=== PATIENT | male | born 1930 | race Caucasian/White ===

== ENCOUNTER 2016-09-07 15:46 | Inpatient (IN) | payer MEDICAID, MEDICARE ==
[2016-09-07] VITALS (8 sets, daily range): BP systolic 162–215; BP diastolic 80–98; PULSE 80–90; RESP 20; TEMP 98.3; O2SAT 93–94; Ht 181.6 cm; Wt 81.6 kg
[~2016-09-07] VITALS: Ht 181.6 cm; Wt 81.6 kg
[2016-09-07] MEDS ORDERED: BISACODYL 10 MG SUPPOSITORY RECTALLY PRN (16:00)
[2016-09-07] MEDS ORDERED: MILK OF MAGNESIA 30 ML SUSP PO PRN (16:00)
[2016-09-07] MEDS ORDERED: NITROGLYCERIN 0.4 MG SUBLINGUAL TABLET SL PRN (16:00)
[2016-09-07] MEDS ORDERED: MAG-AL + SIM LIQUID 30 ML UDC PO PRN (16:00)
[2016-09-07] MEDS ORDERED: PRN ORDERS MC (16:00)
[2016-09-07] MEDS ORDERED: ONDANSETRON 4mg/2ml INJECTION IV PRN (16:00)
--- NOTE | 2016-09-07 16:00 | NUR ---
ADMIT PT ADMITTED TO ROOM 110. PT ASSISTED TO BED WITH THE HELP OF 1 STAFF MEMBER, AND A GAIT BELT FROM THE WHEELCHAIR TO THE BED. THE PATIENT WAS UNABLE TO MOVE ADEQUATELY WITH THIS ASSIST. STAFF ASSISTED WITH A STAND AND PIVOT MOVEMENT. THE PATIENT DID SAFELY GET FROM THE WHEELCHAIR TO THE BED. THE PATIENT DID COMPLAIN OF PAIN WITH MOVEMENT. PT'S DAUGHTER ELIEL CHAN (DPOA) WAS PRESENT UPON ADMISSION. PT SETTLED INTO BED AT THIS TIME. STAFF TO ASSESS.
--- NOTE | 2016-09-07 16:20 | NUR ---
SHAHBAZ JAIME IN ROOM SHAHBAZ JAIME IN ROOM AT THIS TIME TO VISIT WITH THE PATIENT AND FAMILY REGARDING ADMISSION.
--- NOTE | 2016-09-07 16:52 | HPPDOC ---
SHAHBAZ JAIME V PROTOTYPE CARPENTER 09/07/16 1641: HPI - Adult Date DATE: 09/07/16 TIME: 16:36 General Chief Complaint: Fall with right hip pain History of Present Illness Patient is a pleasant 86-year-old gentleman who resides with his in [place], [place] under the care of Dr. Master Watson with [facility]. This morning, patient was ambulating to the front door to obtain his Meals on Wheels tray when he lost his balance and fell onto the right hip. He presented to the [facility] program for evaluation by his primary care provider, however, was unable to get out of the vehicle. Due to the severity in pain. He was sent to [place] for an outpatient x-ray that revealed a nondisplaced fracture of the right femoral neck. The hospitalist services at [facility] were contacted for direct admission for further inpatient evaluation and treatment. Ketan is seen on admission with his daughter at bedside. He complains of right hip pain and is also noted to have a abrasion to the left knee. He is alert however confused about details and history. Daughter confirms that he does have dementia and verifies the patient is a do not resuscitate. All admission medical screening and labs is pending at time of examination. Past Medical History Past Medical History Dimension BPH. Chronic back pain. Chronic constipation. History of abdominal aortic aneurysm. History of cerebral aneurysm Neuropathy Orthostatic hypotension Surgical History Patient's Surgical History: Abdominal aortic aneurysm repair Cerebral aneurysm repair Current Medications Home Meds Reported Medications Vitamin B Complex (B Complex) 1 Each Tablet, 1 TAB PO AC 09/07/16 Moxifloxacin HCl (Vigamox) 30 Drop/3 Ml Drops, BOTH EYES TID, DROP 09/07/16 Tamsulosin HCl (Tamsulosin HCl) 0.4 Mg Cap.er.24h, 0.4 MG PO QOD, CAP Take 1 capsule, by mouth, 1 time a day (at BEDTIME). 09/07/16 Sennosides (Senna) 8.6 Mg Tablet, 8.6 MG PO BID Y for CONSTIPATION, TAB 09/07/16 Prednisolone Acetate (Omnipred) 10 Ml Drops.susp, 1 DROP OP 6XD, ML 09/07/16 Polyethylene Glycol 3350 (Miralax) 17 Gm Powd.pack, 17 G PO BID, BOTTLE Take 17 Grams (1 capful), by mouth, once a day. 09/07/16 Magnesium Hydroxide (Milk of Magnesia) 400 Mg/5 Ml Oral.susp, 30 ML PO DAILY 09/07/16 Clonazepam (Klonopin) 0.5 Mg Tablet, 1 TAB PO TID, TAB 09/07/16 Gabapentin (Gabapentin) 300 Mg Capsule, 1 CAP PO BID, CAP 09/07/16 Fludrocortisone Acetate (Fludrocortisone Acetate) 0.1 Mg Tablet, 0.1 MG PO DAILY , TAB 09/07/16 Atropine Sulfate in 0.9% NaCl (Atropine 0.01%-Ns Eye Drops) 10 Ml Drops, 1 DROP LEFT EYE BID 09/07/16 Aspirin *EC* (Low Dose Aspirin EC) 81 Mg Tablet.dr, 1 TAB PO DAILY, TAB 09/07/16 Lubiprostone (Amitiza) 8 Mcg Capsule, 1 CAP PO BID, CAP 09/07/16 Acetaminophen (Tylenol) 325 Mg Tablet, 2 TAB PO Q6H Y for PAIN, TAB 09/07/16 Allergies: Coded Allergies: No Known Allergies (Unverified , 09/07/16) Family History Family History: unknown by patient Social History Smoking Status: Never smoker Substance Use Type: does not use Alcohol Intake: none Marital Status: Sexuality: female partner Housing: house Advance Directives: Yes DNR, Yes DPOA for Healthcare Only (ELIEL CHAN) Social History Comments PCP Dr Master Watson ([facility] program) Review of Systems Unable to Obtain ROS Due to: dementia Comments Unable to obtain accurate ROS due to dementia. He does complain of right hip pain. Physical Exam General General Nourishment: well nourished, well developed Height (Feet): 5 Height (Inches): 11.50 Eyes Brief: FOUND: PERRL ENMT Brief: FOUND: mucosa moist, normal dentition, NOT FOUND: pharnyx erythema Respiratory Brief: FOUND: clear all sanchez, equal bilaterally, NOT FOUND: wheezes Cardiovascular (brief) Cardiac Brief: FOUND: regular rate, regular rhythm, NOT FOUND: murmur, pedal edema Abdomen (brief) Abdominal Brief: FOUND: BS normo active x4, soft Musculoskeletal (brief) Musculoskeletal Brief: FOUND: tenderness Comments Right leg is shortened Neurologic (brief) Neurological Brief: FOUND: cranial 2-12 intact Neurologic RN Documented GCS Eye Opening: Verbal: Motor: Total: Psychiatric (brief) FOUND: alert, attentive, normal affect Comments Pleasantly confused Assessment & Plan Problems: (1) Fall Status: Acute Qualifiers: Encounter type: initial encounter Qualified Codes: W19.XXXA - Unspecified fall, initial encounter (2) Hip fracture, right Status: Acute Qualifiers: Encounter type: initial encounter Fracture type: closed Qualified Codes: S72.001A - Fracture of unspecified part of neck of right femur, initial encounter for closed fracture (3) BPH (benign prostatic hyperplasia) Status: Chronic (4) Peripheral neuropathy Status: Chronic (5) Orthostatic hypotension Status: Chronic (6) Chronic back pain Status: Chronic (7) Chronic constipation Status: Chronic (8) Dementia Status: Chronic (9) History of AAA (abdominal aortic aneurysm) repair Status: Resolved (10) History of cerebellar hemorrhage Status: Resolved Plan/Intensity of Service Admit patient to inpatient status under care of Dr. Beard for fall with right hip fracture. Auscultation is placed tube. Dr. Winkler for further orthopedic recommendations and treatment. Obtain the following basic medical screening on admission. CBC, CMP, INR, urinalysis, type and screen, EKG. Will of pain in one view chest x-ray, as well as pelvis with one view right hip Place Walsh catheter to dependent drainage IV lock. Will initiate IV fluids, normal saline at 100 ML per hour Patient may have regular diet this evening, however, will place patient nothing by mouth at midnight Dilaudid as needed for pain control and Zofran available as needed for nausea. Did discuss dementia and advanced directives with patient's daughter. She does verify patient is a do not resuscitate and this orders written. Will discuss further plan of care with attending, Dr. Beard. At time of discharge medical care will return to primary care provider with the [facility], Dr. Master Watson Code Status Do Not Resuscitate Hospital Course Summary Disclaimer The hospital course summary below is not to be considered part of the above Progress Note. Hospital Course Summary Admit patient to inpatient status under care of Dr. Beard for fall with right hip fracture. Auscultation is placed tube. Dr. Winkler for further orthopedic recommendations and treatment. Obtain the following basic medical screening on admission. CBC, CMP, INR, urinalysis, type and screen, EKG. Will of pain in one view chest x-ray, as well as pelvis with one view right hip Place Walsh catheter to dependent drainage IV lock. Will initiate IV fluids, normal saline at 100 ML per hour Patient may have regular diet this evening, however, will place patient nothing by mouth at midnight Dilaudid as needed for pain control and Zofran available as needed for nausea. Did discuss dementia and advanced directives with patient's daughter. She does verify patient is a do not resuscitate and this orders written. Will discuss further plan of care with attending, Dr. Beard. At time of discharge medical care will return to primary care provider with the [facility] program, TANK Lundberg MD 09/07/16 0991: Past Medical History Current Medications Home Meds Reported Medications Vitamin B Complex (B Complex) 1 Each Tablet, 1 TAB PO AC 09/07/16 Moxifloxacin HCl (Vigamox) 30 Drop/3 Ml Drops, BOTH EYES TID, DROP 09/07/16 Tamsulosin HCl (Tamsulosin HCl) 0.4 Mg Cap.er.24h, 0.4 MG PO QOD, CAP Take 1 capsule, by mouth, 1 time a day (at BEDTIME). 09/07/16 Sennosides (Senna) 8.6 Mg Tablet, 8.6 MG PO BID Y for CONSTIPATION, TAB 09/07/16 Prednisolone Acetate (Omnipred) 10 Ml Drops.susp, 1 DROP OP 6XD, ML 09/07/16 Polyethylene Glycol 3350 (Miralax) 17 Gm Powd.pack, 17 G PO BID, BOTTLE Take 17 Grams (1 capful), by mouth, once a day. 09/07/16 Magnesium Hydroxide (Milk of Magnesia) 400 Mg/5 Ml Oral.susp, 30 ML PO DAILY 09/07/16 Clonazepam (Klonopin) 0.5 Mg Tablet, 1 TAB PO TID, TAB 09/07/16 Gabapentin (Gabapentin) 300 Mg Capsule, 1 CAP PO BID, CAP 09/07/16 Fludrocortisone Acetate (Fludrocortisone Acetate) 0.1 Mg Tablet, 0.1 MG PO DAILY , TAB 09/07/16 Atropine Sulfate in 0.9% NaCl (Atropine 0.01%-Ns Eye Drops) 10 Ml Drops, 1 DROP LEFT EYE BID 09/07/16 Aspirin *EC* (Low Dose Aspirin EC) 81 Mg Tablet.dr, 1 TAB PO DAILY, TAB 09/07/16 Lubiprostone (Amitiza) 8 Mcg Capsule, 1 CAP PO BID, CAP 09/07/16 Acetaminophen (Tylenol) 325 Mg Tablet, 2 TAB PO Q6H Y for PAIN, TAB 09/07/16 Allergies: Coded Allergies: No Known Allergies (Unverified , 09/07/16) Assessment & Plan Problems: (1) Hip fracture, right Status: Acute Qualifiers: Encounter type: initial encounter Fracture type: closed Qualified Codes: S72.001A - Fracture of unspecified part of neck of right femur, initial encounter for closed fracture (2) Fall Status: Acute Qualifiers: Encounter type: initial encounter Qualified Codes: W19.XXXA - Unspecified fall, initial encounter (3) BPH (benign prostatic hyperplasia) Status: Chronic (4) Peripheral neuropathy Status: Chronic (5) Orthostatic hypotension Status: Chronic (6) Chronic back pain Status: Chronic (7) Chronic constipation Status: Chronic (8) Dementia Status: Chronic (9) History of AAA (abdominal aortic aneurysm) repair Status: Resolved (10) History of cerebellar hemorrhage Status: Resolved (11) Hypernatremia Status: Acute Assessment & Plan: POA (12) Hypokalemia Status: Acute Assessment & Plan: POA Plan/Intensity of Service Have independently interviewed and examined pt. Chart reviewed. Case discussed with Dr Watson and my PROTOTYPE CARPENTER. Care plan developed with my supervision; agree with above. Lost footing this morning and fell-sore on right hip with landing. Hurts to move leg or bear weight. Did not feel dizzy, have palpitations, or lose consciousness. When in to clinic for evaluation, but had too much pain with movement to get out of car. Sent for xray which showed hip fracture. In his typical state of health prior to injury. Breathing stable-no SOA, cough or congestion. Denies chest pressure, pain or palpitations. Reports keeps active by biking. No nausea. Lungs: clear CV: regular AB: Soft nt/nd +BS MSE: awake alert Plan: Inpatient admission secondary to hip fracture with need for surgical correction. Consult Dr Winkler for definative ortho intervention. IVF of 1/2NS with 20 KCl for hydration and to help correct electrolytes. Monitor blood counts. Control pain. Walsh to monitor urine output and minimize need to get up prior to Sx. IS for pulmonary toilet. SCD for DVT prevention preop, with Lovenox added post op. PT/OT post op to maximize functional status. DNR as per his request. Care to return to Dr Watson at time of discharge from [facility]. DVT Prophylaxis: SCD'S SHAHBAZ JAIME APRN September 07, 2016 16:41 TANK BEARD MD September 07, 2016 18:48
[2016-09-07] MEDS ORDERED: NORMAL SALINE 1,000 ML IV SCH (17:00)
--- NOTE | 2016-09-07 17:06 | DI ---
Indication: ITS.REASON: LATERAL, FRACTURE RIGHT FEMUR PROCEDURE: PELVIS W/1 VIEW RT HIP: Encounter: Initial Comparison: None Findings: Minimally displaced fracture of the subcapital right femoral neck. No additional acute fracture or dislocation seen. Mild degenerative changes in both hips and the lower lumbar spine. IVC filter noted. There is slight offset of the head neck junction noted on the crosstable lateral view. Impression: Closed posttraumatic subcapital right femoral neck fracture. .
--- NOTE | 2016-09-07 17:07 | DI ---
Indication: ITS.REASON: Pre op PROCEDURE: CHEST 1 VIEW: Encounter: Initial Comparison: None FINDINGS: The lungs are clear. There is no abnormal airspace opacity, pleural effusion or pneumothorax identified. The heart size, pulmonary vasculature and mediastinum are within normal limits. Degenerative change in the spine. IMPRESSION: No acute cardiopulmonary abnormality. .
[2016-09-07] MEDS ORDERED: PRED10DR15 OP (17:08)
[2016-09-07] MEDS ORDERED: ASPI-914 PO (17:08)
[2016-09-07] MEDS ORDERED: GABA-338 PO (17:08)
[2016-09-07] MEDS ORDERED: ATRO10DR LEFT EYE (17:08)
[2016-09-07] MEDS ORDERED: MAGN400O4 PO (17:08)
[2016-09-07] MEDS ORDERED: POLY17PO6 PO (17:08)
[2016-09-07] MEDS ORDERED: TAMS0.4C47 PO (17:08)
[2016-09-07] MEDS ORDERED: SENN-156 PO (17:08)
[2016-09-07] MEDS ORDERED: MOXI3DRO BOTH EYES (17:08)
[2016-09-07] MEDS ORDERED: FLUD0.1T PO (17:08)
[2016-09-07] MEDS ORDERED: VITA-302 PO (17:08)
[2016-09-07] MEDS ORDERED: ACET-2321 PO (17:08)
[2016-09-07] MEDS ORDERED: CLON0.5T PO (17:08)
[2016-09-07] MEDS ORDERED: LUBI8CAP PO (17:08)
[2016-09-07 17:15] LABS: INR 1.06 (0.76-1.04); PROTHROMBIN TIME 11.6 SEC (9.31-12.49)
[2016-09-07 17:16] LABS: BASOPHILS % (AUTO) 0.1 % (0-2); EOSINOPHILS % (AUTO) 0.3 % (0-4); HCT - HEMATOCRIT 34.3 % (41-53); HGB - HEMOGLOBIN 11.5 GM/DL (13.5-17.5); IMMATURE GRANULOCYTE # (AUTO) 0.03 T/MM3 (0.00-0.03); IMMATURE GRANULOCYTE % (AUTO) 0.3 % (0.0-0.5); LYMPHOCYTES # (AUTO) 1.2 T/MM3 (1-4.8); LYMPHOCYTES % (AUTO) 13.1 % (23-45); MEAN CORPUSCULAR HGB 32.8 UUG (26-34); MEAN CORPUSCULAR HGB CONC(MCHC 33.5 GM/DL (31-37); MEAN CORPUSCULAR VOLUME 97.7 UM3 (80-100); MEAN PLATELET VOLUME 10.7 UM3 (9.4-12.4); MONOCYTES # (AUTO) 0.6 T/MM3 (0-0.8); MONOCYTES % (AUTO) 6.4 % (0-9.0); NEUTROPHILS #(AUTO)-ABSOLUTE 7.2 T/MM3 (1.8-7.7); NEUTROPHILS % (AUTO) 79.8 % (33-66); RED BLOOD COUNT 3.51 M/MM3 (4.50-5.90)
[2016-09-07 17:24] LABS: ALBUMIN 3.9 G/DL (3.5-5.0); ALBUMIN/GLOBULIN RATIO 1.4 RATIO (1.1-2.2); ALKALINE PHOSPHATASE 97 U/L (38-126); ALT (SGPT) 44 U/L (21-72); ANION GAP 14 MEQ/L (5-15); AST (SGOT) 24 U/L (17-59); BUN/CREATININE RATIO 20 RATIO (6-26); CALCIUM 9.2 MG/DL (8.4-10.2); CHLORIDE 105 MEQ/L (98-107); CO2 - CARBON DIOXIDE 29 MEQ/L (22-30); CREATININE 1.1 MG/DL (0.8-1.5); GLOMERULAR FILTRATION RATE 63; GLUCOSE 107 MG/DL (75-110); POTASSIUM 3.5 MEQ/L (3.6-5); SODIUM 148 MEQ/L (134-144); TOTAL PROTEIN 6.7 G/DL (6.3-8.2)
[2016-09-07 17:36] LABS: BLOOD, URINE 2+ (NEGATIVE); COLOR,URINE YELLOW (YELLOW); LEUKOCYTE ESTERASE ,URINE NEGATIVE (NEGATIVE); NITRITE,URINE NEGATIVE (NEGATIVE); UROBILINOGEN,URINE 0.2 EU/DL (NORMAL)
[2016-09-07] MEDS: HYDROMORPHONE 2mg/ml INJECTION IV PRN ×2 (17:42→21:55)
[2016-09-07 17:43] LABS: SQUAMOUS EPITHELIAL CELL,UR NONE SEEN
[2016-09-07 17:44] LABS: BACTERIA,URINE NONE SEEN (NEGATIVE)
[2016-09-07] MEDS ORDERED: CLONIDINE 0.1 MG TABLET PO ONE (18:30)
[2016-09-07] MEDS: NS KCL 20 MEQ 1,000 ML IV SCH (18:30)
--- NOTE | 2016-09-07 19:58 | NUR ---
SHIFT SUMMARY PATIENT IS ALERT AND ORIENTED X3 AT TIMES. PATIENT HAS A HX OF DEMENTIA. PATIENTS VITALS ARE STABLE AND PATIENT IS ON ROOM AIR. SMALLS IS PATENT AND DRAINING. PATIENT HAS REQUIRED 1X PRN IV PAIN MEDICATION. PATIENT FAMILY HAS BEEN AT BEDSIDE. WILL CONTINUE TO MONITOR.
--- NOTE | 2016-09-07 20:50 | NUR ---
Lab calls with results of Blood type, Screen and cross match. Lab reports positive screen; antibody present so panal was ran with Aj A present; antigen found and done. Two units of compatible blood in House if needed.
[2016-09-07] MEDS: CALCIUM 600mg + VIT D 400 TABLET PO SCH (21:52)
[2016-09-07] MEDS: DUTASTERIDE 0.5 MG CAPSULE PO SCH (21:52)
[2016-09-07] MEDS: TAMSULOSIN 0.4 MG CAPSULE PO SCH (21:53)
[2016-09-07] MEDS: POLYETHYL.GLYCOL 3350 PACKET 17gm PO SCH (21:59)
[2016-09-07] MEDS: SENNA + DOCUSATE TAB PO SCH (22:00)
[2016-09-08] VITALS (30 sets, daily range): BP systolic 119–186; BP diastolic 52–93; PULSE 74–99; RESP 12–23; TEMP 96–98.5; O2SAT 91–100
[2016-09-08] MEDS: HYDROMORPHONE 2mg/ml INJECTION IV PRN ×3 (01:44→09:17)
[2016-09-08] MEDS: NS KCL 20 MEQ 1,000 ML IV SCH ×2 (03:47→22:22)
[2016-09-08 05:30] LABS: BASOPHILS % (AUTO) 0.2 % (0-2); EOSINOPHILS # (AUTO) 0.1 T/MM3 (0-0.5); EOSINOPHILS % (AUTO) 1.8 % (0-4); HCT - HEMATOCRIT 29.8 % (41-53); HGB - HEMOGLOBIN 10.2 GM/DL (13.5-17.5); IMMATURE GRANULOCYTE # (AUTO) 0.02 T/MM3 (0.00-0.03); IMMATURE GRANULOCYTE % (AUTO) 0.3 % (0.0-0.5); LYMPHOCYTES # (AUTO) 0.9 T/MM3 (1-4.8); LYMPHOCYTES % (AUTO) 13.6 % (23-45); MEAN CORPUSCULAR HGB 33.2 UUG (26-34); MEAN CORPUSCULAR HGB CONC(MCHC 34.2 GM/DL (31-37); MEAN CORPUSCULAR VOLUME 97.1 UM3 (80-100); MEAN PLATELET VOLUME 11.4 UM3 (9.4-12.4); MONOCYTES # (AUTO) 0.7 T/MM3 (0-0.8); NEUTROPHILS #(AUTO)-ABSOLUTE 4.9 T/MM3 (1.8-7.7); NEUTROPHILS % (AUTO) 73.1 % (33-66); RED BLOOD COUNT 3.07 M/MM3 (4.50-5.90); WBC - WHITE BLOOD COUNT 6.6 T/MM3 (4.5-11.0)
[2016-09-08 05:36] LABS: ANION GAP 9 MEQ/L (5-15); BUN/CREATININE RATIO 20 RATIO (6-26); CALCIUM 8.7 MG/DL (8.4-10.2); CHLORIDE 106 MEQ/L (98-107); CO2 - CARBON DIOXIDE 27 MEQ/L (22-30); GLOMERULAR FILTRATION RATE 71; GLUCOSE 132 MG/DL (75-110); POTASSIUM 3.6 MEQ/L (3.6-5); SODIUM 142 MEQ/L (134-144)
--- NOTE | 2016-09-08 06:30 | NUR ---
END OF SHIFT SUMMARY: Alert and orientated with episodes of forgetfulness and confusion. Remains pleasant and cooperative. Dilaudid 0.5 mg. IV given X 3 during this shift for pain in right hip area. Slept at intervals. NS with 20 meq. KCL infuses at 75/cc/hr. Walsh cathater patent with clear yellow urine draining to DD bag. Labs this morning show Potassium ands Sodium levels within normal range this AM. This Nurse spoke with Pt. , Aury Godwin this AM to let her know Dr. Emanuel had been in to see her ; with surgery planned for today. Aury states Son, Mike Godwin is DPOA. Passed onto Day shift Nurse.
--- NOTE | 2016-09-08 06:41 | CONSPD ---
Consultation Info Date DATE: 09/08/16 TIME: 06:32 Attending Physician Nic Hernandez Reason for Consultation: Right Subcapital Femoral Neck Fracture Impression/Recommendation Impression/Recommendation: (1) Fracture of femoral neck, right, closed Status: Acute Qualifiers: Encounter type: initial encounter Qualified Codes: S72.001A - Fracture of unspecified part of neck of right femur, initial encounter for closed fracture Recommendation: Patient has dementia with acute closed right femoral neck fracture that is angulated in varus. Recommend right hip hemiarthroplasty for comfort, early mobilization, and stability. Discussed the surgery including the risks, benefits, alternatives and potential complications including, but not limited to: continued pain, possible instability, decreased mobility, anesthesia risk, neurovascular injury, infection and others. Patient is DNR. Family wishes to proceed. Will plan to schedule for today. Depending on OR time and availability, could be myself or Dr. Winkler as primary surgeon. NPO at this time. Continue pain control. DVT prophylaxis mechanically until post op. Ortho HPI HPI Elements Location: FOUND hip (right) Injury: Yes (fall at home) Onset: Sudden Radiating: No Duration: FOUND 12-24 hours Previous Surgery: No Previous Injury: No Aggrevated by: FOUND standing, FOUND walking, FOUND all activity, FOUND getting out of a chair Associated Symptoms: NOT FOUND swelling, FOUND sensation of giving way, NOT FOUND numbness Treatments Tried: FOUND pain medications, FOUND rest X-ray Findings: FOUND sub-capital fracture (angulated, varus) Recommendation: FOUND FHR HPI 86 yo male sp fall at home. Transferred from [place] to [place]. Admitted to hospital service. Review of Systems Unable to Obtain ROS Due to: dementia Past Medical History Adult Problem List Updates Dimension BPH. Chronic back pain. Chronic constipation. History of abdominal aortic aneurysm. History of cerebral aneurysm Neuropathy Orthostatic hypotension Surgical History Patient's Surgical History: Abdominal aortic aneurysm repair Cerebral aneurysm repair Current Medications Acetaminophen (Tylenol) 325 Mg Tablet, 2 TAB PO Q6H PRN for PAIN, (Reported) Aspirin *EC* (Low Dose Aspirin EC) 81 Mg Tablet.dr, 1 TAB PO DAILY, (Reported) Last Taken: UNKNOWN on Unknown Date & Time Clonazepam (Klonopin) 0.5 Mg Tablet, 1 TAB PO TID, (Reported) Last Taken: UNKNOWN on Unknown Date & Time Fludrocortisone Acetate ( Fludrocortisone Acetate) 0.1 Mg Tablet, 0.1 MG PO DAILY, (Reported) Last Taken: UNKNOWN on Unknown Date & Time Gabapentin (Gabapentin) 300 Mg Capsule, 1 CAP PO BID, (Reported) Last Taken: UNKNOWN on Unknown Date & Time Lubiprostone (Amitiza) 8 Mcg Capsule, 1 CAP PO BID, (Reported) Last Taken: UNKNOWN on Unknown Date & Time Magnesium Hydroxide (Milk of Magnesia) 400 Mg/5 Ml Oral.susp, 30 ML PO DAILY, (Reported) Last Taken: UNKNOWN on Unknown Date & Time Polyethylene Glycol 3350 (Miralax ) 17 Gm Powd.pack, 17 G PO BID, (Reported) Take 17 Grams (1 capful), by mouth, once a day. Last Taken: UNKNOWN on Unknown Date & Time Sennosides (Senna) 8.6 Mg Tablet , 8.6 MG PO BID PRN for CONSTIPATION, (Reported) Last Taken: UNKNOWN on Unknown Date & Time Tamsulosin HCl (Tamsulosin HCl) 0.4 Mg Cap.er.24h, 0.4 MG PO QOD, (Reported) Take 1 capsule, by mouth, 1 time a day (at BEDTIME). Last Taken: UNKNOWN on Unknown Date & Time Vitamin B Complex (B Complex) 1 Each Tablet, 1 TAB PO AC, (Reported) Last Taken: UNKNOWN on Unknown Date & Time Allergies Allergies: Coded Allergies: No Known Allergies (Unverified , 09/07/16) Family History Family History: unknown by patient Vaccines No Social History Smoking Status: Never smoker Substance Use Type: does not use Alcohol Intake: none Marital Status: Sexuality: female partner Housing: house Advance Directives: Yes DNR, Yes DPOA for Healthcare Only (ELIEL CHAN) Physical Exam General General: well nourished, well developed, no acute distress Respiratory FOUND non-labored, NOT FOUND rales, NOT FOUND wheezes Cardiovascular FOUND pedal pulses intact, FOUND regular rate, FOUND regular rhythm, NOT FOUND peripheral edema Capillary Refill: <2 sec Abdomen Abdominal: FOUND BS normo active x4, FOUND soft, NOT FOUND distended, NOT FOUND tender Musculoskeletal Musculoskeletal : Side: Right Hip: FOUND abnormal rotation, FOUND painful PROM, FOUND tender over trochanter, FOUND unequal leg length Musculoskeletal Brief: FOUND: loss of motion, tenderness Integumentary FOUND dry, FOUND pink, FOUND warm Neurologic FOUND intact to light touch, FOUND no deficits Psychiatric FOUND alert, FOUND normal affect, NOT FOUND oriented Laboratory Laboratory Tests Test 09/07/16 16:51 09/07/16 16:52 09/07/16 17:21 09/08/16 04:25 25-Hydroxy Vitamin D Total Pending White Blood Count 9.0T/MM3 6.6T/MM3 Red Blood Count 3.51M/MM3 3.07M/MM3 Hemoglobin 11.5GM/DL 10.2GM/DL Hematocrit 34.3% 29.8% Mean Corpuscular Volume 97.7UM3 97.1UM3 Mean Corpuscular Hemoglobin 32.8UUG 33.2UUG Mean Corpuscular Hemoglobin Concent 33.5GM/DL 34.2GM/DL RDW Standard Deviation 44.6FL 43.4FL Platelet Count 130T/MM3 112T/MM3 Mean Platelet Volume 10.7UM3 11.4UM3 Immature Granulocyte % (Auto) 0.3% 0.3% Neutrophils (%) (Auto) 79.8% 73.1% Lymphocytes (%) (Auto) 13.1% 13.6% Monocytes (%) (Auto) 6.4% 11.0% Eosinophils (%) (Auto) 0.3% 1.8% Basophils (%) (Auto) 0.1% 0.2% Absolute Immature Granulocyte (auto 0.03T/MM3 0.02T/MM3 Absolute Neutrophils (auto) 7.2T/MM3 4.9T/MM3 Absolute Lymphocytes (auto) 1.2T/MM3 0.9T/MM3 Absolute Monocytes (auto) 0.6T/MM3 0.7T/MM3 Absolute Eosinophils (auto) 0.0T/MM3 0.1T/MM3 Absolute Basophils (auto) 0.0T/MM3 0.0T/MM3 Prothromb Time International Ratio 1.06 Turbidity < 20 < 20 Sodium Level 148MEQ/L 142MEQ/L Potassium Level 3.5MEQ/L 3.6MEQ/L Chloride Level 105MEQ/L 106MEQ/L Carbon Dioxide Level 29MEQ/L 27MEQ/L Anion Gap 14MEQ/L 9MEQ/L Blood Urea Nitrogen 22.0MG/DL 20.0MG/DL Creatinine 1.1MG/DL 1.0MG/DL Glomerular Filtration Rate Calc 63 71 BUN/Creatinine Ratio 20RATIO 20RATIO Glucose Level 107MG/DL 132MG/DL Calculated Osmolality 287MOSM/KG 278MOSM/KG Calcium Level 9.2MG/DL 8.7MG/DL Total Bilirubin 0.70MG/DL Icterus Index < 2 < 2 Aspartate Amino Transf (AST/SGOT) 24U/L Alanine Aminotransferase (ALT/SGPT) 44U/L Alkaline Phosphatase 97U/L Total Protein 6.7G/DL Albumin 3.9G/DL Globulin 2.8G/DL Albumin/Globulin Ratio 1.4RATIO Chemistry Specimen Hemolysis < 15 < 15 Urine Collection Type Urine Color Yellow Urine Turbidity Sl cloudy Urine pH 5.5 Urine Specific [place] 1.020 Urine Protein Trace Urine Glucose (UA) Negative Urine Ketones Negative Urine Blood 2+ Urine Nitrite Negative Urine Bilirubin Negative Urine Urobilinogen 0.2EU/DL Urine Leukocyte Esterase Negative Urine RBC 10-20/HPF Urine WBC 5-10/HPF Urine Squamous Epithelial Cells None seen Urine Bacteria None seen Urine Culture Indicated Cult not indicated Radiology Radiology Right subcap femoral neck fracture, varus alignment. NIC HERNANDEZ MD September 08, 2016 06:37
[2016-09-08] MEDS ORDERED: CEFAZOLIN 2 GM VIAL IV ONE (07:00)
[2016-09-08] MEDS ORDERED: NOZIN NASAL SWAB NS ONE (07:00)
--- NOTE | 2016-09-08 08:57 | NUR ---
CM CM IN TO VISIT WITH PT. HE IS ALERT. HIS SON/DPOA, BREANNA, IS PRESENT. CM INTRODUCES HERSELF AND EXPLAINS ROLE IN DC PLANNING. IRU V. SNF OPTIONS ARE DISCUSSED. BREANNA REPORTS THAT THEIR FIRST CHOICE WOULD BE FOR PT TO GO TO [facility] IN [place] FOR SNF. HE CONFIRMS THAT PT IS PART OF [facility] AND REALIZES THAT THEY WILL HAVE TO AUTHORIZE SNF STAY. HE IS REASSURED THAT CM WILL VISIT WITH [facility] AND [facility]. THEY ARE GIVEN [facility] LETTER AND CM CONTACT INFORMATION. LACE SCORE IS 10. Addendum: 09/08/16 at 0859 by JOSELO TRUJILLO RN Amended: Links added.
[2016-09-08] MEDS: POLYETHYL.GLYCOL 3350 PACKET 17gm PO SCH ×2 (09:00→21:39)
[2016-09-08] MEDS: CALCIUM 600mg + VIT D 400 TABLET PO SCH ×2 (09:00→21:40)
[2016-09-08] MEDS: SENNA + DOCUSATE TAB PO SCH ×2 (09:00→21:40)
--- NOTE | 2016-09-08 09:08 | NUR ---
CM VM LEFT FOR [facility] TO LET THEM KNOW THAT PT IS HOSPITALIZED AND THAT CM AND FAMILY ANTICIPATE NEED FOR SNF STAY UPON DC. CM FAXED REFERRAL TO [facility] (P# [phone]) F#[phone].
--- NOTE | 2016-09-08 09:45 | PNPDOC ---
SHAHBAZ JAIME V AGENCY CASHIER 09/08/16 0937: Subjective Date DATE: 09/08/16 TIME: 09:31 Subjective Ketan is seen today in follow up of right hip fracture. He is pleasantly confused this morning during conversation regarding his hip fracture and plan for surgery. He complains to low back soreness from laying on his back all night. Denies having chest pain, shortness of breath or GI complaints. Walsh cath intact and draining. BP 166/84. Objective Vital Signs Vital signs Vital Signs Date Time Temp Pulse Resp B/P Pulse Ox O2 Delivery O2 Flow Rate FiO2 09/08/16 09:17 16 09/08/16 07:46 81 09/08/16 07:30 97.7 166/84 94 Room Air Height (Feet): 5 Height (Inches): 11.50 Weight (Kilograms): 79.800 General General Appearance: Alert, Orientated x 1, Malnourished, Well Developed, Confused, Cooperative, No Acute Distress Eyes (Brief) Eyes: FOUND: EOMI ENMT (Brief) ENMT: FOUND: mucosa moist, normal dentition, NOT FOUND: pharnyx erythema Neck (Brief) Neck: FOUND: midline, NOT FOUND: adenopathy, carotid bruits, tracheal deviation Respiratory (Brief) Respiratory: FOUND: clear all sanchez, equal bilaterally, NOT FOUND: wheezes Cardiovascular (Brief) Cardiac: FOUND: regular rate, regular rhythm, NOT FOUND: murmur, pedal edema Capillary Refill: <2 sec Abdomen (Brief) Abdominal: FOUND: BS normo active x4, soft, NOT FOUND: distended, tender Extremities (Brief) Extremity : Side: Right Extremity: other (hip) Extremity Finding: FOUND: pain Lymphatic (Brief) Lymphatic: NOT FOUND: adenopathy Integumentary (Brief) Integumentary: FOUND: dry, pink, warm Neurologic (Brief) Neurological: FOUND: cranial 2-12 intact Psychiatric (Brief) Psychiatric: FOUND: alert, attentive, normal affect, oriented Laboratory Laboratory Laboratory Tests 09/07/16 16:52 09/08/16 04:25 Laboratory Tests 09/07/16 16:52 09/08/16 04:25 Assessment & Plan Problems: (1) Hip fracture, right Status: Acute Qualifiers: Encounter type: initial encounter Fracture type: closed Qualified Codes: S72.001A - Fracture of unspecified part of neck of right femur, initial encounter for closed fracture (2) Fall Status: Acute Qualifiers: Encounter type: initial encounter Qualified Codes: W19.XXXA - Unspecified fall, initial encounter (3) BPH (benign prostatic hyperplasia) Status: Chronic (4) Peripheral neuropathy Status: Chronic (5) Orthostatic hypotension Status: Chronic (6) Chronic back pain Status: Chronic (7) Chronic constipation Status: Chronic (8) Dementia Status: Chronic (9) History of AAA (abdominal aortic aneurysm) repair Status: Resolved (10) History of cerebellar hemorrhage Status: Resolved (11) Hypernatremia Status: Acute Assessment & Plan: POA (12) Hypokalemia Status: Acute Assessment & Plan: POA Plan/Intensity of Service 09/08/16 Planning for surgery today with Dr Emanuel for repair of right hip fracture Medically appears stable for surgery. Reviewed all labs, EKG and X-ray Will follow daily labs to monitor for post-op anemia. Hgb today is 10.2. Walsh cath to DD. Continue with Flomax and Avodart. Spoke with PCP Dr Master Watson this morning regarding post-op discharge plan. He recommends that patient will need a facility for rehab. Code Status Do Not Resuscitate Hospital Course Summary Disclaimer The hospital course summary below is not to be considered part of the above Progress Note. Hospital Course Summary Admit patient to inpatient status under care of Dr. Beard for fall with right hip fracture. Auscultation is placed tube. Dr. Winkler for further orthopedic recommendations and treatment. Obtain the following basic medical screening on admission. CBC, CMP, INR, urinalysis, type and screen, EKG. Will of pain in one view chest x-ray, as well as pelvis with one view right hip Place Walsh catheter to dependent drainage IV lock. Will initiate IV fluids, normal saline at 100 ML per hour Patient may have regular diet this evening, however, will place patient nothing by mouth at midnight Dilaudid as needed for pain control and Zofran available as needed for nausea. Did discuss dementia and advanced directives with patient's daughter. She does verify patient is a do not resuscitate and this orders written. Will discuss further plan of care with attending, Dr. Beard. At time of discharge medical care will return to primary care provider with [facility], Dr. Master Watson 09/08/16 Planning for surgery today with Dr Emanuel for repair of right hip fracture Medically appears stable for surgery. Reviewed all labs, EKG and X-ray Will follow daily labs to monitor for post-op anemia. Hgb today is 10.2. Walsh cath to DD. Continue with Flomax and Avodart. Spoke with PCP Dr Master Watson this morning regarding post-op discharge plan. He recommends that patient will need a facility for rehab. TANK BEARD MD 09/08/16 1633: Assessment & Plan Plan/Intensity of Service Have independently interviewed and examined pt. Chart reviewed. Case discussed with CM and my AGENCY CASHIER. Care plan developed with my supervision; agree with above. Doing well post op this afternoon. No pain or nausea. Breathing well. Lungs; clear, no distress CV: regular AB; soft nt/nd +BS MSE: awake alert appropriate Plan: Continue with supportive post op care. Continue with IVF until taking oral well. PT/OT to help functional status. Monitor blood counts. Encourage IS and deep breathing. Work on bowel motivation. Will have Haldol available as needed for agitation. CM working on Skilled options for discharge care. High risk medication involved - IV Dilaudid. DVT Prophylaxis: SCD'S, Loveradhax SHAHBAZ JAIME V AGENCY CASHIER September 08, 2016 09:37 TANK BEARD MD September 08, 2016 16:33
--- NOTE | 2016-09-08 11:03 | NUR ---
IV site Pt was pulling at gown, bumped IV site and bent the catheter. Pt instructed to leave hospital gown on, Pt verbalized understanding. IV site removed at this time, perianesthesia to restart IV site.
--- NOTE | 2016-09-08 11:05 | NUR ---
Off unit Pt transferred to Perianesthesia at this time via bed. Pt on RA.
[2016-09-08] MEDS ORDERED: BUPIVACAINE 0.25%/EPI 1:200,000 30ml SDV ONE (11:28)
[2016-09-08] MEDS ORDERED: VANCOMYCIN 1 GRAM INJECTION ONE (11:29)
[2016-09-08] MEDS: NOZIN NASAL SWAB NS SCH ×2 (11:50→16:52)
--- NOTE | 2016-09-08 11:52 | ANESPREOP ---
Anesthesia Record Date and Time DATE: 09/08/16 TIME: 11:46 Pre-Op Diagnosis Right femoral head fracture Proposed Surgical Procedure ORIF Right Hip NPO since: [place] Allergies: Coded Allergies: No Known Allergies (Unverified , 09/07/16) Ht/Wt/BMI Height: 5 ' 11.50 " Weight: 79.800 kg BMI: 27.4 kg/m2 Vital Signs Date Time Temp Pulse Resp B/P Pulse Ox O2 Delivery O2 Flow Rate FiO2 09/08/16 11:16 98.5 81 15 186/81 92 Room Air Medications Inpatient Medications Current Medications Medications (Trade) Dose Ordered Sig/Dipti Start Time Stop Time Status Last Admin Dose Admin Ondansetron HCl (Zofran) 4 mg Q6H PRN 09/07/16 16:00 Hydromorphone HCl (Dilaudid) 0.5 mg Q3H PRN 09/07/16 16:00 09/08/16 09:17 0.5 MG Miscellaneous Medication (May use PRN orders) PRN PRN 09/07/16 16:00 Magnesium Hydroxide (Mom) 30 ml DAILY PRN 09/07/16 16:00 Bisacodyl (Dulcolax) 10 mg DAILY PRN 09/07/16 16:00 Al Hydroxide/Mg Hydroxide (Maalox) 30 ml Q3H PRN 09/07/16 16:00 Acetaminophen (Tylenol Regular Strength) 1-2 TABS PO Q5H PRN 09/07/16 16:00 Nitroglycerin (Nitrostat) 0.4 mg Q5M PRN 09/07/16 16:00 Polyethylene Glycol (Miralax) 17 g BID 09/07/16 21:00 09/07/16 21:59 17 G Senna/Docusate Sodium (Senna Plus) 1 tab BID 09/07/16 21:00 09/07/16 22:00 1 TAB Tamsulosin HCl (FLOMAX 0.4 mg) 0.4 mg HS 09/07/16 22:00 09/07/16 21:53 0.4 MG Dutasteride (Avodart) 0.5 mg HS 09/07/16 22:00 09/07/16 21:52 0.5 MG Calcium/Vitamin D 1 tab 1 tab BID 09/07/16 21:00 09/07/16 21:52 1 TAB Sodium Chloride 1,000 ml @ 100 mls/hr Q10H 09/07/16 17:00 09/07/16 18:26 DC 09/07/16 17:42 100 MLS/HR Potassium Chloride/Sodium Chloride (Normal Saline w/ KCl 20 Meq) 1,000 ml @ 75 mls/hr [id number] 09/07/16 18:30 09/08/16 03:47 75 MLS/HR Multi-Ingredient Antiseptic 1 each 1 each Q8HR 09/08/16 09:00 Sodium Chloride (Normal Saline IV) 1,000 ml @ 0 mls/hr Q0M PRN 09/08/16 11:08 Acetaminophen (Tylenol) 325 Mg Tablet, 2 TAB PO Q6H PRN for PAIN, (Reported) Aspirin *EC* (Low Dose Aspirin EC) 81 Mg Tablet.dr, 1 TAB PO DAILY, (Reported) Last Taken: on Unknown Date & Time Clonazepam (Klonopin) 0.5 Mg Tablet, 1 TAB PO TID, (Reported) Last Taken: on Unknown Date & Time Fludrocortisone Acetate ( Fludrocortisone Acetate) 0.1 Mg Tablet, 0.1 MG PO DAILY, (Reported) Last Taken: on Unknown Date & Time Gabapentin (Gabapentin) 300 Mg Capsule, 1 CAP PO BID, (Reported) Last Taken: on Unknown Date & Time Lubiprostone (Amitiza) 8 Mcg Capsule, 1 CAP PO BID, (Reported) Last Taken: on Unknown Date & Time Magnesium Hydroxide (Milk of Magnesia) 400 Mg/5 Ml Oral.susp, 30 ML PO DAILY, (Reported) Last Taken: on Unknown Date & Time Polyethylene Glycol 3350 (Miralax) 17 Gm Powd.pack, 17 G PO BID, (Reported) Take 17 Grams (1 capful), by mouth, once a day. Last Taken: on Unknown Date & Time Sennosides (Senna) 8.6 Mg Tablet, 8.6 MG PO BID PRN for CONSTIPATION, (Reported) Last Taken: on Unknown Date & Time Tamsulosin HCl (Tamsulosin HCl) 0.4 Mg Cap.er.24h, 0.4 MG PO QOD, (Reported) Take 1 capsule, by mouth, 1 time a day (at BEDTIME). Last Taken: on Unknown Date & Time Vitamin B Complex (B Complex) 1 Each Tablet, 1 TAB PO AC, (Reported) Last Taken: on Unknown Date & Time Currently on Beta Chad: No Medical/Surgical History Anesthesia PMH: Denies: *Hypertension, *MA, Asthma, Blood Transfusion Reac, CHF , COPD, CVA/Stroke/TIA, Cancer, Seizures Smoking Status: Never smoker Use Chewing Tobacco?: No Substance Use Type: does not use Alcohol Intake: none Past Surgical History Orthopedic Surgeries: No Abdominal Surgeries: Yes - ABDOMINAL ANURYSM Genitourinary Surgeries: No Cardiac Surgeries: No Endocrine Surgeries: No Reproductive Surgeries: No Neurological Surgeries: No Ear Surgeries: No Nose Surgeries: No Throat Surgeries: No Other Surgeries: No Anesthesia Adverse Reactions: FOUND none Family Hx of Anesthesia Advers: none Hx of Motion Sickness: No Pertinent Findings Laboratory Tests 09/08/16 04:25 Test 09/07/16 16:52 Prothromb Time International Ratio 1.06 (0.76-1.04) EKG Rhythm: Sinus Rhythm Physical Exam Respiratory: Bilat breath sounds equal, Lungs clear Cardiovascular: FOUND Regular rate, rhythm, FOUND No murmur Airway Assessment Mallampati Score: II TMD: 3 Fingerbreadths Overall Assessment: No Airway Concerns, May Be Diff Intubation ASA: 3 Plan Regional: Spinal Discussion Discussed risks/options/alternatives of anesthesia and questions answered. Patient consents. Nursing pain assessment noted. Present: Family Member, Spouse Attestation Statement Prior to the delivery of any anesthetic medication, I examined the patient, developed the plan, obtained the patient's consent and discussed the risk and benefits of the procedure with the patient/guardian. CORWIN MURRAY CRNA September 08, 2016 11:49
[2016-09-08] MEDS: NORMAL SALINE 1,000 ML IV PRN (11:56)
[2016-09-08] MEDS ORDERED: MIDAZOLAM 2mg/2ml INJECTION ONE (12:26)
[2016-09-08] MEDS ORDERED: KETAMINE 500mg/10ml INJECTION ONE (12:27)
[2016-09-08] MEDS ORDERED: FENTANYL 100mcg/2ml INJECTION ONE (12:39)
--- NOTE | 2016-09-08 12:49 | NUR ---
CM PER VM FROM SADAF WITH [facility], THEY DO NOT CONTACT WITH [facility] FOR SNF. THEY CONTACT WITH [facility]. SADAF REQUESTS THAT RECORDS BE FAXED TO HER. SHE WILL CONTACT [facility] ABOUT SNF STAY. CM WILL LET [facility] KNOW THAT SNF STAY WILL NOT BE AUTHORIZED BY [place]. SADAF CAN BE REACHED AT P#[phone] F#[phone]
[2016-09-08] MEDS ORDERED: EPINEPHRINE 0.25 MG, BUPIVACAINE 0.25% 75 MG, MORPHINE SULFATE 15 MG, KETOROLAC 60 MG i... INJ ONE ×5 (13:15)
[2016-09-08] MEDS ORDERED: PROPOFOL 500mg 50 ML IV ONE (13:29)
[2016-09-08] MEDS ORDERED: EPHEDRINE SULFATE 50mg/ml INJECTION ONE (13:32)
[2016-09-08] MEDS ORDERED: PHENYLEPHRINE 10mg/ml INJECTION ONE (13:46)
[2016-09-08] MEDS ORDERED: PROPOFOL 200mg 20 ML IV ONE (14:16)
--- NOTE | 2016-09-08 15:12 | NUR ---
MIGUEL A PT IS IN SURGERY, BUT CM SPOKE WITH BREANNA SEALS, PT SPOUSE AND D-I-L TO LET THEM KNOW THAT [facility] DOES NOT CONTRACT WITH [facility] BUT DOES CONTRACT WITH [facility]. THEY ARE IN AGREEMENT TO POSSIBLE PLACEMENT AT [facility] FOR SNF.
[2016-09-08] MEDS ORDERED: CEFAZOLIN 1 G in NORMAL SALINE 100 ML IV SCH (15:15)
--- NOTE | 2016-09-08 15:15 | PDPROCED ---
Immediate Operative Note DATE: 09/08/16 TIME: 15:14 Preop Diagnosis: Right hip femoral neck fracture Postop Diagnosis: right hip femoral neck fracture Surgical Procedures: R FHR Surgeon: Adelfo Auditing Manager: NANCIE Jarrett Anesthesia: Other (spinal) Complications: none Estimated Blood Loss see anesthesia MORRO RODRIGUEZ September 08, 2016 15:15
--- NOTE | 2016-09-08 15:20 | ANESPO ---
Post-Op Note Date 09/08/16 Time: 15:17 Status Pt Participated in Evaluation: Pt participated in person Vital Signs Date Time Temp Pulse Resp B/P Pulse Ox O2 Delivery O2 Flow Rate FiO2 09/08/16 11:16 98.5 81 15 186/81 92 Room Air Respiratory Function: Airway patent Cardiovascular Function: Regular pulse Mental Status: Lethargic Pain Level Intensity: 0 Unable to Assess Pain Due To: INTRAOP Hydration: IV infusing Complications during Recovery None apparent Follow-Up Instructions Instructions Per Surgeon RADHA SALDIVAR CRNA September 08, 2016 15:20
--- NOTE | 2016-09-08 16:00 | NUR ---
UNABLE TO ASSES SPINAL LEVEL D/T PATIENTS DEMENTIA, UNABLE TO TELL THIS NURSE WHERE SENSATION STARTED.
--- NOTE | 2016-09-08 16:06 | NUR ---
Back to floor Pt transferred back to floor at this time via bed. VS stable on RA. Walsh catheter patent and draining. Family present at time of transfer. Mepilex dressing to the right hip c/d/i. Ice pack in place to the right hip. Pt A&O X2, some confusion at times. Pt denies pain and nausea. Side rails up X3, call light w/in reach, bed alarm on.
[2016-09-08] MEDS: CEFAZOLIN 1 G in NORMAL SALINE 100 ML IV SCH (20:10)
--- NOTE | 2016-09-08 20:54 | OPNOTEF ---
DATE OF SURGERY 09/08/2016 PREOPERATIVE DIAGNOSIS Right subcapital femoral neck fracture. POSTOPERATIVE DIAGNOSIS Right subcapital femoral neck fracture. PROCEDURE Right hip endoprosthesis (hemiarthroplasty). SURGEON Nic Emanuel MD DECKHAND MAINTENANCE Carter Lara PA-C ANESTHESIA Spinal. FLUIDS Please refer to Anesthesia chart EBL 100 mL. COMPLICATIONS None. CONDITION Stable in recovery room. IMPLANTS Starr Omnifit CAMACHO 132-degree cemented hip stem size #7 with +10 neck adjustment sleeve and size 56-mm Unitrax endoprosthesis head. Size small Artisan bone plug cement restrictor. DESCRIPTION OF PROCEDURE The patient was identified in the preoperative holding area. The operative extremity was identified and appropriately marked. Risks, benefits, alternatives and potential complications were discussed with the patient's caregivers and informed consent was obtained. The patient was taken to the operating theatre and placed supine on the operating table with a pegboard underneath. The patient then had spinal anesthesia administered by Anesthesia team. The patient was then positioned in the lateral decubitus position with the right operative hip upwards. The patient was secured to the table with appropriate well-padded pegs. The right lower extremity was then sterilely prepped and draped in the usual fashion. Surgical time-out was performed, confirmed with myself, the fire claims adjuster and the circulating nurse. Preoperative antibiotics had been given. Appropriate surgical landmarks were delineated on the right hip with a surgical marking pen. A standard lateral incision was created centered over the proximal femur extending over the greater trochanter and posteriorly. Electrocautery was used for hemostasis as necessary. The fascia was then identified. A small rent was made in the fascia overlying the greater trochanter. The IT band was then released distally. The gluteal fascia was then bluntly spread posteriorly. Soft tissue retractors were placed. The sciatic nerve was palpated and protected posteriorly. The leg was taken into slight internal rotation and abduction as a retractor was placed under the gluteus medius. This revealed the underlying piriformis tendon. Fascia superior to the piriformis was incised with a Bovie. Blunt dissection with a Bose elevator allowed us to get a retractor underneath the gluteus minimus as well. The piriformis was then released and a stay suture placed. The short external rotators and quadratus were then released until the lesser trochanter could be palpated. Capsulotomy was then performed and the capsule edges were tagged with #5 Ethibond sutures as well for later closure. The hip was then placed in a 90-90 position. Retractors were placed. The external guide was brought forward for the osteotomy cut. After good position of the retractors the osteotomy was performed. Rongeur was used to remove any adjacent bone. The head was then removed from the acetabulum and taken to the back table where it was sized. Trial sizes were then brought forward after inspection and debridement of the acetabulum. We opted for a size 56 which afforded good fit. Attention was then turned towards preparation of the proximal femur. Retractors were again placed. A FastPay cutter was used to open proximal metaphyseal bone. This was followed by the canal finder and sequential reaming. The patient had a fairly tight canal. We were able to ream up to nearly a complete 10 but had to stop at 9. We then sequentially broached up to a 9 which had good distal fit but still did not have good proximal fit. It was elected to proceed with a size 7 cemented stem. This stem remained in place and the calcar planer was used to remove any elevated bone. Trial hip reductions were then performed with various neck sizes in order to gain appropriate length and stability. We had to utilize a +10 mm neck length. This provided overall good stability and appropriate leg length. The wound was irrigated with pulsatile lavage at this time. The hip was dislocated again, removing the stem trial and head. The canal was then irrigated with a brush pulsatile women's soccer coach and then dried. Cement was prepared at the back table as the proximal stem component was opened. A small cement restrictor was placed approximately 1.5 to 2 cm distal to the proposed stem length after measuring the implant and inserting the cement restrictor. Retrograde and pressurized cementing was then performed. The implant was then inserted while maintaining approximately 15 degrees of anteversion. Any extraneous bone cement was removed. The cement was allowed to cure and dry. This provided good fit and orientation and appeared quite stable. Trial reductions were then again performed. It was elected to proceed with the +10 neck and a size 56 head. These were opened at the back table. The Sanchez taper on the stem was cleaned and dried. The neck was then placed and impacted followed by placement and impaction of the head. The socket was again inspected for any loose bodies or debris and none was found. This was then irrigated. The hip was then reduced. Again, range of motion was noted to be good with good overall stability and leg length. Betadine solution was then placed in the wound and allowed to set for three minutes. This was then copiously irrigated out. Vancomycin powder was placed in the joint as the capsular layer was closed. Marcaine and Toradol cocktail was then injected into the surrounding soft tissues. After satisfactory capsular closure the piriformis and short external rotators were repaired using #5 Ethibond through bone tunnels. This level was then copiously irrigated as well and additional vancomycin powder was placed. The IT band fascia was then closed with interrupted [id number] #1 PDS sutures. The gluteal fascia was closed with running #1 Vicryl. This layer was then again irrigated and the last of the vancomycin powder placed. A standard layered skin closure was performed. Cocktail had also been injected into the subcutaneous tissue as well prior to closure. Sterile dressings were applied. The patient was awakened from anesthesia and transferred back to his hospital bed and subsequently to the recovery room in stable and satisfactory condition. IGGY
[2016-09-08] MEDS: TAMSULOSIN 0.4 MG CAPSULE PO SCH (21:40)
[2016-09-08] MEDS: DUTASTERIDE 0.5 MG CAPSULE PO SCH (21:40)
--- NOTE | 2016-09-08 23:23 | NUR ---
SHIFT SUMMARY PATIENT ALERT AND ORIENTED TO SELF AND TIME ONLY THIS SHIFT. VITAL SIGNS ARE STABLE ON 1L NC. PATIENT HAS NOT BEEN UP FROM BED SINCE SURGERY. PATIENT'S URINE OUTPUT HAS BEEN RIGHT AT 25ML/HOUR SINCE 1900. THIS WAS PASSED ON TO THE NEXT RN FOR MONITORING. PATIENT DID BECOME CONFUSED AND DISTRUSTING DURING SHIFT REPORT. THE RELIEVING NURSE AND I TRIED TO DETERMINE WHAT WAS BOTHERING THE PATIENT, BUT HE REFUSED TO TELL US. CARE TO BE RESUMED BY RELIEVING RN.
[2016-09-08] MEDS: HALOPERIDOL 5 MG/ML INJECTION IV PRN (23:38)
[2016-09-08] MEDS: TRAMADOL 50 MG TABLET PO PRN (23:43)
--- NOTE | 2016-09-08 23:54 | NUR ---
PRN haldol and ultram/confusion Pt stating upon initial assess when recieiving report from Roxanne LE, "What the hell you doing to me?" Pt restless and seemed to be less anxious when staying out of the room which was around 2300. Pt then started to get out of bed and stating, "You're gonna kill me, I'm getting out of here." Pt not using hip precautions and very anxious. Pt not physically aggressive but afraid that we were going to hurt him. Pt unable to be reoriented to place and circumstance. Pt offered food/drink but refused. I called Pt's daughter Breanna and had PT talk on the phone with him, but Pt still very anxious and agitated. Pt's daughter asked for Pt to "be sedated," and plan discussed with her about giving IV haldol to help with confusion and agitation, Breanna in agreement. IV haldol given at 2338. Pt adv dementia pain assessment showed 5 for pain, but Pt states no pain. Ultram po given at 2343. Pt became more cooperative with male RN, Brian and was able to calm down and stopped attempting to get out of bed. Pt monitored more close and readjusted and moved in bed to more comfortable position. Pt valencia remains intact and patent. Will continue to monitor. Call light in reach. Bed locked and low. Bed alarm on. Pt room close to the nurses station.
[2016-09-09] VITALS (32 sets, daily range): BP systolic 115–185; BP diastolic 62–90; PULSE 77–119; RESP 18–24; TEMP 97–99.7; O2SAT 94–99
--- NOTE | 2016-09-09 00:20 | NUR ---
UPDATE/ PRN EFFECT Haldol effective and Pt able to be reoriented easier than before. Pt still slightly restless, extra care given and MEMBERSHIP SOLICITOR at bedside until Pt can become more comfortable. Will continue to monitor.
[2016-09-09] MEDS: NOZIN NASAL SWAB NS SCH ×3 (01:00→17:05)
--- NOTE | 2016-09-09 01:05 | NUR ---
NOZIN / PT RESTING PT has been resting since 2344, nozin not given due to Pt just falling asleep and previous agitation. Will continue to monitor.
[2016-09-09] MEDS: TRAMADOL 50 MG TABLET PO PRN (01:35)
--- NOTE | 2016-09-09 02:21 | NUR ---
PT pulled IV out/ hallucinating Rounds performed and talking with Pt to give 2nd ultram, and Pt states, "I've almost got it." Pt then grabbed IV and ripped it out at 0135. IV site checked and catheter still intact. Bandage applied and pressure held until not bleeding. Pt assist x 2 to restart IV at this time. Pt hallucinating, seeing people in the corner and lifting up left arm as if to grab something. Pt has extra care at this time to provide safety. Will continue to monitor.
[2016-09-09] MEDS: HALOPERIDOL 5 MG/ML INJECTION IV PRN (02:54)
--- NOTE | 2016-09-09 02:58 | NUR ---
Haldol PRN Hallucinations/anxiety/pulling at valencia Pt has continued hallucinations and getting more anxious. Attempted to reposition and give fluid/food, but PT too anxious and thinking staff is going to kill him. Stating again, "You're going to get me." PT trying to kick at this RN, when taking Pt's hands off of valencia tube by penis. Male RN brought in again and PT able to calm down a little bit and let go of valencia tube but still hallucinating. Haldol IV given at this time, see eMAR. PT continues to need one on one observation for safety. Will continue to monitor.
[2016-09-09] MEDS: HYDROMORPHONE 2mg/ml INJECTION IV PRN (03:51)
--- NOTE | 2016-09-09 04:10 | NUR ---
NEW ORDER/ PRN HALDOL Dr. Carter Wooten was notified at this time of Pt increasing in anxiety and hallucinations. Pt remains one on one but continues to pull at lines and strings above head and also at valencia. New order received to give haldol iv 2mg x 1. See eMAR. Will continue to monitor.
[2016-09-09] MEDS ORDERED: HALOPERIDOL 5 MG/ML INJECTION IV ONE (04:15)
[2016-09-09] MEDS: CEFAZOLIN 1 G in NORMAL SALINE 100 ML IV SCH (04:33)
[2016-09-09] MEDS ORDERED: LORAZEPAM 2 MG/ML INJECTION IV ONE (04:45)
--- NOTE | 2016-09-09 04:45 | NUR ---
haldol effect/ new order ativan IV Pt given 2mg IV haldol x 1 per order and Pt became very agitated and started fighting staff. Assist x 3 to get PT to stop pulling on valencia. Pt yelled "SNAKE, SNAKE!" right when he grabbed valencia and started pulling it. At the same time I deflated bulb so that Pt didn't pull out valencia with bulb inflated. Able to get PT to calm down enough to reinsert valencia and inflate bulb. Valencia now draining red urine and patent. Spoke with Dr. Carter Wooten and new order for ativan 2mg IV received. Pt refusing vital signs and unable to get morning lab at this time. Will continue to monitor. One on one observation for Pt safety at this time.
--- NOTE | 2016-09-09 04:58 | NUR ---
calming slightly / no ativan yet Pt is now calmer and not fighting. Pt not grabbing out or swatting. Pt blinking eyes as if trying to see what is really there. One on one continued. Door shut so that Pt won't have more stimuli. Ativan held at this time. WIll continue to monitor. Bed alarm on.
[2016-09-09 05:36] LABS: HCT - HEMATOCRIT 25.4 % (41-53); HGB - HEMOGLOBIN 8.4 GM/DL (13.5-17.5); MEAN CORPUSCULAR HGB 32.7 UUG (26-34); MEAN CORPUSCULAR HGB CONC(MCHC 33.1 GM/DL (31-37); MEAN CORPUSCULAR VOLUME 98.8 UM3 (80-100); MEAN PLATELET VOLUME 11.3 UM3 (9.4-12.4); RED BLOOD COUNT 2.57 M/MM3 (4.50-5.90); WBC - WHITE BLOOD COUNT 10.3 T/MM3 (4.5-11.0)
[2016-09-09 05:51] LABS: ANION GAP 11 MEQ/L (5-15); BUN/CREATININE RATIO 19 RATIO (6-26); CALCIUM 8.3 MG/DL (8.4-10.2); CHLORIDE 107 MEQ/L (98-107); CO2 - CARBON DIOXIDE 23 MEQ/L (22-30); GLOMERULAR FILTRATION RATE 71; GLUCOSE 168 MG/DL (75-110); POTASSIUM 3.6 MEQ/L (3.6-5); SODIUM 141 MEQ/L (134-144)
[2016-09-09 06:24] LABS: BAND NEUTROPHILS # 0.7 T/MM3; EOSINOPHILS # (MANUAL) 0.1 T/MM3 (0-0.5); LYMPHOCYTES # (MANUAL) 0.5 T/MM3 (1-4.8); MONOCYTES # (MANUAL) 0.4 T/MM3 (0-0.8); NEUTROPHILS #(MANUAL)-ABSOLUTE 8.5 T/MM3 (1.8-7.7); TOTAL CELLS COUNTED 100 %
[2016-09-09] MEDS ORDERED: LIDOCAINE 1% (10mg/ml) 2ml SDV INJ ONE (07:00)
--- NOTE | 2016-09-09 07:11 | NUR ---
Summary Pt has had restless night. Pt slept a total of 1 hour. Pt has been sensitive to sound in room. Pt not given ativan due to being calmer. Pt valencia remains to be patent and initially was red drainage from Pt pulling on it, but after draining bag, urine output is now yellow. Pt has had low output 175mls at 0230 and 190mls at 0600. Pt fluids encouraged but only took 310mls orally last night. 660mls in via IV: NS with 20KCL @ 75mls/hr. Pt has had pillow in between legs as much as possible last night, but Pt moving around and crossing feet and non-compliant with hip precautions. Pt refused blood pressure at 0400, heart rate and oxygen WNL. Will continue to monitor. Pt remains one on one at this time. I noticed that Pt did have more hallucinations and more agitation after dilaudid IV given. Pt remains confused.
--- NOTE | 2016-09-09 08:26 | DI ---
Indication: ITS.REASON: assess prosthesis PROCEDURE: PELVIS W/1 VIEW RT HIP: Encounter: Initial Comparison: September 07, 2016 Findings: Postoperative changes of right femoral replacement are seen. There is expected postoperative subcutaneous gas. No evidence of hardware failure or acute fracture. No retained radiopaque surgical instruments or sponges seen. Impression: New right femoral prosthesis without evidence of immediate complication. .
--- NOTE | 2016-09-09 08:35 | PDORTHOPN ---
Subjective Date DATE: 09/09/16 TIME: 08:09 Subjective No complaints. He was given Haldol for agitation last night. Objective Vital Signs Vital signs Vital Signs 09/08/16 09/08/16 09/08/16 09/09/16 20:15 23:40 23:49 03:51 Temp 97.5 Pulse 78 99 Resp 20 18 20 B/P 156/93 Pulse Ox 96 O2 Delivery Nasal Cannula Nasal Cannula O2 Flow Rate 1.00 1.00 Height (Feet): 5 Height (Inches): 11.50 Weight (Kilograms): 79.800 General General Appearance: Alert, No Acute Distress Respiratory (Brief) Respiratory Brief: FOUND: non-labored Cardiovascular (Brief) Cardiac: FOUND: calf easily compressible, calf soft, nontender, pedal pulses intact Abdomen (Brief) Abdominal Brief: FOUND: non-tender Musculoskeletal (Brief) Hip: FOUND painful PROM, FOUND tender over trochanter, NOT FOUND abnormal rotation, NOT FOUND unequal leg length Musculoskeletal Brief: FOUND: loss of motion, tenderness, Not FOUND: deformity Surgical Site Incision: FOUND: Mepilex dressing intact, no drainage Integumentary (Brief) Integumentary Brief: FOUND dry, FOUND pink, FOUND warm Neurologic (Brief) Neurological Brief: FOUND: extremities w/o deficits, neuro intact Psychiatric (Brief) Psychiatric Brief: FOUND: alert, no acute distress Laboratory Laboratory Laboratory Tests 09/07/16 16:52 09/08/16 04:25 09/09/16 05:24 Laboratory Tests 09/07/16 16:52 09/08/16 04:25 09/09/16 05:24 Assessment & Plan Problems: (1) Fracture of femoral neck, right, closed Status: Acute Qualifiers: Encounter type: initial encounter Qualified Codes: S72.001A - Fracture of unspecified part of neck of right femur, initial encounter for closed fracture Assessment & Plan: s/p Right hip endoprosthesis by Dr. Emanuel 09/09/16 Lovenox for DVT prevention for 30 days post op. We will need to keep a close eye on his platelet count, 63,000 today. SCDs and mobilize today hospitalist for medical management. I was just notified PT got him up and noted an internal rotation of his right hip, will obtain an X-ray. Hospital Course Summary Disclaimer The visit summary below is not to be considered part of the above Progress Note. Hospital Course Admit patient to inpatient status under care of Dr. Beard for fall with right hip fracture. Auscultation is placed tube. Dr. Winkler for further orthopedic recommendations and treatment. Obtain the following basic medical screening on admission. CBC, CMP, INR, urinalysis, type and screen, EKG. Will of pain in one view chest x-ray, as well as pelvis with one view right hip Place Walsh catheter to dependent drainage IV lock. Will initiate IV fluids, normal saline at 100 ML per hour Patient may have regular diet this evening, however, will place patient nothing by mouth at midnight Dilaudid as needed for pain control and Zofran available as needed for nausea. Did discuss dementia and advanced directives with patient's daughter. She does verify patient is a do not resuscitate and this orders written. Will discuss further plan of care with attending, Dr. Beard. At time of discharge medical care will return to primary care provider with the [facility], Dr. Master Watson 09/08/16 Planning for surgery today with Dr Emanuel for repair of right hip fracture Medically appears stable for surgery. Reviewed all labs, EKG and X-ray Will follow daily labs to monitor for post-op anemia. Hgb today is 10.2. Walsh cath to DD. Continue with Flomax and Avodart. Spoke with PCP Dr Master Watson this morning regarding post-op discharge plan. He recommends that patient will need a facility for rehab. MORRO RODRIGUEZ September 09, 2016 08:35
[2016-09-09] MEDS ORDERED: ENOXAPARIN 40 MG/0.4 ML INJECTION SQ SCH (09:00)
[2016-09-09] MEDS: SENNA + DOCUSATE TAB PO SCH ×2 (09:07→19:54)
[2016-09-09] MEDS: POLYETHYL.GLYCOL 3350 PACKET 17gm PO SCH ×2 (09:07→20:31)
[2016-09-09] MEDS: CALCIUM 600mg + VIT D 400 TABLET PO SCH ×2 (09:08→19:59)
[2016-09-09] MEDS ORDERED: AMLODIPINE 5 MG TABLET PO ONE (09:15)
--- NOTE | 2016-09-09 09:38 | DI ---
Indication: ITS.REASON: INTERNAL ROTATION OF RIGHT LEG PROCEDURE: PELVIS W/1 VIEW RT HIP: Encounter: Initial Comparison: September 08, 2016 Findings: Right femoral head prosthesis appears stable. No acute fracture or dislocation. Subcutaneous gas is again seen. Impression: Stable appearance of the right femoral head replacement. .
[2016-09-09] MEDS: ACETAMINOPHEN 325 MG TABLET PO PRN (10:53)
--- NOTE | 2016-09-09 11:57 | PNPDOC ---
SHAHBAZ JAIME V SPEECH AND HEARING CLINIC DIRECTOR 09/09/16 1149: Subjective Date DATE: 09/09/16 TIME: 11:46 Subjective In this morning while sitting at the nurses station accompanied with to nursing staff members. He continues to be very impulsive and attempts to get out of bed consistently. He was given Haldol overnight, however. Nursing staff feels this made things worse. He was shouting that he found a "snake" in his bed, however, was attempting to pull out his Walsh catheter. Spoke with and son-in-law about this operative confusion and behaviors. Objective Vital Signs Vital signs Vital Signs Date Time Temp Pulse Resp B/P Pulse Ox O2 Delivery O2 Flow Rate FiO2 09/09/16 08:35 99.7 99 20 177/73 95 Nasal Cannula 1.00 Height (Feet): 5 Height (Inches): 11.50 Weight (Kilograms): 82.400 General General Appearance: Alert, Confused, Cooperative, No Acute Distress Eyes (Brief) Eyes: FOUND: EOMI ENMT (Brief) ENMT: FOUND: mucosa moist, normal dentition, NOT FOUND: pharnyx erythema Neck (Brief) Neck: FOUND: midline, NOT FOUND: adenopathy, carotid bruits, tracheal deviation Respiratory (Brief) Respiratory: FOUND: clear all sanchez, equal bilaterally, NOT FOUND: wheezes Cardiovascular (Brief) Cardiac: FOUND: regular rate, regular rhythm, NOT FOUND: murmur, pedal edema Capillary Refill: <2 sec Abdomen (Brief) Abdominal: FOUND: BS normo active x4, soft, NOT FOUND: distended, tender Lymphatic (Brief) Lymphatic: NOT FOUND: adenopathy Musculoskeletal (Brief) Musculoskeletal: NOT FOUND: tenderness Integumentary (Brief) Integumentary: FOUND: dry, pink, warm Neurologic (Brief) Neurological: FOUND: cranial 2-12 intact Psychiatric (Brief) Psychiatric: FOUND: alert, attentive, normal affect Laboratory Laboratory Laboratory Tests 09/07/16 16:52 09/08/16 04:25 09/09/16 05:24 Laboratory Tests 09/07/16 16:52 09/08/16 04:25 09/09/16 05:24 Assessment & Plan Problems: (1) Hip fracture, right Status: Acute Qualifiers: Encounter type: initial encounter Fracture type: closed Qualified Codes: S72.001A - Fracture of unspecified part of neck of right femur, initial encounter for closed fracture (2) Fall Status: Acute Qualifiers: Encounter type: initial encounter Qualified Codes: W19.XXXA - Unspecified fall, initial encounter (3) BPH (benign prostatic hyperplasia) Status: Chronic (4) Peripheral neuropathy Status: Chronic (5) Orthostatic hypotension Status: Chronic (6) Chronic back pain Status: Chronic (7) Chronic constipation Status: Chronic (8) Dementia Status: Chronic (9) History of AAA (abdominal aortic aneurysm) repair Status: Resolved (10) History of cerebellar hemorrhage Status: Resolved (11) Hypernatremia Status: Resolved Assessment & Plan: POA (12) Hypokalemia Status: Resolved Assessment & Plan: POA (13) Postoperative confusion Status: Acute Plan/Intensity of Service 09/09/16 Patient has been having significant postoperative encephalopathy. Discontinued Ultram. Will give scheduled Tylenol for pain control. Will add Seroquel 25 milligrams at at bedtime and a PRN order for 25 mg as needed during the day Have asked nursing staff to bladder retraining patient and hopefully discontinue Walsh catheter later today as patient continues to pull on catheter. Reviewed laboratory studies. Noted patient to have thrombocytopenia, platelets decreased to 63 today. Lovenox placed on hold. Hemoglobin 8.4 will continue to follow. Wean off oxygen as able. Spoke with and son-in-law regarding acute encephalopathy and behaviors. Discharge plan is to go to [facility] for skilled rehabilitation as patient is part of the [facility]. Need to recheck CBC and BMP tomorrow morning to follow blood counts, renal function and electrolytes. Code Status Do Not Resuscitate Hospital Course Summary Disclaimer The hospital course summary below is not to be considered part of the above Progress Note. Hospital Course Summary Admit patient to inpatient status under care of Dr. Beard for fall with right hip fracture. Auscultation is placed tube. Dr. Winkler for further orthopedic recommendations and treatment. Obtain the following basic medical screening on admission. CBC, CMP, INR, urinalysis, type and screen, EKG. Will of pain in one view chest x-ray, as well as pelvis with one view right hip Place Walsh catheter to dependent drainage IV lock. Will initiate IV fluids, normal saline at 100 ML per hour Patient may have regular diet this evening, however, will place patient nothing by mouth at midnight Dilaudid as needed for pain control and Zofran available as needed for nausea. Did discuss dementia and advanced directives with patient's daughter. She does verify patient is a do not resuscitate and this orders written. Will discuss further plan of care with attending, Dr. Beard. At time of discharge medical care will return to primary care provider with the [facility], Dr. Master Watson 09/08/16 Planning for surgery today with Dr Emanuel for repair of right hip fracture Medically appears stable for surgery. Reviewed all labs, EKG and X-ray Will follow daily labs to monitor for post-op anemia. Hgb today is 10.2. Walsh cath to DD. Continue with Flomax and Avodart. Spoke with PCP Dr Master Watson this morning regarding post-op discharge plan. He recommends that patient will need a facility for rehab. 09/09/16 Patient has been having significant postoperative encephalopathy. Discontinued Ultram. Will give scheduled Tylenol for pain control. Will add Seroquel 25 milligrams at at bedtime and a PRN order for 25 mg as needed during the day Have asked nursing staff to bladder retraining patient and hopefully discontinue Walsh catheter later today as patient continues to pull on catheter. Reviewed laboratory studies. Noted patient to have thrombocytopenia, platelets decreased to 63 today. Lovenox placed on hold. Hemoglobin 8.4 will continue to follow. Wean off oxygen as able. Spoke with and son-in-law regarding acute encephalopathy and behaviors. Discharge plan is to go to [facility] for skilled rehabilitation as patient is part of the [facility]. Need to recheck CBC and BMP tomorrow morning to follow blood counts, renal function and electrolytes. TANK BEARD MD 09/09/16 1517: Assessment & Plan Problems: (1) Hip fracture, right Status: Acute Qualifiers: Encounter type: initial encounter Fracture type: closed Qualified Codes: S72.001A - Fracture of unspecified part of neck of right femur, initial encounter for closed fracture (2) Fall Status: Acute Qualifiers: Encounter type: initial encounter Qualified Codes: W19.XXXA - Unspecified fall, initial encounter (3) Blood loss anemia Status: Acute (4) BPH (benign prostatic hyperplasia) Status: Chronic (5) Peripheral neuropathy Status: Chronic (6) Orthostatic hypotension Status: Chronic (7) Chronic back pain Status: Chronic (8) Chronic constipation Status: Chronic (9) Dementia Status: Chronic (10) History of AAA (abdominal aortic aneurysm) repair Status: Resolved (11) History of cerebellar hemorrhage Status: Resolved (12) Hypernatremia Status: Resolved Assessment & Plan: POA (13) Hypokalemia Status: Resolved Assessment & Plan: POA (14) Postoperative confusion Status: Acute (15) Vitamin D deficiency Status: Chronic Assessment & Plan: Dx with admission. (16) Thrombocytopenia Status: Acute Assessment & Plan: Not POA Plan/Intensity of Service Have independently interviewed and examined pt. Chart reviewed. Case discussed with CM, nursing, family, and my SPEECH AND HEARING CLINIC DIRECTOR. Care plan developed with my supervision; agree with above. Rough night-very restless and agitated. Did not sleep. Given Haldol without help -if anything, worsened agitation. Has had restlessness today. However, is eating pretty well. Denies nausea or ab pain. No stool. Not liking Walsh-wants to pull at it. Notes urgency to void with bladder retraining. Breathing stable. BP elevated. Pain doing okay-not hurting significantly. Lungs: decreased, no distress CV: regular AB: soft nt/nd BS decreased MSE; awake alert; not agitated at my interviewed Lab: noted. Plan: Will d/c IVF as taking po well. D/C Walsh-bladder scan to monitor for retention. Norvasc 5mg given times one due to increased BP. Monitor hemoglobin due to post op anemia. [place] 55943 units weekly due to Vit D deficiency. Use routine Tylenol for pain-stop tramadol. Stop Haldol-Seroquel at night and prn. Stop Lovenox due to thrombocytopenia. Encourage pulm toilet. Encourage therapy. Recheck lab in am. DVT Prophylaxis: SCD'S SHAHBAZ JAIME Trace SPEECH AND HEARING CLINIC DIRECTOR September 09, 2016 11:49 TANK BEARD MD September 09, 2016 15:17
[2016-09-09] MEDS: ACETAMINOPHEN 500 MG TABLET PO SCH ×3 (12:17→21:45)
[2016-09-09] MEDS: QUETIAPINE 25 MG TABLET PO PRN ×2 (12:17→19:52)
--- NOTE | 2016-09-09 14:02 | NUR ---
MIGUEL A GRADY SPOKE WITH SADAF FROM [facility] VIA TELEPHONE. SHE IS GIVEN UPDATE ON PT CONDITION AND MADE AWARE THAT AT THIS TIME DR DO NOT ANTICIPATE PT BEING READY FOR DC ON TUESDAY.
[2016-09-09] MEDS ORDERED: ERGOCALCIFEROL 50,000 UNIT CAPSULE PO SCH (14:45)
[2016-09-09 15:07] LABS: HCT - HEMATOCRIT 23.4 % (41-53); HGB - HEMOGLOBIN 7.7 GM/DL (13.5-17.5)
--- NOTE | 2016-09-09 15:19 | NUR ---
CM CM ATTEMPTED VISITS X3. PT UNABLE TO PARTICIPATE IN DC PLANNING. NO FAMILY PRESENT.
[2016-09-09] MEDS: NS KCL 20 MEQ 1,000 ML IV SCH (15:37)
[2016-09-09] MEDS ORDERED: NORMAL SALINE 500 ML IV SCH (17:59)
--- NOTE | 2016-09-09 18:05 | NUR ---
RAPID RESPONSE 1720 WHILE GETTING PT UP TO [facility], INSTRUCTED PT TO BEND KNEE. PT BECAME STIFF, DID NOT FOLLOW COMMANDS, LEANED BACK INTO CHAIR, AND EYES FIXED AND GLAZED. RAPID RESPONSE CALLED AT 1724. PT BECAME ALERT AND TALKING. STRENGTH EQUAL IN ALL EXTREMITIES. ALERT TO PERSON AND TIME. NO ORDERS ACTIVATED VIA RAPID RESPONSE AT THIS TIME NOTIFIED DR SOUTH AT 1729. BELIEVED PT HAD A VAGAL RESPONSE AND HAS HISTORY OF ORTHOSTATIC HYPOTENSION. RN REQUESTED AN EKG,NO NEW ORDERS GIVEN AT THIS TIME. NURSING STAFF TRANSFERRED PT TO [facility] FOR BM. PT PASSED GAS WITHOUT BM. PT READY TO RETURN TO BED. NURSING STAFF ASSISTED PT TO STAND. PT UNABLE TO FOLLOW COMMANDS TO GET TO BED. PT BEGAN TO LEAN BACK AND NURSES ASSISTED HIM TO RETURN TO [facility]. AT THIS TIME PT WAS LOOKING AT GROUND STARING. NURSES ASKED PT TO LOOK AT US, AND PT WAS ABLE TO FOLLOW COMMAND BUT EYES FIXED, GLAZED, AND DILATED. PT STIFFENED AND BECAME RIGID WITH TREMORS. PT WAS NON RESPONSIVE AT TIME. SEE VITALS CHARTED. 174 RAPID RESPONSE CALLED. PT TRANSFERRED BACK TO BED WITH ASSIST OF 4. NURSING STAFF LIFTED PT FROM COMMODE TO BED. PT RIGID IN NURSING STAFF'S ARMS. WHEN BACK IN BED, PT ABLE TO FOLLOW COMMANDS. STRENGTH EQUAL IN ALL EXTREMITIES. SPEECH MUMBLED AND WORD SALAD BUT HAS HISTORY OF THIS. LAB AND EKG TAKEN VIS RAPID RESPONSE. DR SOUTH NOTIFIED AT 1745. RN REQUESTED LAB, EKG, MEDS, NO NEW ORDERS GIVEN OVER PHONE. 1750 DR SOUTH IN ROOM. PT ABLE TO FOLLOW COMMANDS, DENIES SOA, OR CHEST PAIN. WHEN ASKED HOW PT FEELS, PT STATES "NOT TOO BAD". FILTROSE CRUSHER EQUAL STRENGTH IN ALL EXTREMITIES. SEE VITALS CHARTED. AT THIS TIME, PT CALM AND SLEEPING ON AND OFF. COMPLAINTS OF PAIN IN RIGHT HIP. WHEN ASKED HOW HE IS DOING PT STATES "ABOUT THE SAME." STRENGTH EQUAL IN ALL EXTREMITIES. VS STABLE. SEE VITALS CHARTED.
[2016-09-09] MEDS: TAMSULOSIN 0.4 MG CAPSULE PO SCH (19:54)
--- NOTE | 2016-09-09 20:19 | NUR ---
Pt started to become very agitated at 194. RN started gave a PRN quetiapine and slowly tried giving his other evening meds. He is trying to climb out of bed to go pay some bills.
[2016-09-09] MEDS: QUETIAPINE 25 MG TABLET PO SCH (20:30)
[2016-09-09] MEDS: DUTASTERIDE 0.5 MG CAPSULE PO SCH (20:38)
--- NOTE | 2016-09-09 20:53 | NUR ---
Pt is slightly less agitated at this time. Every now and then he closes his eyes. RN is unable to give him all of his evening meds. Pt is afraid this RN is trying to hurt him. Pt is offered the urinal. Pt states he does not need to use the urinal.
--- NOTE | 2016-09-09 21:35 | NUR ---
Pt has pulled off the dressing to his R. hip. Incision is well approximated and without drainage. Hip is redressed.
--- NOTE | 2016-09-09 22:08 | NUR ---
Pt stood to try to urinate, was unable to. Bladder scanned and showed 178ml of urine in the bladder.
--- NOTE | 2016-09-09 22:11 | NUR ---
Blood is in. No reaction noted. VSS
--- NOTE | 2016-09-09 23:17 | NUR ---
Pt is less agitated. Closes his eyes off and on but is not sleeping. Pt is less agitated when left alone.
[2016-09-10] VITALS (9 sets, daily range): BP systolic 117–173; BP diastolic 66–80; PULSE 85–106; RESP 18–24; TEMP 97.2–100.8; O2SAT 92–98
[2016-09-10] MEDS: NOZIN NASAL SWAB NS SCH ×3 (01:02→16:52)
--- NOTE | 2016-09-10 01:02 | NUR ---
Pt continues to be agitated, is bothered by the sprinkler system in the room, has things to do outside.
--- NOTE | 2016-09-10 01:13 | NUR ---
Pt pulled off his dressing again. RN replaced it. Pt is again very agitated with everything that is touching him.
--- NOTE | 2016-09-10 02:57 | NUR ---
Order received from Dr. Wooten to place valencia. Valencia placed with sterile technique using an 18g coude catheter. 200ml of very dark urine returned.
[2016-09-10] MEDS: ACETAMINOPHEN 500 MG TABLET PO SCH ×5 (03:05→22:25)
[2016-09-10] MEDS: QUETIAPINE 25 MG TABLET PO PRN ×3 (04:43→22:25)
--- NOTE | 2016-09-10 04:50 | NUR ---
Pt is hallucinating. Another PRN quetiapine is given.
[2016-09-10 05:18] LABS: BASOPHILS % (AUTO) 0.1 % (0-2); EOSINOPHILS % (AUTO) 0.3 % (0-4); HCT - HEMATOCRIT 22.6 % (41-53); HGB - HEMOGLOBIN 7.6 GM/DL (13.5-17.5); IMMATURE GRANULOCYTE # (AUTO) 0.03 T/MM3 (0.00-0.03); IMMATURE GRANULOCYTE % (AUTO) 0.2 % (0.0-0.5); LYMPHOCYTES # (AUTO) 1.2 T/MM3 (1-4.8); LYMPHOCYTES % (AUTO) 8.6 % (23-45); MEAN CORPUSCULAR HGB 31.9 UUG (26-34); MEAN CORPUSCULAR HGB CONC(MCHC 33.6 GM/DL (31-37); MEAN PLATELET VOLUME 11.5 UM3 (9.4-12.4); MONOCYTES # (AUTO) 1.3 T/MM3 (0-0.8); MONOCYTES % (AUTO) 9.8 % (0-9.0); NEUTROPHILS #(AUTO)-ABSOLUTE 10.9 T/MM3 (1.8-7.7); RED BLOOD COUNT 2.38 M/MM3 (4.50-5.90); WBC - WHITE BLOOD COUNT 13.5 T/MM3 (4.5-11.0)
[2016-09-10 05:25] LABS: ANION GAP 9 MEQ/L (5-15); BUN/CREATININE RATIO 21 RATIO (6-26); CHLORIDE 105 MEQ/L (98-107); CO2 - CARBON DIOXIDE 28 MEQ/L (22-30); CREATININE 1.3 MG/DL (0.8-1.5); GLOMERULAR FILTRATION RATE 52; GLUCOSE 138 MG/DL (75-110); POTASSIUM 3.9 MEQ/L (3.6-5); SODIUM 142 MEQ/L (134-144)
--- NOTE | 2016-09-10 06:24 | NUR ---
Order received for seroquel q8h, prn. Pt continues to have visual and audible hallucinations. Pt has not slept.
[2016-09-10] MEDS: CALCIUM 600mg + VIT D 400 TABLET PO SCH ×2 (08:50→20:46)
[2016-09-10] MEDS: ACETAMINOPHEN 325 MG TABLET PO PRN (08:51)
[2016-09-10] MEDS: SENNA + DOCUSATE TAB PO SCH ×2 (08:52→20:46)
[2016-09-10] MEDS: POLYETHYL.GLYCOL 3350 PACKET 17gm PO SCH ×2 (08:52→20:44)
--- NOTE | 2016-09-10 09:14 | NUR ---
CM UPDATE GIVEN TO S[facility]AF AT [facility]. PROGRESS NOTES ARE FAXED. CM ANTICIPATES POSSIBLE DC TUESDAY.
--- NOTE | 2016-09-10 09:15 | DI ---
Indication: ITS.REASON: leukocytosis PROCEDURE: CHEST 1 VIEW: Encounter: Initial Comparison: September 07, 2016 Findings: A couple areas of minimal linear atelectasis in the left base. Lung sanchez are otherwise clear. No pleural effusion or pneumothorax. Heart size, pulmonary vascularity and mediastinal contours are within normal limits. Impression: Stable chest without focal pneumonia. .
[2016-09-10] MEDS ORDERED: NORMAL SALINE 500 ML IV SCH ×2 (09:32→10:29)
--- NOTE | 2016-09-10 10:00 | NUR ---
INTAKE Fidencio was assisted with breakfast, mainly fluids (juice, mighty shake). Miralax was administered with the orange juice. Patient is very confused since return to bed after therapy. He manages to drink from a straw with cueing at times to suck on the straw instead of blow bubbles. He was offered a muffin and only opened his mouth enough for one bite, so the fluids were focused on. Oral care provided following the meal, HOB 30 degrees. Fidencio was unable to use the toothbrush did not connect to swish and spit the water offered afterwards, but rather swallowed the water. He has been reaching out toward staff again and constantly removing his covers, reaching for his catheter. Very restless and difficult to redirect.
[2016-09-10 10:13] LABS: BLOOD, URINE 3+ (NEGATIVE); COLOR,URINE YELLOW (YELLOW); LEUKOCYTE ESTERASE ,URINE 1+ (NEGATIVE); NITRITE,URINE NEGATIVE (NEGATIVE)
[2016-09-10 10:23] LABS: RBC,URINE 30-50 /HPF (0-3)
[2016-09-10 10:24] LABS: BACTERIA,URINE 4+ (NEGATIVE); COARSE GRANULAR CASTS,URINE 0-1 /LPF; HYALINE CASTS, URINE 0-1 /LPF; MUCUS,URINE PRESENT; SQUAMOUS EPITHELIAL CELL,UR NONE SEEN
--- NOTE | 2016-09-10 10:41 | PNPDOC ---
SHAHBAZ JAIME V OFFICE CLERK ASSISTANT 09/10/16 1032: Subjective Date DATE: 09/10/16 TIME: 10:24 Subjective Fidencio is seen this morning while sitting up on the edge of the bed. He continues to be confused and impulsive requiring one on one attention constantly. He was switched to schedule Seroquel overnight without relief. Nursing staff reports he did not sleep all night. When asked if he has any pain he states "no". He is comfortably breathing on room air without evidence of distress. Noted to be mildly hypertensive 173/80. This morning was up at 13.5. Objective Vital Signs Vital signs Vital Signs Date Time Temp Pulse Resp B/P Pulse Ox O2 Delivery O2 Flow Rate FiO2 09/10/16 07:52 97.2 106 173/80 96 Room Air 09/10/16 00:14 24 09/09/16 23:01 1.50 Height (Feet): 5 Height (Inches): 11.50 Weight (Kilograms): 84.700 General General Appearance: Alert, Confused, Cooperative, No Acute Distress Eyes (Brief) Eyes: FOUND: EOMI ENMT (Brief) ENMT: FOUND: mucosa moist, normal dentition, NOT FOUND: pharnyx erythema Neck (Brief) Neck: FOUND: midline, NOT FOUND: adenopathy, carotid bruits, tracheal deviation Respiratory (Brief) Respiratory: FOUND: clear all sanchez, equal bilaterally, NOT FOUND: wheezes Cardiovascular (Brief) Cardiac: FOUND: regular rate, regular rhythm, NOT FOUND: murmur, pedal edema Capillary Refill: <2 sec Abdomen (Brief) Abdominal: FOUND: BS normo active x4, soft, NOT FOUND: distended, tender Lymphatic (Brief) Lymphatic: NOT FOUND: adenopathy Musculoskeletal (Brief) Musculoskeletal: NOT FOUND: tenderness Integumentary (Brief) Integumentary: FOUND: dry, pink, warm Neurologic (Brief) Neurological: FOUND: cranial 2-12 intact Psychiatric (Brief) Psychiatric: FOUND: alert, attentive, normal affect, oriented Laboratory Laboratory Laboratory Tests 09/09/16 05:24 09/10/16 04:19 Laboratory Tests 09/09/16 05:24 09/09/16 15:01 09/10/16 00:18 09/10/16 04:19 Assessment & Plan Problems: (1) Hip fracture, right Status: Acute Qualifiers: Encounter type: initial encounter Fracture type: closed Qualified Codes: S72.001A - Fracture of unspecified part of neck of right femur, initial encounter for closed fracture (2) Fall Status: Acute Qualifiers: Encounter type: initial encounter Qualified Codes: W19.XXXA - Unspecified fall, initial encounter (3) Blood loss anemia Status: Acute (4) BPH (benign prostatic hyperplasia) Status: Chronic (5) Peripheral neuropathy Status: Chronic (6) Orthostatic hypotension Status: Chronic (7) Chronic back pain Status: Chronic (8) Chronic constipation Status: Chronic (9) Dementia Status: Chronic (10) History of AAA (abdominal aortic aneurysm) repair Status: Resolved (11) History of cerebellar hemorrhage Status: Resolved (12) Hypernatremia Status: Resolved Assessment & Plan: POA (13) Hypokalemia Status: Resolved Assessment & Plan: POA (14) Postoperative confusion Status: Acute (15) Vitamin D deficiency Status: Chronic Assessment & Plan: Dx with admission. (16) Thrombocytopenia Status: Acute Assessment & Plan: Not POA (17) Urinary tract infection Status: Acute Qualifiers: Urinary tract infection type: catheter-associated UTI Encounter type: subsequent encounter Plan/Intensity of Service 09/10/16 Walsh cath was removed last evening, however, patient had urinary retention and Walsh catheter was replaced. Given leukocytosis Chest xray was obtained to rule out pneumonia, and it was unremarkable. Repeat urinalysis was obtained this morning that is positive for ketones, blood, bilirubin, leukocyte esterase with 30-50 RBCs and 10-20 WBCs, 4 + bacteria. Start patient on Rocephin 1 gram IV daily. This acute infection may also be influencing encephalopathy. Hemoglobin today is decreased to 7.6. Will transfuse 1 unit of packed red cells. Continue to monitor. Thrombocytosis, platelet count 94. Continue with Seroquel to assist with behaviors. Patient is currently one-on- one with nursing staff. Scheduled Tylenol for pain control Will recheck CBC and BMP tomorrow morning to follow blood counts, renal function and electrolytes Will discuss further plan with attending, Dr Beard Code Status Do Not Resuscitate Hospital Course Summary Disclaimer The hospital course summary below is not to be considered part of the above Progress Note. Hospital Course Summary Admit patient to inpatient status under care of Dr. Beard for fall with right hip fracture. Auscultation is placed tube. Dr. Winkler for further orthopedic recommendations and treatment. Obtain the following basic medical screening on admission. CBC, CMP, INR, urinalysis, type and screen, EKG. Will of pain in one view chest x-ray, as well as pelvis with one view right hip Place Walsh catheter to dependent drainage IV lock. Will initiate IV fluids, normal saline at 100 ML per hour Patient may have regular diet this evening, however, will place patient nothing by mouth at midnight Dilaudid as needed for pain control and Zofran available as needed for nausea. Did discuss dementia and advanced directives with patient's daughter. She does verify patient is a do not resuscitate and this orders written. Will discuss further plan of care with attending, Dr. Beard. At time of discharge medical care will return to primary care provider with [facility], Dr. Master Watson 09/08/16 Planning for surgery today with Dr Emanuel for repair of right hip fracture Medically appears stable for surgery. Reviewed all labs, EKG and X-ray Will follow daily labs to monitor for post-op anemia. Hgb today is 10.2. Walsh cath to DD. Continue with Flomax and Avodart. Spoke with PCP Dr Master Watson this morning regarding post-op discharge plan. He recommends that patient will need a facility for rehab. 09/09/16 Patient has been having significant postoperative encephalopathy. Discontinued Ultram. Will give scheduled Tylenol for pain control. Will add Seroquel 25 milligrams at at bedtime and a PRN order for 25 mg as needed during the day Have asked nursing staff to bladder retraining patient and hopefully discontinue Walsh catheter later today as patient continues to pull on catheter. Reviewed laboratory studies. Noted patient to have thrombocytopenia, platelets decreased to 63 today. Lovenox placed on hold. Hemoglobin 8.4 will continue to follow. Wean off oxygen as able. Spoke with and son-in-law regarding acute encephalopathy and behaviors. Discharge plan is to go to [facility] for skilled rehabilitation as patient is part of [facility]. Need to recheck CBC and BMP tomorrow morning to follow blood counts, renal function and electrolytes. 09/10/16 Walsh cath was removed last evening, however, patient had urinary retention and Walsh catheter was replaced. Given leukocytosis Chest xray was obtained to rule out pneumonia, and it was unremarkable. Repeat urinalysis was obtained this morning that is positive for ketones, blood, bilirubin, leukocyte esterase with 30-50 RBCs and 10-20 WBCs, 4 + bacteria. Start patient on Rocephin 1 gram IV daily. This acute infection may also be influencing encephalopathy. Hemoglobin today is decreased to 7.6. Will transfuse 1 unit of packed red cells. Continue to monitor. Thrombocytosis, platelet count 94. Continue with Seroquel to assist with behaviors. Patient is currently one-on- one with nursing staff. Scheduled Tylenol for pain control Will recheck CBC and BMP tomorrow morning to follow blood counts, renal function and electrolytes Will discuss further plan with attending, TANK Mcintosh MD 09/10/16 1643: Assessment & Plan Problems: (1) Hip fracture, right Status: Acute Qualifiers: Encounter type: initial encounter Fracture type: closed Qualified Codes: S72.001A - Fracture of unspecified part of neck of right femur, initial encounter for closed fracture (2) Fall Status: Acute Qualifiers: Encounter type: initial encounter Qualified Codes: W19.XXXA - Unspecified fall, initial encounter (3) Blood loss anemia Status: Acute Assessment & Plan: 09/09: Transfusion 1 unit pRBC 09/10: Transfusion 1 unit pRBC (4) BPH (benign prostatic hyperplasia) Status: Chronic (5) Peripheral neuropathy Status: Chronic (6) Orthostatic hypotension Status: Chronic (7) Chronic back pain Status: Chronic (8) Chronic constipation Status: Chronic (9) Dementia Status: Chronic (10) History of AAA (abdominal aortic aneurysm) repair Status: Resolved (11) History of cerebellar hemorrhage Status: Resolved (12) Hypernatremia Status: Resolved Assessment & Plan: POA (13) Hypokalemia Status: Resolved Assessment & Plan: POA (14) Postoperative confusion Status: Acute (15) Vitamin D deficiency Status: Chronic Assessment & Plan: Dx with admission. (16) Thrombocytopenia Status: Acute Assessment & Plan: Not POA (17) Urinary tract infection Status: Acute Qualifiers: Urinary tract infection type: catheter-associated UTI Encounter type: subsequent encounter Assessment & Plan: NOT POA Plan/Intensity of Service Have independently interviewed and examined pt. Chart reviewed. Case discussed with CM and my OFFICE CLERK ASSISTANT. Care plan developed with my supervision; agree with above. Restless today. Hard to redirect. Minimal discomfort to right hip. Lungs: decreased, no distress CV: regular EXT: swelling to right hip area - suspect due to local blood loss. Wound dry and not bleeding. MSE: restless, agitated. Plan: Rocephin for urinary coverage. Walsh replaced due to retention. Transfuse 1 unit pRBC due to decreased hemoglobin. Lovenox on hold due to thrombocytopenia - would also hold due to significant anemia and need for transfusions. Seroquel to help agitation. Redirect as able. Monitor blood counts. Continue with supportive post op care. DVT Prophylaxis: SCD'S SHAHBAZ JAIME APRN September 10, 2016 10:32 TANK BEARD MD September 10, 2016 16:43
[2016-09-10] MEDS: CEFTRIAXONE 1 G in NORMAL SALINE 100 ML IV SCH (10:53)
--- NOTE | 2016-09-10 11:35 | NUR ---
FAMILY, FRIENDS Aury has arrived, and Fidencio has been visited by a good friend Bradley and his . This has helped a bit to ground him, however he remains very restless. Discussed order for transfusion with Aury and she requests that we give the unit as ordered.
--- NOTE | 2016-09-10 11:45 | NUR ---
UPDATE TO PROVIDER Sara FAJARDO had rounded this morning and is now updated as to patient's status. Reported positive screen for severe sepsis. Fluid boluses are not being ordered at this time. Reported that first dose of Rocephin is in and that blood transfusion is about to start. Reported extreme restlessness and confusion over the last hour and a half and that the patient has been unable to calm down and has not slept last night. Medications discussed. Ativan will be ordered by the provider and given just prior to transfusion.
[2016-09-10] MEDS: LORAZEPAM 2 MG/ML INJECTION IV PRN ×3 (11:47→20:41)
--- NOTE | 2016-09-10 11:49 | NUR ---
CM CM IN TO VISIT WITH PT AND SPOUSE. THEY ARE MADE AWARE THAT CM HAS BEEN IN CONTACT WITH [facility] AND THAT THEY HAVE CONTACTED [facility] ABOUT POSSIBLE SNF PLACEMENT WHEN STABLE FOR DC.
--- NOTE | 2016-09-10 12:12 | NUR ---
TRANSFUSION Transfusion of PRBCs is underway. First fifteen minutes complete without signs or symptoms of a transfusion reaction. Rate increased from 60 mls/hr to 120 mls/hr. Patient is somewhat calmer after having received a dose of Ativan by slow IV push prior to beginning the blood.
--- NOTE | 2016-09-10 13:14 | NUR ---
CARE TRANSITION Care transitioned to Kathleen RN over the last 30 minutes as this RN is called back to CCU for an admission. Report has been given to Kathleen, who is also already familiar with this patient. Report included progress regarding blood transfusion which was started at 1155 this morning.
--- NOTE | 2016-09-10 13:15 | NUR ---
REST Patient is close to sleep at this time. Visitors have cleared the room in order to allow him to rest. SCDs are on and patient was recently repositioned. Ice in place to the right hip.
--- NOTE | 2016-09-10 15:04 | NUR ---
CARE ASSUMING CARE OF PT.
--- NOTE | 2016-09-10 18:23 | NUR ---
SUMMARY PT HAS BEEN ABLE TO REST FOR BRIEF MOMENTS AFTER GIVEN ATIVAN IV AT 1640. PULLING AT CATHETER, BED LINENS AND PEOPLE AT OTHER TIMES. DENIES PAIN IN RT HIP. WILLING TO HAVE ICE PACK IN PLACE. ASKED TO BE READ TO AT ONE POINT. HAD 20% OF EVENING MEAL. NO BLEEDING OR DRAINAGE NOTED ON MEPILEX.
--- NOTE | 2016-09-10 20:41 | NUR ---
PRN ATIVAN GIVEN FOR PT EXPERIENCING CONTINUED RESTLESSNESS. PT IS HYPERVERBAL BUT SPEECH IS GARBLED, RAPID, AND MOSTLY INCOMPREHENSIBLE. PT WAS NOTED TO YAWN A COUPLE OF TIMES AND CLOSE EYES BUT STARTLES SELF BACK TO ALERTNESS BEFORE ANY SLEEP IS ACHIEVED. PT HAS FREQUENT EPISODES OF UNCONTROLLED TWITCHING OF THE UPPER EXTREMITIES. RESTING IN BED, THIS RN AT BEDSIDE.
[2016-09-10] MEDS: QUETIAPINE 25 MG TABLET PO SCH (20:46)
[2016-09-10] MEDS: TAMSULOSIN 0.4 MG CAPSULE PO SCH (20:46)
[2016-09-10] MEDS: DUTASTERIDE 0.5 MG CAPSULE PO SCH (20:46)
--- NOTE | 2016-09-10 20:50 | NUR ---
HS MEDS GIVEN AT THIS TIME PT APPEARS TO BE ATTEMPTING TO FALL ASLEEP. PT NOTED TO BE YAWNING MORE FREQUENTLY, EYES CLOSED FOR LONGER PERIODS OF TIME, BREATHING MORE RELAXED (RR FROM 24 TO 18, DEEPER BREATHING), LESS TALKATIVE.
--- NOTE | 2016-09-10 22:49 | NUR ---
PRN SEROQUEL GIVEN AT THIS TIME FOR AGITATION. PT IS ANGRY, TELLING STAFF TO SHUT UP, AND ATTEMPTING TO HIT STAFF. PT IS AWAKE AND ALERT ONLY TO PERSON. SEEMS TO BE EXPERIENCING HALLUCINATIONS, STARRING TOWARDS AREAS OF THE ROOM WHERE NO PEOPLE ARE, TALKING AND LAUGHING, POINTING AND GRABBING AT AIR. PT APPEARED TO HAVE RESTED FOR APPROX 20MINS AFTER HS MEDS ADMINISTERED BEFORE BECOMING MORE ALERT AND AGITATED. PT ALSO REQUIRED A NEW IVL PREVIOUS IVL AD INFILTRATED, DID RESTART IVL [id number] AFTER THIS DOSE OF SEROQUEL W/O DIFFICULTY, 3 STAFF MEMBERS AT BEDSIDE TO FACILITATE PROCEDURE, PT TOLERATED WELL.
[2016-09-11] MEDS: NOZIN NASAL SWAB NS SCH ×3 (00:35→17:30)
[2016-09-11] MEDS: LORAZEPAM 2 MG/ML INJECTION IV PRN (00:37)
--- NOTE | 2016-09-11 00:37 | NUR ---
PRN ATIVAN GIVEN FOR SEVERE RESTLESSNESS/ANXIETY AFTER PT REQUIRED BED CHANGE FOR INCONTINENT BOWEL MOVEMENT. PT HAS CONTINUED TO BE AWAKE/ALERT, SEE PREVIOUS NOTES. DURING AND AFTER BED CHANGE PT BECAME MORE MUCH MORE ANXIOUS AND QUITE UPSET. PT WAS ALSO NOTED TO BE QUITE AGITATED, ATTEMPTING TO HIT/BITE STAFF.
[2016-09-11] MEDS: HALOPERIDOL 5 MG/ML INJECTION IV PRN ×2 (02:49→13:45)
[2016-09-11] MEDS: ACETAMINOPHEN 500 MG TABLET PO SCH ×6 (03:48→23:45)
[2016-09-11 03:53] VITALS: BP 161/71; PULSE 95; RESP 24; TEMP 98.4; O2SAT 93
--- NOTE | 2016-09-11 04:33 | NUR ---
PRN HALDOL GIVEN AT [address] ONOFRE FOR CONTINUED RESTLESSNESS, ANXIETY, HALLUCINATIONS, AGITATIONS, INSOMNIA. PT IS CONSTANTLY PULLING AT LINENS, REACHING OUT FOR THINGS THAT ARE NOT THERE, AND TALKING/LAUGHING WITH PEOPLE WHO ARE NOT THERE. RN HAD PREVIOUSLY TRIED, PRN ATIVAN, SEROQUEL, DECREASING STIMULI, HEATHER TYLENOL, REPOSITIONING. PT ALSO HAS REQUIRED 1:1 MONITORING. PT DID SEEM SLEEPY HOWEVER EVERY TIME PT APPEARED TO BE FALLING ASLEEP HE WOULD EXPERIENCE DRAMATIC, INVOLUNTARY JERKS THAT STARTLED HIM AWAKE, AFTER THESE EPISODES OF JERKING PT ALSO SEEMED FEARFUL OF FALLING, AT TIMES EVEN STATED "CATCH ME, CATCH ME!" AT THIS TIME PT APPEARS TO BE SLEEPING, HAS BEEN RESTING PEACEFULLY W/O JERKING, MOVING, TALKING FOR APPROX 10-15MINS. NO S/S OF ADVERSE REACTIONS TO HALDOL HAVE BEEN NOTED.
--- NOTE | 2016-09-11 06:32 | NUR ---
SWALLOW PT DID HAVE SOME DIFFICULTY TAKING PILLS LAST NIGHT, POCKETED HS PILLS, WAS NOTED TO HAVE DIFFICULTY SWALLOWING AFTER DRINKING WITH STRAW. DID CRUSH MEDS AND ADMIN WITH PUDDING OR APPLESAUCE FOR THE REMAINDER OF THE SHIFT.
[2016-09-11 07:56] LABS: BASOPHILS % (AUTO) 0.1 % (0-2); EOSINOPHILS # (AUTO) 0.2 T/MM3 (0-0.5); EOSINOPHILS % (AUTO) 1.6 % (0-4); HCT - HEMATOCRIT 23.5 % (41-53); HGB - HEMOGLOBIN 7.8 GM/DL (13.5-17.5); IMMATURE GRANULOCYTE # (AUTO) 0.03 T/MM3 (0.00-0.03); IMMATURE GRANULOCYTE % (AUTO) 0.3 % (0.0-0.5); LYMPHOCYTES # (AUTO) 0.8 T/MM3 (1-4.8); LYMPHOCYTES % (AUTO) 7.3 % (23-45); MEAN CORPUSCULAR HGB 31.2 UUG (26-34); MEAN CORPUSCULAR HGB CONC(MCHC 33.2 GM/DL (31-37); MEAN PLATELET VOLUME 11.2 UM3 (9.4-12.4); MONOCYTES # (AUTO) 0.7 T/MM3 (0-0.8); MONOCYTES % (AUTO) 6.7 % (0-9.0); NEUTROPHILS #(AUTO)-ABSOLUTE 8.7 T/MM3 (1.8-7.7); WBC - WHITE BLOOD COUNT 10.3 T/MM3 (4.5-11.0)
[2016-09-11 08:03] LABS: ANION GAP 9 MEQ/L (5-15); BUN/CREATININE RATIO 25 RATIO (6-26); CHLORIDE 106 MEQ/L (98-107); CO2 - CARBON DIOXIDE 28 MEQ/L (22-30); CREATININE 1.1 MG/DL (0.8-1.5); GLOMERULAR FILTRATION RATE 63; GLUCOSE 110 MG/DL (75-110); SODIUM 143 MEQ/L (134-144)
[2016-09-11 08:04] LABS: ALBUMIN/GLOBULIN RATIO 1.3 RATIO (1.1-2.2); ALKALINE PHOSPHATASE 63 U/L (38-126); ALT (SGPT) 46 U/L (21-72); AST (SGOT) 51 U/L (17-59); MAGNESIUM 1.9 MG/DL (1.6-2.3); TOTAL PROTEIN 5.4 G/DL (6.3-8.2)
[2016-09-11] MEDS: POLYETHYL.GLYCOL 3350 PACKET 17gm PO SCH ×2 (09:00→21:00)
[2016-09-11] MEDS: SENNA + DOCUSATE TAB PO SCH ×2 (09:00→21:00)
[2016-09-11 10:50] VITALS: BP 167/78; PULSE 90; PULSE 95; RESP 16; RESP 24; TEMP 99.2; O2SAT 94
[2016-09-11] MEDS: CEFTRIAXONE 1 G in NORMAL SALINE 100 ML IV SCH (10:58)
[2016-09-11] MEDS: CALCIUM 600mg + VIT D 400 TABLET PO SCH ×2 (10:58→21:00)
--- NOTE | 2016-09-11 12:19 | PNPDOC ---
SHAHBAZ JAIME V CLINICAL TRIAL DATA MANAGER 09/11/16 1218: Subjective Date DATE: 09/11/16 TIME: 12:13 Subjective Bill is seen today in follow up. Overall, appears to be more relaxed today and last aggressive with behaviors. It is really reported by nursing staff. The patient was very restless, anxious with hallucinations most of the night, pulling out his lines, requiring one-on-one attention. Is reported that he also had some involuntary jerking that would awake him, and he appeared to be falling and would scream out "catch me". Did tolerate IV Haldol and Ativan as well as oral Seroquel. Objective Vital Signs Vital signs Vital Signs Date Time Temp Pulse Resp B/P Pulse Ox O2 Delivery O2 Flow Rate FiO2 09/11/16 10:50 95 24 09/11/16 10:50 99.2 167/78 94 Room Air 09/09/16 23:01 1.50 Height (Feet): 5 Height (Inches): 11.50 Weight (Kilograms): 84.700 General General Appearance: Alert, Confused, Cooperative, No Acute Distress Eyes (Brief) Eyes: FOUND: EOMI ENMT (Brief) ENMT: FOUND: mucosa moist, normal dentition, NOT FOUND: pharnyx erythema Neck (Brief) Neck: FOUND: midline, NOT FOUND: adenopathy, carotid bruits, tracheal deviation Respiratory (Brief) Respiratory: FOUND: clear all sanchez, equal bilaterally, NOT FOUND: wheezes Cardiovascular (Brief) Cardiac: FOUND: regular rate, regular rhythm, NOT FOUND: murmur, pedal edema Capillary Refill: <2 sec Abdomen (Brief) Abdominal: FOUND: BS normo active x4, soft, NOT FOUND: distended, tender Lymphatic (Brief) Lymphatic: NOT FOUND: adenopathy Musculoskeletal (Brief) Musculoskeletal: NOT FOUND: tenderness Integumentary (Brief) Integumentary: FOUND: dry, pink, warm Neurologic (Brief) Neurological: FOUND: cranial 2-12 intact Psychiatric (Brief) Psychiatric: FOUND: alert, attentive, normal affect, oriented Laboratory Laboratory Laboratory Tests 09/10/16 04:19 09/11/16 07:08 Laboratory Tests 09/09/16 15:01 09/10/16 00:18 09/10/16 04:19 09/10/16 14:37 09/11/16 07:08 Microbiology Microbiology Microbiology Date/Time Source Procedure Growth Status 09/10/16 10:25 Urine, Walsh Indwelling Urine Culture - Preliminary NO GROWTH AFTER 24 HOURS Resulted Assessment & Plan Problems: (1) Hip fracture, right Status: Acute Qualifiers: Encounter type: initial encounter Fracture type: closed Qualified Codes: S72.001A - Fracture of unspecified part of neck of right femur, initial encounter for closed fracture (2) Fall Status: Acute Qualifiers: Encounter type: initial encounter Qualified Codes: W19.XXXA - Unspecified fall, initial encounter (3) Blood loss anemia Status: Acute Assessment & Plan: 09/09: Transfusion 1 unit pRBC 09/10: Transfusion 1 unit pRBC (4) BPH (benign prostatic hyperplasia) Status: Chronic (5) Peripheral neuropathy Status: Chronic (6) Orthostatic hypotension Status: Chronic (7) Chronic back pain Status: Chronic (8) Chronic constipation Status: Chronic (9) Dementia Status: Chronic (10) History of AAA (abdominal aortic aneurysm) repair Status: Resolved (11) History of cerebellar hemorrhage Status: Resolved (12) Hypernatremia Status: Resolved Assessment & Plan: POA (13) Hypokalemia Status: Resolved Assessment & Plan: POA (14) Postoperative confusion Status: Acute (15) Vitamin D deficiency Status: Chronic Assessment & Plan: Dx with admission. (16) Thrombocytopenia Status: Acute Assessment & Plan: Not POA (17) Urinary tract infection Status: Acute Qualifiers: Urinary tract infection type: catheter-associated UTI Encounter type: subsequent encounter Assessment & Plan: NOT POA Plan/Intensity of Service 09/11/16 Continue with Rocephin IV daily for antimicrobial coverage of urinary tract infection. Postoperative Lovenox continues to be on hold given thrombocytopenia. Platelet today 94. Hemoglobin did trend down today to 7.8. Following blood transfusion yesterday. He may require another unit if hemoglobin continues to drop. Continues to require multiple medications to manage behaviors including oral Seroquel as well as as needed Ativan and Haldol. Recheck CBC and BMP tomorrow morning to follow blood counts, renal function and electrolytes Code Status Do Not Resuscitate Hospital Course Summary Disclaimer The hospital course summary below is not to be considered part of the above Progress Note. Hospital Course Summary Admit patient to inpatient status under care of Dr. Beard for fall with right hip fracture. Auscultation is placed tube. Dr. Winkler for further orthopedic recommendations and treatment. Obtain the following basic medical screening on admission. CBC, CMP, INR, urinalysis, type and screen, EKG. Will of pain in one view chest x-ray, as well as pelvis with one view right hip Place Walsh catheter to dependent drainage IV lock. Will initiate IV fluids, normal saline at 100 ML per hour Patient may have regular diet this evening, however, will place patient nothing by mouth at midnight Dilaudid as needed for pain control and Zofran available as needed for nausea. Did discuss dementia and advanced directives with patient's daughter. She does verify patient is a do not resuscitate and this orders written. Will discuss further plan of care with attending, Dr. Beard. At time of discharge medical care will return to primary care provider with the pace program, Dr. Master Watson 09/08/16 Planning for surgery today with Dr Emanuel for repair of right hip fracture Medically appears stable for surgery. Reviewed all labs, EKG and X-ray Will follow daily labs to monitor for post-op anemia. Hgb today is 10.2. Walsh cath to DD. Continue with Flomax and Avodart. Spoke with PCP Dr Master Watson this morning regarding post-op discharge plan. He recommends that patient will need a facility for rehab. 09/09/16 Patient has been having significant postoperative encephalopathy. Discontinued Ultram. Will give scheduled Tylenol for pain control. Will add Seroquel 25 milligrams at at bedtime and a PRN order for 25 mg as needed during the day Have asked nursing staff to bladder retraining patient and hopefully discontinue Walsh catheter later today as patient continues to pull on catheter. Reviewed laboratory studies. Noted patient to have thrombocytopenia, platelets decreased to 63 today. Lovenox placed on hold. Hemoglobin 8.4 will continue to follow. Wean off oxygen as able. Spoke with and son-in-law regarding acute encephalopathy and behaviors. Discharge plan is to go to [facility] for skilled rehabilitation as patient is [facility]. Need to recheck CBC and BMP tomorrow morning to follow blood counts, renal function and electrolytes. 09/10/16 Walsh cath was removed last evening, however, patient had urinary retention and Walsh catheter was replaced. Given leukocytosis Chest xray was obtained to rule out pneumonia, and it was unremarkable. Repeat urinalysis was obtained this morning that is positive for ketones, blood, bilirubin, leukocyte esterase with 30-50 RBCs and 10-20 WBCs, 4 + bacteria. Start patient on Rocephin 1 gram IV daily. This acute infection may also be influencing encephalopathy. Hemoglobin today is decreased to 7.6. Will transfuse 1 unit of packed red cells. Continue to monitor. Thrombocytosis, platelet count 94. Continue with Seroquel to assist with behaviors. Patient is currently one-on- one with nursing staff. Scheduled Tylenol for pain control Will recheck CBC and BMP tomorrow morning to follow blood counts, renal function and electrolytes Will discuss further plan with attending, Dr Beard 09/11/16 Continue with Rocephin IV daily for antimicrobial coverage of urinary tract infection. Postoperative Lovenox continues to be on hold given thrombocytopenia. Platelet today 94. Hemoglobin did trend down today to 7.8. Following blood transfusion yesterday. He may require another unit if hemoglobin continues to drop. Continues to require multiple medications to manage behaviors including oral Seroquel as well as as needed Ativan and Haldol. Recheck CBC and BMP tomorrow morning to follow blood counts, renal function and electrolytes POLLY PHILLIPS MD 09/11/16 1613: Assessment & Plan Assessment 09/11/2016-I reviewed this chart, the patient history, and the CLINICAL TRIAL DATA MANAGER's/PA's documented findings as above. We discussed and formulated the assessment and plan as above with the additions below.-Dr. Phillips The patient is seen in his room accompanied by a HOMOGENIZER OPERATOR. The patient is confused and not even oriented to self at this point. He is not eating or drinking well. He recently received 4 mg of IV Haldol. I will decrease the dosage of his when necessary Haldol. On review of home medications, he was taking Klonopin, gabapentin, fludrocortisone, and medications for constipation and BPH. On exam the patient is alert and we will try to answer questions but is very confused.HEENT reveals sclerae to be anicteric and oropharynx is moist. Neck is supple. Chest is clear to auscultation. Cardiovascular reveals a regular rate and rhythm with an occasional ectopic beat. Abdomen is soft and nontender with positive bowel sounds. Extremities are free of edema. Impression Right hip fracture status post repair 09/08/2016 Vascular dementia Encephalopathy Anemia requiring transfusion on 09/09/2016 and 09/10/2016 Thrombocytopenia-Lovenox discontinued Urinary retention and Walsh replaced UTI with negative cultures so far-Rocephin started Orthostatic hypotension Hypernatremia-resolved Hypokalemia-resolved Plan Recheck CBC and basic metabolic profile tomorrow Consider restarting aspirin soon if hemoglobin is stable and okay with the orthopedic service Restart his usual Klonopin and discontinue Ativan Decrease Haldol from 4 mg IV every every 6 hours when necessary to 1 mg IV every 6 hours when necessary Consult psychiatry regarding encephalopathy Restart gabapentin Restart fludrocortisone for orthostatic hypotension May need to restart Norvasc if blood pressure is elevated Greater than 35 minutes of time spent seeing and evaluating the patient, reviewing chart and determining care plan DVT Prophylaxis: SCD'S SHAHBAZ JAIME APRN September 11, 2016 12:18 POLLY PHILLIPS MD September 11, 2016 16:13
--- NOTE | 2016-09-11 12:20 | NUR ---
PT NOTE: Attempted to see pt x3. Per NSG, pt unable to get sleep for last 3 days and is on bed rest for orthostatic hypotension. Pt sleeping first attempt, pt getting IV placement 2nd attempt, pt unable to stay awake for ther ex on third attempt. Will follow up per POC. Call [phone] with questions.
--- NOTE | 2016-09-11 12:28 | NUR ---
IVL PLACE NEW 20GA TO RIGHT AC PER NURSE REQUEST. ONE ATTEMPT.
[2016-09-11] MEDS: QUETIAPINE 25 MG TABLET PO PRN ×2 (13:36→13:48)
[2016-09-11 16:00] VITALS: BP 171/95; PULSE 103; RESP 18; TEMP 99.9; O2SAT 94
[2016-09-11] MEDS ORDERED: HALOPERIDOL 5 MG/ML INJECTION IV PRN (16:00)
[2016-09-11] MEDS: FLUDROCORTISONE 0.1 MG TABLET PO SCH (17:30)
--- NOTE | 2016-09-11 18:44 | NUR ---
SUMMARY ALLOWED PT TO SLEEP UNTIL 1050 THIS MORNING R/T LACK OF SLEEP PT HAS EXPERIENCED FOR SOME TIME NOW. PT BECAME PHYSICALLY AGGRESSIVE ONCE HE WAS AWAKE. GIVEN HALDOL BY Camilo GARBER RN, THIS AFTERNOON. IS FINALLY SETTLING DOWN AND TALKING QUIETLY. NOT EATING WELL TODAY (SEE INTAKE DOCUMENTATION). NO DRAINAGE NOTED ON MEPILEX.
[2016-09-11 20:13] VITALS: BP 178/83; PULSE 89; RESP 20; TEMP 100.4; O2SAT 94
[2016-09-11] MEDS: ACETAMINOPHEN 325 MG TABLET PO PRN ×2 (21:34→21:53)
[2016-09-11] MEDS: QUETIAPINE 25 MG TABLET PO SCH (21:49)
[2016-09-11] MEDS: CLONAZEPAM 0.5 MG TABLET PO SCH (21:49)
[2016-09-11] MEDS: GABAPENTIN 300 MG CAPSULE PO SCH (21:52)
[2016-09-11] MEDS: TAMSULOSIN 0.4 MG CAPSULE PO SCH (21:52)
[2016-09-11] MEDS: DUTASTERIDE 0.5 MG CAPSULE PO SCH (21:52)
[2016-09-11 23:56] VITALS: BP 143/69; PULSE 105; RESP 22; TEMP 97.1; O2SAT 94
[2016-09-12] MEDS: NOZIN NASAL SWAB NS SCH ×3 (03:51→17:01)
[2016-09-12 04:25] VITALS: BP 166/87; PULSE 93; RESP 18; TEMP 99.7; O2SAT 93
--- NOTE | 2016-09-12 05:26 | NUR ---
SHIFT SUMMARY PATIENT IS ALERT AND ORIENTED TO SELF ONLY THIS SHIFT. VITAL SIGNS HAVE BEEN STABLE ON ROOM AIR. PATIENT HAS MAINTAINED BEDREST THIS SHIFT. PATIENT CONTINUES TO BE CONFUSED, BELLIGERENT, AND AGGRESSIVE AT TIMES. PATIENT DID TAKE THE MAJORITY OF HIS PO MEDS THIS SHIFT. MEDS WERE TAKEN WHOLE WITH SIPS OF WATER A FEW AT A TIME. SITTER HAS BEEN AT BEDSIDE ALL SHIFT. PATIENT HAS REPORTED NO PAIN OR NAUSEA WHEN QUESTIONED. PATIENT HAD ONE INCONTINENT BM THIS SHIFT. WILL CONTINUE TO MONITOR.
[2016-09-12] MEDS: ACETAMINOPHEN 500 MG TABLET PO SCH ×4 (05:44→21:19)
[2016-09-12 08:00] VITALS: BP 164/81; PULSE 87; RESP 20; TEMP 96.9; O2SAT 94
[2016-09-12 08:08] LABS: BASOPHILS % (AUTO) 0.2 % (0-2); EOSINOPHILS # (AUTO) 0.1 T/MM3 (0-0.5); EOSINOPHILS % (AUTO) 1.2 % (0-4); HCT - HEMATOCRIT 22.8 % (41-53); HGB - HEMOGLOBIN 7.8 GM/DL (13.5-17.5); IMMATURE GRANULOCYTE # (AUTO) 0.04 T/MM3 (0.00-0.03); IMMATURE GRANULOCYTE % (AUTO) 0.5 % (0.0-0.5); LYMPHOCYTES # (AUTO) 0.7 T/MM3 (1-4.8); LYMPHOCYTES % (AUTO) 8.1 % (23-45); MEAN CORPUSCULAR HGB CONC(MCHC 34.2 GM/DL (31-37); MEAN CORPUSCULAR VOLUME 93.4 UM3 (80-100); MEAN PLATELET VOLUME 10.7 UM3 (9.4-12.4); MONOCYTES # (AUTO) 0.7 T/MM3 (0-0.8); MONOCYTES % (AUTO) 8.6 % (0-9.0); NEUTROPHILS #(AUTO)-ABSOLUTE 6.9 T/MM3 (1.8-7.7); NEUTROPHILS % (AUTO) 81.4 % (33-66); RED BLOOD COUNT 2.44 M/MM3 (4.50-5.90); WBC - WHITE BLOOD COUNT 8.4 T/MM3 (4.5-11.0)
[2016-09-12 08:19] LABS: ANION GAP 11 MEQ/L (5-15); BUN/CREATININE RATIO 27 RATIO (6-26); CALCIUM 8.7 MG/DL (8.4-10.2); CHLORIDE 106 MEQ/L (98-107); CO2 - CARBON DIOXIDE 27 MEQ/L (22-30); CREATININE 0.9 MG/DL (0.8-1.5); GLOMERULAR FILTRATION RATE 80; GLUCOSE 111 MG/DL (75-110); POTASSIUM 3.4 MEQ/L (3.6-5); SODIUM 144 MEQ/L (134-144)
[2016-09-12] MEDS: POLYETHYL.GLYCOL 3350 PACKET 17gm PO SCH ×2 (09:13→20:27)
[2016-09-12] MEDS: SENNA + DOCUSATE TAB PO SCH ×2 (09:13→20:27)
[2016-09-12] MEDS: GABAPENTIN 300 MG CAPSULE PO SCH ×2 (09:37→20:30)
[2016-09-12] MEDS: VITAMIN B COMP + C TABLET PO SCH (09:37)
[2016-09-12] MEDS: CLONAZEPAM 0.5 MG TABLET PO SCH ×4 (09:37→20:26)
[2016-09-12] MEDS: NORMAL SALINE 1,000 ML IV PRN (09:37)
[2016-09-12] MEDS: CALCIUM 600mg + VIT D 400 TABLET PO SCH ×2 (09:37→21:17)
[2016-09-12] MEDS: FLUDROCORTISONE 0.1 MG TABLET PO SCH (09:37)
[2016-09-12] MEDS: CEFTRIAXONE 1 G in NORMAL SALINE 100 ML IV SCH (09:37)
[2016-09-12] MEDS ORDERED: POTASSIUM CHLORIDE 20 MEQ TABLET PO ONE (11:15)
[2016-09-12 11:26] VITALS: BP 147/66; PULSE 81; RESP 16; TEMP 98.3; O2SAT 94
--- NOTE | 2016-09-12 11:26 | PNPDOC ---
JOSE TOBIN MOTORCOACH DRIVER 09/12/16 1113: Subjective Date DATE: 09/12/16 TIME: 11:09 Subjective Fidencio remains very confused but is calmer. He is requiring a sitter. He was unable to tell me his name, and some of his statements were very mumbled and I wasn't able to understand him. He did, however, clearly ask me where I was from , and then proceeded to tell me a story about his brother being in [place] ( where I told him I was from). He is having liquid bowel movements. Objective Vital Signs Vital signs Vital Signs Date Time Temp Pulse Resp B/P Pulse Ox O2 Delivery O2 Flow Rate FiO2 09/12/16 08:00 96.9 87 20 164/81 94 Room Air 09/09/16 23:01 1.50 Height (Feet): 5 Height (Inches): 11.50 Weight (Kilograms): 83.400 General General Appearance: Alert, Well Nourished, Well Developed, Confused, No Acute Distress Eyes (Brief) Eyes: FOUND: PERRL, NOT FOUND: scleral icterus ENMT (Brief) ENMT: FOUND: mucosa moist, NOT FOUND: pharnyx erythema Respiratory (Brief) Respiratory: FOUND: clear all sanchez, equal bilaterally Cardiovascular (Brief) Cardiac: FOUND: regular rate, regular rhythm Abdomen (Brief) Abdominal: FOUND: BS normo active x4, soft, NOT FOUND: distended, tender Extremities (Brief) Extremity : Extremity Finding: NOT FOUND: edema Musculoskeletal (Brief) Musculoskeletal: NOT FOUND: deformity Integumentary (Brief) Integumentary: FOUND: dry, warm Psychiatric (Brief) Psychiatric: FOUND: alert Laboratory Laboratory Laboratory Tests 09/11/16 07:08 09/12/16 07:55 Laboratory Tests 09/10/16 14:37 09/11/16 07:08 09/12/16 07:55 Microbiology Microbiology Microbiology Date/Time Source Procedure Growth Status 09/10/16 10:25 Urine, Walsh Indwelling Urine Culture - Final NO GROWTH AFTER 48 HOURS Complete Assessment & Plan Problems: (1) Encephalopathy Status: Acute (2) Hypokalemia Status: Acute Assessment & Plan: POA (3) Urinary tract infection Status: Acute Qualifiers: Urinary tract infection type: catheter-associated UTI Encounter type: subsequent encounter Assessment & Plan: NOT POA (4) Thrombocytopenia Status: Acute Assessment & Plan: Not POA (5) Hip fracture, right Status: Acute Qualifiers: Encounter type: initial encounter Fracture type: closed Qualified Codes: S72.001A - Fracture of unspecified part of neck of right femur, initial encounter for closed fracture (6) Fall Status: Acute Qualifiers: Encounter type: initial encounter Qualified Codes: W19.XXXA - Unspecified fall, initial encounter (7) Blood loss anemia Status: Acute Assessment & Plan: 09/09: Transfusion 1 unit pRBC 09/10: Transfusion 1 unit pRBC (8) BPH (benign prostatic hyperplasia) Status: Chronic (9) Peripheral neuropathy Status: Chronic (10) Orthostatic hypotension Status: Chronic (11) Chronic back pain Status: Chronic (12) Chronic constipation Status: Chronic (13) Dementia Status: Chronic (14) History of AAA (abdominal aortic aneurysm) repair Status: Resolved (15) History of cerebellar hemorrhage Status: Resolved (16) Hypernatremia Status: Resolved Assessment & Plan: POA (17) Vitamin D deficiency Status: Chronic Assessment & Plan: Dx with admission. Assessment Right hip fracture status post repair 09/08/2016 Vascular dementia Encephalopathy Anemia requiring transfusion on 09/09/2016 and 09/10/2016 Thrombocytopenia-Lovenox discontinued Urinary retention and Walsh replaced UTI with negative cultures so far-Rocephin started Orthostatic hypotension Hypernatremia-resolved Hypokalemia-resolved Plan Recheck CBC and basic metabolic profile tomorrow Consider restarting aspirin soon if hemoglobin is stable and okay with the orthopedic service Restart his usual Klonopin and discontinue Ativan Decrease Haldol from 4 mg IV every every 6 hours when necessary to 1 mg IV every 6 hours when necessary Consult psychiatry regarding encephalopathy Restart gabapentin Restart fludrocortisone for orthostatic hypotension May need to restart Norvasc if blood pressure is elevated Greater than 35 minutes of time spent seeing and evaluating the patient, reviewing chart and determining care plan Plan/Intensity of Service Acute encephalopathy - calmer today; Psych consulted, awaiting recommendations. Thrombocytopenia - platelet count is recovering slowly, up to 118 today. UTI - cx negative at 48 hrs. Cont Rocephin. Suspect he will need to be dc'd with catheter d/t retention. Postop anemia - hgb low but stable at 7.8 - repeat in am. Hypokalemia - ordered KDur 20 mEq. BP elevated but hx of orthostatic hypotension - fludrocortisone was restarted yesterday. May want to assess BP response to PT when he's reassessed tomorrow before increasing antihypertensives. DVT Prophylaxis: SCD'S Code Status Do Not Resuscitate Hospital Course Summary Disclaimer The hospital course summary below is not to be considered part of the above Progress Note. Hospital Course Summary Admit patient to inpatient status under care of Dr. Beard for fall with right hip fracture. Auscultation is placed tube. Dr. Winkler for further orthopedic recommendations and treatment. Obtain the following basic medical screening on admission. CBC, CMP, INR, urinalysis, type and screen, EKG. Will of pain in one view chest x-ray, as well as pelvis with one view right hip Place Walsh catheter to dependent drainage IV lock. Will initiate IV fluids, normal saline at 100 ML per hour Patient may have regular diet this evening, however, will place patient nothing by mouth at midnight Dilaudid as needed for pain control and Zofran available as needed for nausea. Did discuss dementia and advanced directives with patient's daughter. She does verify patient is a do not resuscitate and this orders written. Will discuss further plan of care with attending, Dr. Beard. At time of discharge medical care will return to primary care provider with the pace program, Dr. Master Watson 09/08/16 Planning for surgery today with Dr Emanuel for repair of right hip fracture Medically appears stable for surgery. Reviewed all labs, EKG and X-ray Will follow daily labs to monitor for post-op anemia. Hgb today is 10.2. Walsh cath to DD. Continue with Flomax and Avodart. Spoke with PCP Dr Master Watson this morning regarding post-op discharge plan. He recommends that patient will need a facility for rehab. 09/09/16 Patient has been having significant postoperative encephalopathy. Discontinued Ultram. Will give scheduled Tylenol for pain control. Will add Seroquel 25 milligrams at at bedtime and a PRN order for 25 mg as needed during the day Have asked nursing staff to bladder retraining patient and hopefully discontinue Walsh catheter later today as patient continues to pull on catheter. Reviewed laboratory studies. Noted patient to have thrombocytopenia, platelets decreased to 63 today. Lovenox placed on hold. Hemoglobin 8.4 will continue to follow. Wean off oxygen as able. Spoke with and son-in-law regarding acute encephalopathy and behaviors. Discharge plan is to go to [facility] for skilled rehabilitation as patient is part of the [facility]. Need to recheck CBC and BMP tomorrow morning to follow blood counts, renal function and electrolytes. 09/10/16 Walsh cath was removed last evening, however, patient had urinary retention and Walsh catheter was replaced. Given leukocytosis Chest xray was obtained to rule out pneumonia, and it was unremarkable. Repeat urinalysis was obtained this morning that is positive for ketones, blood, bilirubin, leukocyte esterase with 30-50 RBCs and 10-20 WBCs, 4 + bacteria. Start patient on Rocephin 1 gram IV daily. This acute infection may also be influencing encephalopathy. Hemoglobin today is decreased to 7.6. Will transfuse 1 unit of packed red cells. Continue to monitor. Thrombocytosis, platelet count 94. Continue with Seroquel to assist with behaviors. Patient is currently one-on- one with nursing staff. 09/11/16 Continue with Rocephin IV daily for antimicrobial coverage of urinary tract infection. Postoperative Lovenox continues to be on hold given thrombocytopenia. Platelet today 94. Hemoglobin did trend down today to 7.8. Following blood transfusion yesterday. He may require another unit if hemoglobin continues to drop. Continues to require multiple medications to manage behaviors including oral Seroquel as well as as needed Ativan and Haldol. 09/12/16 Acute encephalopathy - calmer today; Psych consulted, awaiting recommendations. Thrombocytopenia - platelet count is recovering slowly, up to 118 today. UTI - cx negative at 48 hrs. Cont Rocephin. Suspect he will need to be dc'd with catheter d/t retention. Postop anemia - hgb low but stable at 7.8 - repeat in am. Hypokalemia - ordered KDur 20 mEq. BP elevated but hx of orthostatic hypotension - fludrocortisone was restarted yesterday. May want to assess BP response to PT when he's reassessed tomorrow before increasing antihypertensives. POLLY PHILLIPS MD 09/12/16 3084: Assessment & Plan Assessment 09/12/2016-I reviewed this chart, the patient history, and the MOTORCOACH DRIVER's/PA's documented findings as above. We discussed and formulated the assessment and plan as above with the additions below.-Dr. Phillips Patient is not as confused today. He does not appear to be as agitated. His appetite is poor. He did sleep through lunch today. Dr. Georges's consult reviewed and appreciated. The patient was on clonazepam scheduled prior to admission. I will decrease his clonazepam to twice daily. Agree with continued Haldol. The patient has had borderline elevated temperature but no elevated white count or significant left shift. Would recommend use of incentive spirometer. Blood pressure is better after starting fludrocortisone. Hemoglobin is stable. On exam the patient is alert and oriented to self only. He thinks we are in [place]. Chest is clear to auscultation. Cardiovascular reveals a regular rate and rhythm. Abdomen is soft and nontender. Extremities reveal trace edema. Patient moves all 4 extremities on command. We'll decrease clonazepam. Repeat lab work tomorrow. Continue incentive spirometer. Continue Rocephin for apparent UTI on recent urinalysis but urine culture shows no growth for 2 days. Continue gabapentin is a chronic medication. JOSE TOBIN APRN September 12, 2016 11:13 POLLY PHILLIPS MD September 12, 2016 16:44
--- NOTE | 2016-09-12 13:02 | GENHPPDOC ---
[facility] HPI 09/12/16 Time of Service: 11:30 Start Time: 11:30 Stop Time: 12:00 >50% of this visit spent in counseling/coordination care. Chief Complaint: Confusion History of Present Illness HPI: 86 y/o CM admitted 09/07 for hip fracture. Pt has a hx of dementia and has had some confusion and aggression toward nursing staff. Nursing reports yesterday pt was confused at times and was spitting on staff and resistant to care. Pt slept poorly last night and is resting quietly today. On face to face the pt is resting in bed and is hard to arouse. He is only oriented to self. Does not appear to be in any pain. PSYCH ROS: Unable to obtain at this time. Pt is only oreinted to self. PAST PSYCH: Pt reportedly has a hx of dementia. Pt is receiving Clonazepam 0.5mg PO TID in the hospital and it is unclear if pt was taking this at home. Past Medical History Past Medical History Dimension BPH. Chronic back pain. Chronic constipation. History of abdominal aortic aneurysm. History of cerebral aneurysm Neuropathy Orthostatic hypotension Surgical History Patient's Surgical History: Abdominal aortic aneurysm repair Cerebral aneurysm repair Current Medications Home Meds Reported Medications Vitamin B Complex (B Complex) 1 Each Tablet, 1 TAB PO AC 09/07/16 Tamsulosin HCl (Tamsulosin HCl) 0.4 Mg Cap.er.24h, 0.4 MG PO QOD, CAP Take 1 capsule, by mouth, 1 time a day (at BEDTIME). 09/07/16 Sennosides (Senna) 8.6 Mg Tablet, 8.6 MG PO BID Y for CONSTIPATION, TAB 09/07/16 Polyethylene Glycol 3350 (Miralax) 17 Gm Powd.pack, 17 G PO BID, BOTTLE Take 17 Grams (1 capful), by mouth, once a day. 09/07/16 Magnesium Hydroxide (Milk of Magnesia) 400 Mg/5 Ml Oral.susp, 30 ML PO DAILY 09/07/16 Clonazepam (Klonopin) 0.5 Mg Tablet, 1 TAB PO TID, TAB 09/07/16 Gabapentin (Gabapentin) 300 Mg Capsule, 1 CAP PO BID, CAP 09/07/16 Fludrocortisone Acetate (Fludrocortisone Acetate) 0.1 Mg Tablet, 0.1 MG PO DAILY , TAB 09/07/16 Aspirin *EC* (Low Dose Aspirin EC) 81 Mg Tablet.dr, 1 TAB PO DAILY, TAB 09/07/16 Lubiprostone (Amitiza) 8 Mcg Capsule, 1 CAP PO BID, CAP 09/07/16 Acetaminophen (Tylenol) 325 Mg Tablet, 2 TAB PO Q6H Y for PAIN, TAB 09/07/16 Allergies: Coded Allergies: No Known Allergies (Unverified , 09/07/16) Family History Family History: unknown by patient Vaccines No Social History Smoking Status: Never smoker Does patient use chewing tobac: No Substance Use Type: does not use Alcohol Intake: none Marital Status: Sexuality: female partner Housing: house Advance Directives: Yes DNR, Yes DPOA for Healthcare Only (ELIEL CHAN) Review of Systems Unable to Obtain ROS Due to: clinical condition [facility] Exam Vitals Vital Signs Date Time Temp Pulse Resp B/P Pulse Ox O2 Delivery O2 Flow Rate FiO2 09/12/16 11:26 98.3 81 16 147/66 94 Room Air 09/09/16 23:01 1.50 Physical examination performed by the hospitalist. Height (Feet): 5 Height (Inches): 11.50 Mental Status Exam Muscle Strength/Tone: Weak Dressing: Casual Grooming: Good Attitude: Cooperative Motor Activity: Retardation Eye Contact: Poor Speech: Slowed Volume: Soft Rhythm: Mumbled Sensory: Drowsy Orientation: Oriented to person Mood: Neutral Affect: Congruent Rate of Thoughts: Delayed Thought Organization: [place] Associations: Illogical Abstract Reasoning: Impaired, concrete Thought Content: Delusions Perception/Psychotic: Hx psychosis,not current Attention Span/Concentration: Short Span Fund of Knowledge: Poor fund of knowledge Memory: Poor-immediate, Poor-recent Suicidal Ideation: None Homicidal Ideation: None Insight: Poor Judgment: Poor Impulse Control: Poor Laboratory Tests Test 09/12/16 07:55 White Blood Count 8.4T/MM3 Red Blood Count 2.44M/MM3 Hemoglobin 7.8GM/DL Hematocrit 22.8% Mean Corpuscular Volume 93.4UM3 Mean Corpuscular Hemoglobin 32.0UUG Mean Corpuscular Hemoglobin Concent 34.2GM/DL RDW Standard Deviation 48.8FL Platelet Count 118T/MM3 Mean Platelet Volume 10.7UM3 Immature Granulocyte % (Auto) 0.5% Neutrophils (%) (Auto) 81.4% Lymphocytes (%) (Auto) 8.1% Monocytes (%) (Auto) 8.6% Eosinophils (%) (Auto) 1.2% Basophils (%) (Auto) 0.2% Absolute Immature Granulocyte (auto 0.04T/MM3 Absolute Neutrophils (auto) 6.9T/MM3 Absolute Lymphocytes (auto) 0.7T/MM3 Absolute Monocytes (auto) 0.7T/MM3 Absolute Eosinophils (auto) 0.1T/MM3 Absolute Basophils (auto) 0.0T/MM3 Turbidity < 20 Sodium Level 144MEQ/L Potassium Level 3.4MEQ/L Chloride Level 106MEQ/L Carbon Dioxide Level 27MEQ/L Anion Gap 11MEQ/L Blood Urea Nitrogen 24.0MG/DL Creatinine 0.9MG/DL Glomerular Filtration Rate Calc 80 BUN/Creatinine Ratio 27RATIO Glucose Level 111MG/DL Calculated Osmolality 282MOSM/KG Calcium Level 8.7MG/DL Icterus Index < 2 Chemistry Specimen Hemolysis < 15 Assessment and Plan (1) Major neurocognitive disorder (2) Delirium due to multiple etiologies (3) Hip fracture, right Qualifiers: Qualified Codes: S72.001A - Fracture of unspecified part of neck of right femur, initial encounter for closed fracture (4) Orthostatic hypotension Agree with use of Haldol PRN. Would consider using Haldol 0.5mg PO or IM Q6 PRN. Will check QT on EKG. Would recommend stopping Seroquel both scheduled dose and PRN for concern of making confusion worse. Will discuss with primary team use of Clonazepam and concern this could contribute to delirium. TOREY GONZALES MD September 12, 2016 12:57
[2016-09-12] MEDS ORDERED: HALOPERIDOL 5 MG/ML INJECTION IV PRN (13:15)
[2016-09-12 16:08] VITALS: BP 155/77; PULSE 107; RESP 20; TEMP 98.6; O2SAT 96
--- NOTE | 2016-09-12 18:26 | NUR ---
END OF SHIFT REPORT PATIENT A/O TO PERSON AND TIME. VITAL SIGNS STABLE. ROOM AIR. AFEBRILE. PT CURRENTLY AT BEDREST. PATIENT SLEPT FROM [id number] AND AGAIN FROM [id number]. PATIENT HAS NOT BEEN COMBATIVE/AGGRESSIVE WITH STAFF DURING THE SHIFT. SCHEDULED TYLENOL WAS NOT GIVEN AT 1445 DUE TO PATIENT SLEEPING. TWO LOOSE STOOLS DURING THE SHIFT. C.DIFF SAMPLE OBTAINED AND SENT TO LAB. RESULTS PENDING. DENIES N/V, CHEST PAIN, AND SOA. NO PRNS GIVEN DURING THE SHIFT. WILL CONTINUE TO MONITOR.
[2016-09-12 20:06] VITALS: BP 173/85; PULSE 88; RESP 20; TEMP 97.9; O2SAT 94
[2016-09-12] MEDS: DUTASTERIDE 0.5 MG CAPSULE PO SCH (20:31)
[2016-09-12] MEDS: TAMSULOSIN 0.4 MG CAPSULE PO SCH (20:31)
[2016-09-12 20:33] LABS: C. DIFFICILE TOXIN B NEGATIVE (NEGATIVE)
--- NOTE | 2016-09-12 21:05 | NUR ---
Pt insisted on getting up to the commode. States he needs to have a BM. Pt helped up with gatebelt and assist x3. Pt had a small loose BM.
--- NOTE | 2016-09-12 21:52 | NUR ---
Pt ate half a sandwich. RN was able to help him brush his teeth. Pt is unable to understand that he should spit out the toothpaste. Pt is agitated.
[2016-09-13 00:11] VITALS: BP 137/69; PULSE 78; RESP 20; TEMP 98.4; O2SAT 95
[2016-09-13] MEDS: ACETAMINOPHEN 500 MG TABLET PO SCH ×5 (00:45→20:47)
--- NOTE | 2016-09-13 01:13 | NUR ---
PROVIDER NOTIFICATION Contacted Dr. Wooten via [employer] to request that patient's vital signs be changed from Q4H to Q8H so that patient would be allowed to sleep. Dr. Wooten said that this was okay.
[2016-09-13] MEDS: NOZIN NASAL SWAB NS SCH ×3 (01:50→16:50)
--- NOTE | 2016-09-13 02:38 | NUR ---
Pt has been resting most of the night so far. When Pt has been repositioned he becomes agitated and pulls at pillows.
--- NOTE | 2016-09-13 04:50 | NUR ---
IV site is flushing with difficulty and leaking. New IV site started in RFA without difficulty.
--- NOTE | 2016-09-13 05:01 | NUR ---
Pt is now willing to change position. He is very cooperative at this time.
[2016-09-13 05:17] LABS: BASOPHILS % (AUTO) 0.4 % (0-2); EOSINOPHILS # (AUTO) 0.4 T/MM3 (0-0.5); EOSINOPHILS % (AUTO) 5.6 % (0-4); HCT - HEMATOCRIT 23.1 % (41-53); HGB - HEMOGLOBIN 7.5 GM/DL (13.5-17.5); IMMATURE GRANULOCYTE # (AUTO) 0.04 T/MM3 (0.00-0.03); IMMATURE GRANULOCYTE % (AUTO) 0.6 % (0.0-0.5); LYMPHOCYTES # (AUTO) 1.1 T/MM3 (1-4.8); MEAN CORPUSCULAR HGB 31.6 UUG (26-34); MEAN CORPUSCULAR HGB CONC(MCHC 32.5 GM/DL (31-37); MEAN CORPUSCULAR VOLUME 97.5 UM3 (80-100); MEAN PLATELET VOLUME 10.8 UM3 (9.4-12.4); MONOCYTES # (AUTO) 0.8 T/MM3 (0-0.8); MONOCYTES % (AUTO) 11.2 % (0-9.0); NEUTROPHILS #(AUTO)-ABSOLUTE 4.7 T/MM3 (1.8-7.7); NEUTROPHILS % (AUTO) 66.2 % (33-66); RED BLOOD COUNT 2.37 M/MM3 (4.50-5.90); WBC - WHITE BLOOD COUNT 7.1 T/MM3 (4.5-11.0)
[2016-09-13 05:32] LABS: ANION GAP 11 MEQ/L (5-15); BUN/CREATININE RATIO 26 RATIO (6-26); CALCIUM 8.7 MG/DL (8.4-10.2); CHLORIDE 108 MEQ/L (98-107); CO2 - CARBON DIOXIDE 25 MEQ/L (22-30); CREATININE 1.1 MG/DL (0.8-1.5); GLOMERULAR FILTRATION RATE 63; GLUCOSE 103 MG/DL (75-110); POTASSIUM 3.3 MEQ/L (3.6-5); SODIUM 144 MEQ/L (134-144)
--- NOTE | 2016-09-13 05:46 | NUR ---
Pt has had a good night. Slept most of the night. Eamon blood for lab and started a new IV without difficulty. Was able to reposition patient around 0500 without patient pulling out pillows. Pt is unable to tell RN where he is or what day or time it is but pt is much less agitated. No PRN medication was needed throughout the machinery cleaner.
[2016-09-13 07:41] VITALS: BP 139/67; PULSE 81; RESP 18; TEMP 97.8; O2SAT 94
[2016-09-13 07:44] VITALS: PULSE 81; RESP 18
[2016-09-13] MEDS: POLYETHYL.GLYCOL 3350 PACKET 17gm PO SCH ×2 (09:00→20:48)
[2016-09-13] MEDS: CLONAZEPAM 0.5 MG TABLET PO SCH ×2 (09:00→20:47)
[2016-09-13] MEDS: GABAPENTIN 300 MG CAPSULE PO SCH ×2 (09:19→20:46)
[2016-09-13] MEDS: POTASSIUM CHLORIDE 20 MEQ TABLET PO SCH ×2 (09:20→16:50)
[2016-09-13] MEDS: SENNA + DOCUSATE TAB PO SCH ×2 (09:20→20:48)
[2016-09-13] MEDS: FLUDROCORTISONE 0.1 MG TABLET PO SCH (09:20)
[2016-09-13] MEDS: VITAMIN B COMP + C TABLET PO SCH (09:20)
[2016-09-13] MEDS: CEFTRIAXONE 1 G in NORMAL SALINE 100 ML IV SCH (09:21)
[2016-09-13] MEDS ORDERED: NS 500 ML IV PRN ×2 (09:30→09:45)
--- NOTE | 2016-09-13 09:57 | PNPDOC ---
JOSE TOBIN MASH FILTER PRESS OPERATOR 09/13/16 0912: Subjective Date DATE: 09/13/16 TIME: 09:12 Subjective Bill was just waking up. He had a good night, did not require any PRN medications. He was able to converse. This morning. He was alert to self, and introduced himself as Bill. He appropriately asked if it was starting to warm up outside. He asked where was from, and then we had a conversation about where he was from. He denied any pain. He denied any nausea or vomiting, but he has not been eating very well. Late last night he did eat half of a sandwich. He has been having liquid bowel movements, and C. difficile was negative. Objective Vital Signs Vital signs Vital Signs Date Time Temp Pulse Resp B/P Pulse Ox O2 Delivery O2 Flow Rate FiO2 09/13/16 07:44 81 18 09/13/16 07:41 97.8 139/67 94 Room Air 09/09/16 23:01 1.50 Height (Feet): 5 Height (Inches): 11.50 Weight (Kilograms): 83.400 General General Appearance: Alert, Orientated x 1, No Acute Distress Eyes (Brief) Eyes: NOT FOUND: scleral icterus Respiratory (Brief) Respiratory: FOUND: clear all sanchez, equal bilaterally Cardiovascular (Brief) Cardiac: FOUND: regular rate, regular rhythm Abdomen (Brief) Abdominal: FOUND: BS normo active x4, soft, NOT FOUND: distended, tender Extremities (Brief) Extremity : Side: Bilateral Extremity Finding: NOT FOUND: edema Musculoskeletal (Brief) Musculoskeletal: NOT FOUND: deformity Integumentary (Brief) Integumentary: FOUND: dry, warm Psychiatric (Brief) Psychiatric: FOUND: alert, attentive, normal affect, oriented (x1) Laboratory Laboratory Laboratory Tests 09/12/16 07:55 09/13/16 04:18 Laboratory Tests 09/12/16 07:55 09/13/16 04:18 Microbiology Microbiology Microbiology Date/Time Source Procedure Growth Status 09/10/16 10:25 Urine, Walsh Indwelling Urine Culture - Final NO GROWTH AFTER 48 HOURS Complete Assessment & Plan Problems: (1) Encephalopathy Status: Acute (2) Hypokalemia Status: Acute Assessment & Plan: POA (3) Urinary tract infection Status: Acute Qualifiers: Urinary tract infection type: catheter-associated UTI Encounter type: subsequent encounter Assessment & Plan: NOT POA (4) Thrombocytopenia Status: Acute Assessment & Plan: Not POA (5) Hip fracture, right Status: Acute Qualifiers: Encounter type: initial encounter Fracture type: closed Qualified Codes: S72.001A - Fracture of unspecified part of neck of right femur, initial encounter for closed fracture (6) Fall Status: Acute Qualifiers: Encounter type: initial encounter Qualified Codes: W19.XXXA - Unspecified fall, initial encounter (7) Blood loss anemia Status: Acute Assessment & Plan: 09/09: Transfusion 1 unit pRBC 09/10: Transfusion 1 unit pRBC (8) BPH (benign prostatic hyperplasia) Status: Chronic (9) Peripheral neuropathy Status: Chronic (10) Orthostatic hypotension Status: Chronic (11) Chronic back pain Status: Chronic (12) Chronic constipation Status: Chronic (13) Dementia Status: Chronic (14) History of AAA (abdominal aortic aneurysm) repair Status: Resolved (15) History of cerebellar hemorrhage Status: Resolved (16) Hypernatremia Status: Resolved Assessment & Plan: POA (17) Vitamin D deficiency Status: Chronic Assessment & Plan: Dx with admission. Plan/Intensity of Service Acute encephalopathy -improving, able to have appropriate conversations; Psych consulted, agree with Haldol if needed. Clonazepam dose was reduced to twice a day. Thrombocytopenia - resolved, platelet count is 137. Will discuss resumption of Lovenox with attending. UTI - cx negative at 48 hrs. Cont Rocephin. Suspect he will need to be dc'd with catheter d/t retention. Postop anemia - hgb low but stable at 7.5 Hypokalemia - ordered KDur 20 mEq x2. BP elevated but hx of orthostatic hypotension - fludrocortisone was restarted yesterday. Will discuss discharge plans with case management. DVT Prophylaxis: SCD'S Code Status Do Not Resuscitate Hospital Course Summary Disclaimer The hospital course summary below is not to be considered part of the above Progress Note. Hospital Course Summary Admit patient to inpatient status under care of Dr. Beard for fall with right hip fracture. Auscultation is placed tube. Dr. Winkler for further orthopedic recommendations and treatment. Obtain the following basic medical screening on admission. CBC, CMP, INR, urinalysis, type and screen, EKG. Will of pain in one view chest x-ray, as well as pelvis with one view right hip Place Walsh catheter to dependent drainage IV lock. Will initiate IV fluids, normal saline at 100 ML per hour Patient may have regular diet this evening, however, will place patient nothing by mouth at midnight Dilaudid as needed for pain control and Zofran available as needed for nausea. Did discuss dementia and advanced directives with patient's daughter. She does verify patient is a do not resuscitate and this orders written. Will discuss further plan of care with attending, Dr. Beard. At time of discharge medical care will return to primary care provider with the pace program, Dr. Master Watson 09/08/16 Planning for surgery today with Dr Emanuel for repair of right hip fracture Medically appears stable for surgery. Reviewed all labs, EKG and X-ray Will follow daily labs to monitor for post-op anemia. Hgb today is 10.2. Walsh cath to DD. Continue with Flomax and Avodart. Spoke with PCP Dr Master Watson this morning regarding post-op discharge plan. He recommends that patient will need a facility for rehab. 09/09/16 Patient has been having significant postoperative encephalopathy. Discontinued Ultram. Will give scheduled Tylenol for pain control. Will add Seroquel 25 milligrams at at bedtime and a PRN order for 25 mg as needed during the day Have asked nursing staff to bladder retraining patient and hopefully discontinue Walsh catheter later today as patient continues to pull on catheter. Reviewed laboratory studies. Noted patient to have thrombocytopenia, platelets decreased to 63 today. Lovenox placed on hold. Hemoglobin 8.4 will continue to follow. Wean off oxygen as able. Spoke with and son-in-law regarding acute encephalopathy and behaviors. Discharge plan is to go to [facility] for skilled rehabilitation as patient is part of the [facility]. Need to recheck CBC and BMP tomorrow morning to follow blood counts, renal function and electrolytes. 09/10/16 Walsh cath was removed last evening, however, patient had urinary retention and Walsh catheter was replaced. Given leukocytosis Chest xray was obtained to rule out pneumonia, and it was unremarkable. Repeat urinalysis was obtained this morning that is positive for ketones, blood, bilirubin, leukocyte esterase with 30-50 RBCs and 10-20 WBCs, 4 + bacteria. Start patient on Rocephin 1 gram IV daily. This acute infection may also be influencing encephalopathy. Hemoglobin today is decreased to 7.6. Will transfuse 1 unit of packed red cells. Continue to monitor. Thrombocytosis, platelet count 94. Continue with Seroquel to assist with behaviors. Patient is currently one-on- one with nursing staff. 09/11/16 Continue with Rocephin IV daily for antimicrobial coverage of urinary tract infection. Postoperative Lovenox continues to be on hold given thrombocytopenia. Platelet today 94. Hemoglobin did trend down today to 7.8. Following blood transfusion yesterday. He may require another unit if hemoglobin continues to drop. Continues to require multiple medications to manage behaviors including oral Seroquel as well as as needed Ativan and Haldol. 09/12/16 Acute encephalopathy - calmer today; Psych consulted, awaiting recommendations. Thrombocytopenia - platelet count is recovering slowly, up to 118 today. UTI - cx negative at 48 hrs. Cont Rocephin. Suspect he will need to be dc'd with catheter d/t retention. Postop anemia - hgb low but stable at 7.8 - repeat in am. Hypokalemia - ordered KDur 20 mEq. BP elevated but hx of orthostatic hypotension - fludrocortisone was restarted yesterday. May want to assess BP response to PT when he's reassessed tomorrow before increasing antihypertensives. 09/13/16 Acute encephalopathy -improving, able to have appropriate conversations; Psych consulted, agree with Haldol if needed. Clonazepam dose was reduced to twice a day. Thrombocytopenia - resolved, platelet count is 137. UTI - cx negative at 48 hrs. Cont Rocephin. Suspect he will need to be dc'd with catheter d/t retention. Postop anemia - hgb low but stable at 7.5 Hypokalemia - ordered KDur 20 mEq x2. BP elevated but hx of orthostatic hypotension - fludrocortisone was restarted yesterday. Will discuss discharge plans with case management. POLLY PHILLIPS MD 09/13/16 [id number]: Assessment & Plan Assessment 09/13/2016-I reviewed this chart, the patient history, and the MASH FILTER PRESS OPERATOR's/PA's documented findings as above. We discussed and formulated the assessment and plan as above with the additions below.-Dr. Phillips The patient was seen in his room today. He was sitting up in a chair getting ready to eat lunch. When I walked in he stated he remembered me from yesterday. Overall he looks like he is doing much better regarding mentation. His nurse stated that he was able to walk with physical therapy to the door today. He denies any pain except in his low back. He denies any lightheadedness. He slept well last night and was much less agitated. He did not require any when necessary Haldol last night. On exam he is alert and in no acute distress. Chest is clear to auscultation. Cardiovascular reveals a regular rate and rhythm. Abdomen is soft and nontender. Extremities are free of edema. Platelets have normalized. Hemoglobin is 7.5 down from 7.8. Patient is not hypotensive. Potassium is 3.3. Overall, the patient appears to be markedly improved. Will monitor overnight and recheck a CBC tomorrow. If hemoglobin is stable to improved we'll likely discharge to [facility] tomorrow. If hemoglobin is significantly worse and he may need a further blood transfusion. Replace potassium orally. Continue with current medications. Can likely discontinue Rocephin after dose tomorrow. Discussed at length with Dr. Watson today. Will discuss with the orthopedic service the best treatment for DVT prophylaxis. Possibly just aspirin. I'm somewhat reluctant to restart Lovenox or try subcutaneous heparin because of the significant drop he had in his platelets previously. Discussed with case management and his nurse today. JOSE TOBIN APRN September 13, 2016 09:12 POLLY PHILLIPS MD September 13, 2016 13:05
--- NOTE | 2016-09-13 11:01 | PDORTHOPN ---
Subjective Date DATE: 09/13/16 TIME: 10:57 Subjective No complaints. Was up a bit last night, and resting comfortably now. Nursing reports he didn't work with PT this weekend. Becomes agitated. Notes right flank bruising. Dressing CDI. Likely from fall. Platelets normalized. Hgb 7.5 Objective Vital Signs Vital signs Vital Signs 09/13/16 09/13/16 09/13/16 00:11 07:41 07:44 Temp 98.4 97.8 Pulse 78 81 81 Resp 20 18 18 B/P 137/69 139/67 Pulse Ox 95 94 O2 Delivery Room Air Room Air Height (Feet): 5 Height (Inches): 11.50 Weight (Kilograms): 83.400 General General Appearance: Well Developed, Confused, No Acute Distress Comments Sleeping Respiratory (Brief) Respiratory Brief: FOUND: non-labored Cardiovascular (Brief) Cardiac: FOUND: calf easily compressible, calf soft, nontender, pedal pulses intact Capillary Refill: <2 sec Abdomen (Brief) Abdominal Brief: FOUND: non-distended, non-tender, soft Extremities (Brief) Extremity : Side: Right Extremity: hip Extremity Findings: FOUND: other (brusing above hip on right flank, mild ttp ) Musculoskeletal (Brief) Hip: FOUND other (Varus right knee with flexion contracture), FOUND painful PROM, FOUND tender over trochanter, NOT FOUND abnormal rotation, NOT FOUND unequal leg length Musculoskeletal Brief: FOUND: loss of motion, tenderness, Not FOUND: deformity Surgical Site Incision: FOUND: Mepilex dressing intact, clean, dry, intact, no drainage Integumentary (Brief) Integumentary Brief: FOUND dry, FOUND pink, FOUND warm Neurologic (Brief) Neurological Brief: FOUND: extremities w/o deficits, neuro intact Psychiatric (Brief) Psychiatric Brief: FOUND: no acute distress Laboratory Laboratory Laboratory Tests 09/12/16 07:55 09/13/16 04:18 Laboratory Tests 09/12/16 07:55 09/13/16 04:18 Assessment & Plan Problems: (1) Fracture of femoral neck, right, closed Status: Acute Qualifiers: Encounter type: initial encounter Qualified Codes: S72.001A - Fracture of unspecified part of neck of right femur, initial encounter for closed fracture Assessment & Plan: s/p Right hip endoprosthesis by 09/09/16 Lovenox for DVT prevention for 30 days post op. SCDs and mobilize today hospitalist for medical management. Hospital Course Summary Disclaimer The visit summary below is not to be considered part of the above Progress Note. Hospital Course Admit patient to inpatient status under care of Dr. Beard for fall with right hip fracture. Auscultation is placed tube. Dr. Winkler for further orthopedic recommendations and treatment. Obtain the following basic medical screening on admission. CBC, CMP, INR, urinalysis, type and screen, EKG. Will of pain in one view chest x-ray, as well as pelvis with one view right hip Place Walsh catheter to dependent drainage IV lock. Will initiate IV fluids, normal saline at 100 ML per hour Patient may have regular diet this evening, however, will place patient nothing by mouth at midnight Dilaudid as needed for pain control and Zofran available as needed for nausea. Did discuss dementia and advanced directives with patient's daughter. She does verify patient is a do not resuscitate and this orders written. Will discuss further plan of care with attending, Dr. Beard. At time of discharge medical care will return to primary care provider with the [facility], Dr. Master Watson 09/08/16 Planning for surgery today with Dr Emanuel for repair of right hip fracture Medically appears stable for surgery. Reviewed all labs, EKG and X-ray Will follow daily labs to monitor for post-op anemia. Hgb today is 10.2. Walsh cath to DD. Continue with Flomax and Avodart. Spoke with PCP Dr Master Watson this morning regarding post-op discharge plan. He recommends that patient will need a facility for rehab. 09/09/16 Patient has been having significant postoperative encephalopathy. Discontinued Ultram. Will give scheduled Tylenol for pain control. Will add Seroquel 25 milligrams at at bedtime and a PRN order for 25 mg as needed during the day Have asked nursing staff to bladder retraining patient and hopefully discontinue Walsh catheter later today as patient continues to pull on catheter. Reviewed laboratory studies. Noted patient to have thrombocytopenia, platelets decreased to 63 today. Lovenox placed on hold. Hemoglobin 8.4 will continue to follow. Wean off oxygen as able. Spoke with and son-in-law regarding acute encephalopathy and behaviors. Discharge plan is to go to [facility] for skilled rehabilitation as patient is [facility]. Need to recheck CBC and BMP tomorrow morning to follow blood counts, renal function and electrolytes. 09/10/16 Walsh cath was removed last evening, however, patient had urinary retention and Walsh catheter was replaced. Given leukocytosis Chest xray was obtained to rule out pneumonia, and it was unremarkable. Repeat urinalysis was obtained this morning that is positive for ketones, blood, bilirubin, leukocyte esterase with 30-50 RBCs and 10-20 WBCs, 4 + bacteria. Start patient on Rocephin 1 gram IV daily. This acute infection may also be influencing encephalopathy. Hemoglobin today is decreased to 7.6. Will transfuse 1 unit of packed red cells. Continue to monitor. Thrombocytosis, platelet count 94. Continue with Seroquel to assist with behaviors. Patient is currently one-on- one with nursing staff. 09/11/16 Continue with Rocephin IV daily for antimicrobial coverage of urinary tract infection. Postoperative Lovenox continues to be on hold given thrombocytopenia. Platelet today 94. Hemoglobin did trend down today to 7.8. Following blood transfusion yesterday. He may require another unit if hemoglobin continues to drop. Continues to require multiple medications to manage behaviors including oral Seroquel as well as as needed Ativan and Haldol. 09/12/16 Acute encephalopathy - calmer today; Psych consulted, awaiting recommendations. Thrombocytopenia - platelet count is recovering slowly, up to 118 today. UTI - cx negative at 48 hrs. Cont Rocephin. Suspect he will need to be dc'd with catheter d/t retention. Postop anemia - hgb low but stable at 7.8 - repeat in am. Hypokalemia - ordered KDur 20 mEq. BP elevated but hx of orthostatic hypotension - fludrocortisone was restarted yesterday. May want to assess BP response to PT when he's reassessed tomorrow before increasing antihypertensives. 09/13/16 Acute encephalopathy -improving, able to have appropriate conversations; Psych consulted, agree with Haldol if needed. Clonazepam dose was reduced to twice a day. Thrombocytopenia - resolved, platelet count is 137. UTI - cx negative at 48 hrs. Cont Rocephin. Suspect he will need to be dc'd with catheter d/t retention. Postop anemia - hgb low but stable at 7.5 Hypokalemia - ordered KDur 20 mEq x2. BP elevated but hx of orthostatic hypotension - fludrocortisone was restarted yesterday. Will discuss discharge plans with case management. PAPA EMANUEL MD September 13, 2016 11:00
[2016-09-13] MEDS: CALCIUM 600mg + VIT D 400 TABLET PO SCH ×2 (11:24→20:46)
[2016-09-13] MEDS ORDERED: POTASSIUM CHLORIDE 20 MEQ TABLET PO ONE (12:00)
--- NOTE | 2016-09-13 15:02 | NUR ---
SPEECH THERAPY: DYSPHAGIA EVALUATION Evaluation completed. See full report in EMR under other reports. Recommend changing diet to dysphagia mechanical soft with ground meat/gravy and regular liquids. Suspect that pt is coughing on residue of solids when drinking liquids. ST will f/u 1x to ensure toleration of diet plan.
--- NOTE | 2016-09-13 15:02 | STEVAL ---
Eval Subjective and History Date/Time of Eval DATE: 09/13/16 TIME: 14:48 Medical Diagnosis Fall with right hip fx, acute encephalopathy Treatment Order: Assessment, Dev./Imp. tx plan Orientations: Alert, Cooperative Primary Complaint: coughing during meals Pain: No (pt denied pain) Date of Onset of Primary Com: 09/13/16 (date of evaluation) Prior History of This Problem: No (unknown) Patient's Goals: Pt did not express goals Significant Past Medical Hx: dementia, BPH, chronic back pain, chronic constipation, hx of abdominal aortic aneurysim, neuropathy, orthostatic hypotension Medical History Form Reviewed: Yes Prior Functional Status: Pt does not have the mental capacity to explain functional status. No other family member is present at this time. Current Functional Status: Pt is sitting upright in his chair. He is alert and engages in conversation however, does not make sense and is off topic. Education Comment SYSTEMS NAVIGATOR educated patient on reasoning for evaluation. Patient was agreeable to evaluation. Dysphagia Evaluation Evaluation Location: Chair Evaluation Angle: 90 Tongue Elevation: No Impairment (WFL) Tongue Lateralization: No Impairment (WFL) Tongue Protrusion: No Impairment (WFL) Tongue Retraction: No Impairment (WFL) Tongue Extension Midline: No Impairment (WFL) Labial Approximation: No Impairment (WFL) Intraoral Air Pressure: No Impairment (WFL) Volitional Cough: No Impairment (WFL) Palatal Elevation: No Impairment (WFL) Larynx Elevation During Swallo: No Impairment (WFL) Saliva Control: No Impairment (WFL) Dentition: Natural Oral Peripheral Exam Comment: Pt is able to follow oral motor commands without difficulty. He presents with adequate OM range of motion. His voice is dry and clear. Lip Seal: Adequate-liquid, Adequate-pudding, Adequate-solid Lingual Manipulation: Adequate-liquid, Adequate-pudding, Adequate-solid Chewing: Adequate-solid Oral cavity clear post swallow: Adequate-liquid, Adequate-pudding, Inadequate- solid (slight residue noted post swallow) Swallow initiated w/o delay: Adequate-liquid, Adequate-pudding, Adequate-solid Multiple swallows not needed: Adequate-liquid, Adequate-pudding, Adequate-solid Voice clear&dry post swallow: Adequate-liquid, Adequate-pudding, Adequate-solid No cough/throat clear: Adequate-liquid, Adequate-pudding, Adequate-solid (Pt was assessed with trials of thin water, pudding and a gigi cracker.) Assessment/Plan of Care Speech Therapy Impressions: Pt presents with mild oropharyngeal dysphagia characterized by slight residue in the oral cavity with solids post swallow. RN reports that pt has been coughing with solids and liquids. Pt tolerated trials of thin liquid without s/s of aspiration. Suspect that pt may be choking on residue from solids when drinking liquids. Pt demonstrated toleration of pudding consistency without s/s of aspiration as well. Recommend a dysphagia mech. soft diet with ground meat/gravy and regular liquids. ST will f/u to ensure toleration of this diet. Long-Term Goal: Pt will maintain nutrition and hydration of the least restrictive diet while demonstrating no s/s of aspiration for [1] consecutive trials. Short Term Goal: Pt will consume a [dysphagia mech soft] consistency with [reg] liquids without outward signs of aspiration at bedside in 85% of trials. Pt will demonstrate [2] out of [3] components necessary for a safe swallow as listed from the following [1. Pt will take small sips/bites, 2. pt will use a secondary dry swallow and throat clearing, 3. Pt will alternate sips with bites.]. ST Treatment Plan: Swallow Precautions, Modified Diet ST Treatment Plan Frequency: one time per week Treatment Plan Duration: one week Plan of Care Comment ST will f/u with pt 1x to ensure toleration of diet plan. Recommended Diet: Dysphagia mech. soft, regular liquids Date of Visit 09/13/16 Time Visit Began: 13:45 Time Visit Ended: 14:15 ST Assess/Plan of Care: ST Treatment Charge: Swallow Eval Minutes of Individual Therapy: 30 SHANNAN SKY MA September 13, 2016 14:51
--- NOTE | 2016-09-13 16:07 | NUR ---
MIGUEL A GRADY SPOKE WITH ANTONINA AT [facility] DISCUSSED AT THIS TIME PLANS TO DC PT ON 09/14/2016 AND THIS CM WILL CONTACT [facility] WITH FURTHER INFORMATION TOMORROW.
[2016-09-13 16:57] VITALS: BP 133/66; PULSE 83; RESP 18; TEMP 97.3; O2SAT 95
--- NOTE | 2016-09-13 18:49 | NUR ---
SHIFT SUMMARY PATIENT VITALS ARE STABLE AND PATIENT IS ON ROOM AIR. PATIENT IS ALERT TO PERSON AND TIME ONLY. PATIENT HAS AMBULATED WITH NURSING STAFF 1X, AND 1X WITH PT TO DOOR AND BACK. PATIENT UP WITH 3X ASSIST GB, AND FWW. PATIENT DRESSING IS CLEAN, DRY, AND INTACT. NO PRN'S WERE NEEDED FOR THIS SHIFT. PATIENT IS INCONTINENT OF BOWEL AT TIMES. SMALLS IS PATENT AND DRAINING. WILL CONTINUE TO MONITOR.
[2016-09-13 20:00] VITALS: PULSE 81; RESP 18
[2016-09-13] MEDS: TAMSULOSIN 0.4 MG CAPSULE PO SCH (20:47)
[2016-09-13] MEDS: DUTASTERIDE 0.5 MG CAPSULE PO SCH (20:47)
[2016-09-14] VITALS: BP 143/86; PULSE 88; RESP 16; TEMP 98.5; O2SAT 93
[2016-09-14] MEDS: NOZIN NASAL SWAB NS SCH ×2 (00:30→09:34)
--- NOTE | 2016-09-14 00:33 | NUR ---
PT wide awake sitting at bedside. PT does not want to go to sleep at this time. PT refuses pain, refusing his tylenol at this time. PT was not combative but initially refusing to lay down, RN explained the importance of sleep and his healing. PT agreed to lay down at this time. RN sitting at bedside with patient 1-1 at this time. PT is laying just visiting with RN. He is wanting to call his mom at this time, PT mom has per report. PT has been awake on and off since RN has assumed care at 1900.
[2016-09-14] MEDS: ACETAMINOPHEN 500 MG TABLET PO SCH ×3 (01:45→13:49)
--- NOTE | 2016-09-14 02:26 | NUR ---
PT being combative with staff. PT instructed multiple times not to hit. PT not following commands. PT swung at RNS head and tried throwing remote control at RN. RN took remote from patient. RN called for charge nurse to help RN get patient scooted back up in bed. PT very angry and combative at this time, another RN entered room. Halidol was given at this time.
--- NOTE | 2016-09-14 06:20 | NUR ---
PT was up most of night until halidol was given. PT then calmed down and slept for a bit. PT woke up again but was reoriented and was not combative with RN this time. PT neurovascular checks were wnl throughout shift. VSS. PT denied pain overnight and refused his tylenol. PT on RA. RN was 1-1 with patient overnight. RN will continue to monitor until next shift comes on.
[2016-09-14 07:30] VITALS: BP 177/84; PULSE 86; RESP 18; TEMP 98; O2SAT 96
--- NOTE | 2016-09-14 07:45 | PDORTHOPN ---
Subjective Date DATE: 09/14/16 TIME: 07:42 Subjective No complaints. No pain. D/C plan in place for SWV today. Objective Vital Signs Vital signs Vital Signs 09/13/16 09/14/16 09/14/16 20:00 00:00 07:30 Temp 98.5 98.0 Pulse 81 88 86 Resp 18 16 18 B/P 143/86 177/84 Pulse Ox 93 96 O2 Delivery Room Air Room Air Height (Feet): 5 Height (Inches): 11.50 Weight (Kilograms): 80.600 General General Appearance: Well Developed, Confused, No Acute Distress Respiratory (Brief) Respiratory Brief: FOUND: non-labored Cardiovascular (Brief) Cardiac: FOUND: calf easily compressible, calf soft, nontender, pedal pulses intact Capillary Refill: <2 sec Abdomen (Brief) Abdominal Brief: FOUND: non-distended, non-tender, soft Extremities (Brief) Extremity : Extremity: hip Extremity Findings: FOUND: other (brusing above hip on right flank, mild ttp ) Musculoskeletal (Brief) Hip: FOUND other (Varus right knee with flexion contracture), FOUND painful PROM, FOUND tender over trochanter, NOT FOUND abnormal rotation, NOT FOUND unequal leg length Musculoskeletal Brief: FOUND: loss of motion, tenderness, Not FOUND: deformity Surgical Site Incision: FOUND: Mepilex dressing intact, clean, dry, intact, no drainage Integumentary (Brief) Integumentary Brief: FOUND brusing (Right flank, negative AP compression test of ribs), FOUND dry, FOUND pink, FOUND warm Neurologic (Brief) Neurological Brief: FOUND: extremities w/o deficits, neuro intact Psychiatric (Brief) Psychiatric Brief: FOUND: no acute distress Laboratory Laboratory Laboratory Tests 09/12/16 07:55 09/13/16 04:18 Laboratory Tests 09/12/16 07:55 09/13/16 04:18 Assessment & Plan Problems: (1) Fracture of femoral neck, right, closed Status: Acute Qualifiers: Encounter type: initial encounter Qualified Codes: S72.001A - Fracture of unspecified part of neck of right femur, initial encounter for closed fracture Assessment & Plan: s/p Right hip endoprosthesis by 09/09/16 Lovenox for DVT prevention for 30 days post op. follow up with [facility] [place] in 2 weeks. SCDs and mobilize today hospitalist for medical management. Orthopaedically ready for discharge. Hospital Course Summary Disclaimer The visit summary below is not to be considered part of the above Progress Note. Hospital Course Admit patient to inpatient status under care of Dr. Beard for fall with right hip fracture. Auscultation is placed tube. Dr. Winkler for further orthopedic recommendations and treatment. Obtain the following basic medical screening on admission. CBC, CMP, INR, urinalysis, type and screen, EKG. Will of pain in one view chest x-ray, as well as pelvis with one view right hip Place Walsh catheter to dependent drainage IV lock. Will initiate IV fluids, normal saline at 100 ML per hour Patient may have regular diet this evening, however, will place patient nothing by mouth at midnight Dilaudid as needed for pain control and Zofran available as needed for nausea. Did discuss dementia and advanced directives with patient's daughter. She does verify patient is a do not resuscitate and this orders written. Will discuss further plan of care with attending, Dr. Beard. At time of discharge medical care will return to primary care provider with the pace program, Dr. Master Watson 09/08/16 Planning for surgery today with Dr Emanuel for repair of right hip fracture Medically appears stable for surgery. Reviewed all labs, EKG and X-ray Will follow daily labs to monitor for post-op anemia. Hgb today is 10.2. Walsh cath to DD. Continue with Flomax and Avodart. Spoke with PCP Dr Master Watson this morning regarding post-op discharge plan. He recommends that patient will need a facility for rehab. 09/09/16 Patient has been having significant postoperative encephalopathy. Discontinued Ultram. Will give scheduled Tylenol for pain control. Will add Seroquel 25 milligrams at at bedtime and a PRN order for 25 mg as needed during the day Have asked nursing staff to bladder retraining patient and hopefully discontinue Walsh catheter later today as patient continues to pull on catheter. Reviewed laboratory studies. Noted patient to have thrombocytopenia, platelets decreased to 63 today. Lovenox placed on hold. Hemoglobin 8.4 will continue to follow. Wean off oxygen as able. Spoke with and son-in-law regarding acute encephalopathy and behaviors. Discharge plan is to go to [facility] for skilled rehabilitation as patient is part of the [facility]. Need to recheck CBC and BMP tomorrow morning to follow blood counts, renal function and electrolytes. 09/10/16 Walsh cath was removed last evening, however, patient had urinary retention and Walsh catheter was replaced. Given leukocytosis Chest xray was obtained to rule out pneumonia, and it was unremarkable. Repeat urinalysis was obtained this morning that is positive for ketones, blood, bilirubin, leukocyte esterase with 30-50 RBCs and 10-20 WBCs, 4 + bacteria. Start patient on Rocephin 1 gram IV daily. This acute infection may also be influencing encephalopathy. Hemoglobin today is decreased to 7.6. Will transfuse 1 unit of packed red cells. Continue to monitor. Thrombocytosis, platelet count 94. Continue with Seroquel to assist with behaviors. Patient is currently one-on- one with nursing staff. 09/11/16 Continue with Rocephin IV daily for antimicrobial coverage of urinary tract infection. Postoperative Lovenox continues to be on hold given thrombocytopenia. Platelet today 94. Hemoglobin did trend down today to 7.8. Following blood transfusion yesterday. He may require another unit if hemoglobin continues to drop. Continues to require multiple medications to manage behaviors including oral Seroquel as well as as needed Ativan and Haldol. 09/12/16 Acute encephalopathy - calmer today; Psych consulted, awaiting recommendations. Thrombocytopenia - platelet count is recovering slowly, up to 118 today. UTI - cx negative at 48 hrs. Cont Rocephin. Suspect he will need to be dc'd with catheter d/t retention. Postop anemia - hgb low but stable at 7.8 - repeat in am. Hypokalemia - ordered KDur 20 mEq. BP elevated but hx of orthostatic hypotension - fludrocortisone was restarted yesterday. May want to assess BP response to PT when he's reassessed tomorrow before increasing antihypertensives. 09/13/16 Acute encephalopathy -improving, able to have appropriate conversations; Psych consulted, agree with Haldol if needed. Clonazepam dose was reduced to twice a day. Thrombocytopenia - resolved, platelet count is 137. UTI - cx negative at 48 hrs. Cont Rocephin. Suspect he will need to be dc'd with catheter d/t retention. Postop anemia - hgb low but stable at 7.5 Hypokalemia - ordered KDur 20 mEq x2. BP elevated but hx of orthostatic hypotension - fludrocortisone was restarted yesterday. Will discuss discharge plans with case management. MORRO RODRIGUEZ September 14, 2016 07:45
[2016-09-14] MEDS ORDERED: ASPIRIN *EC* 325mg TABLET PO SCH (08:00)
[2016-09-14 08:47] LABS: HCT - HEMATOCRIT 25.5 % (41-53); HGB - HEMOGLOBIN 8.2 GM/DL (13.5-17.5); MEAN CORPUSCULAR HGB 31.1 UUG (26-34); MEAN CORPUSCULAR HGB CONC(MCHC 32.2 GM/DL (31-37); MEAN CORPUSCULAR VOLUME 96.6 UM3 (80-100); MEAN PLATELET VOLUME 10.6 UM3 (9.4-12.4); RED BLOOD COUNT 2.64 M/MM3 (4.50-5.90)
[2016-09-14 08:58] LABS: ANION GAP 12 MEQ/L (5-15); BUN/CREATININE RATIO 25 RATIO (6-26); CALCIUM 8.8 MG/DL (8.4-10.2); CHLORIDE 106 MEQ/L (98-107); CO2 - CARBON DIOXIDE 27 MEQ/L (22-30); GLOMERULAR FILTRATION RATE 71; GLUCOSE 115 MG/DL (75-110); POTASSIUM 3.5 MEQ/L (3.6-5); SODIUM 145 MEQ/L (134-144)
[2016-09-14] MEDS: SENNA + DOCUSATE TAB PO SCH (09:00)
[2016-09-14] MEDS ORDERED: POTASSIUM CHLORIDE 20 MEQ TABLET PO ONE (09:00)
[2016-09-14] MEDS: POLYETHYL.GLYCOL 3350 PACKET 17gm PO SCH (09:00)
[2016-09-14 09:22] VITALS: PULSE 86; RESP 18
[2016-09-14] MEDS: CEFTRIAXONE 1 G in NORMAL SALINE 100 ML IV SCH (09:29)
[2016-09-14] MEDS: CALCIUM 600mg + VIT D 400 TABLET PO SCH (09:29)
[2016-09-14] MEDS: VITAMIN B COMP + C TABLET PO SCH (09:29)
[2016-09-14] MEDS: FLUDROCORTISONE 0.1 MG TABLET PO SCH (09:30)
[2016-09-14] MEDS: GABAPENTIN 300 MG CAPSULE PO SCH (09:32)
[2016-09-14] MEDS: CLONAZEPAM 0.5 MG TABLET PO SCH (09:38)
--- NOTE | 2016-09-14 10:15 | NUR ---
MIGUEL A GRADY LEFT A MESSAGE FOR [facility]AA[facility] WITH [facility], SHE WAS WANTING TO KNOW IF WALKER WAS NEEDED. ALSO MENTIONED THAT DR HAN IS PLANNING DISCHARGE TODAY.
--- NOTE | 2016-09-14 10:23 | STDAILYN ---
ST Daily Note Date/Time DATE: 09/14/16 TIME: 10:04 Subjective Comment Pt was positioned upright in the chair for breakfast. He was alert and cooperative for therapy. He denied any acute c/o pain. Orientations: Alert, Cooperative Chief Complaint: hip fx, dysphagia Pain: No Was Patient Education Provided: Yes Person(s) Educated: Patient Instruction Understanding Demo: Education unsuccessful *Speech Therapy Impressions Dysphagia tx: Pt is currently on a dysphagia mechanical soft diet with gravy and regular liquids. The pt fed himself but required maximum cues to slow down, and clear the oral cavity. Pt presented a moderate amount of pocketing and residue coating the tongue. Pt demonstrated coughing x1 when he took a sip of liquid most likely due to the residue of ground meat. ST ordered pureed fruit. Pt ate the fruit with no difficulty and no pocketing. The pt stated that he prefers smooth foods. ST Treatment Plan: Swallow Precautions, Modified Diet ST Treatment Plan Frequency: N/A Treatment Plan Duration: discontinue therapy Plan of Care Comment: Pt is tolerating a pureed diet with regular liquids without s/s of aspiration. Start Treatment 1: 09:30 Stop Treatment 1: 10:10 Treatment Duration : ST Treatment Charge: Swallow Treatment Minutes of Individual Therapy: 40 SHANNAN SKY MA September 14, 2016 10:19
--- NOTE | 2016-09-14 10:54 | STDAILYN ---
Discharge Note Date/Time DATE: 09/14/16 TIME: 10:47 Discharge From: Inpatient ST Reason for Discharge: All Goals Met Discharge Destination: [facility] Discharge Summary: Pt was assessed by the ST for swallowing and developing a safe diet plan. The pt demonstrated pocketing and residue coating the tongue with mechanical soft diet. He required moderate to maximum cues to clear the oral cavity which resulted in increased coughing. The pt tolerated a pureed diet well without s/s of aspiration. He required no cues throughout these trials. The pt is tolerating regular liquids without s/s of aspiration as well. The pt stated that he prefers smooth foods. Recommend pureed diet with regular liquids at this time. Recommended Follow-up: Cont. Therapy in [place] SHANNAN Mcgovern MA September 14, 2016 10:50
[2016-09-14] MEDS ORDERED: CLON0.5T PO (11:20)
[2016-09-14] MEDS ORDERED: SENN-156 PO (11:20)
[2016-09-14] MEDS ORDERED: ERGO500044 PO (11:20)
[2016-09-14] MEDS ORDERED: ACET-2321 PO (11:20)
[2016-09-14] MEDS ORDERED: HALO0.5T PO (11:20)
[2016-09-14] MEDS ORDERED: ASPI-917 PO (11:20)
[2016-09-14] MEDS ORDERED: POLY17PO6 PO (11:20)
[2016-09-14] MEDS ORDERED: DUTA0.5C2 PO (11:20)
[2016-09-14] MEDS ORDERED: FERR142T14 PO (11:20)
[2016-09-14] MEDS ORDERED: CALC600T12 PO (11:20)
--- NOTE | 2016-09-14 11:43 | DSPDOC ---
General Date Date DATE: 09/14/16 TIME: 11:27 Attending Physician Polly Phillips MD Admitting Physician Polly Phillips MD Consulting Physician Dex Samano MD Admitting Diagnosis Right hip fracture Discharge Diagnosis Right hip fracture Acute blood loss anemia Thrombocytopenia-resolved [id number] Haldol initiated Dementia Hypokalemia UTI-treated with 5 days of Rocephin Urinary retention-Walsh placed BPH Chronic constipation Chronic back pain History of CVA Vitamin D deficiency Hypernatremia-resolved Procedures Right hip endoprosthesis (hemiarthroplasty and) with Dr. Papa Emanuel on 09/08 Laboratory Item Value Date Time 25-Hydroxy Vitamin D Total 19 ng/mL L 09/07/16 1651 Sodium Level 145 MEQ/L H 09/14/16 0813 Potassium Level 3.5 MEQ/L L 09/14/16 0813 Chloride Level 106 MEQ/L 09/14/16 0813 Carbon Dioxide Level 27 MEQ/L 09/14/16 0813 Anion Gap 12 MEQ/L 09/14/16 0813 Blood Urea Nitrogen 25.0 MG/DL H 09/14/16 0813 Creatinine 1.0 MG/DL 09/14/16 0813 Glomerular Filtration Rate Calc 71 09/14/16 0813 BUN/Creatinine Ratio 25 RATIO 09/14/16 0813 Glucose Level 115 MG/DL H 09/14/16 0813 Calculated Osmolality 284 MOSM/KG H 09/14/16 0813 Calcium Level 8.8 MG/DL 09/14/16 0813 Stool C. difficile Toxin B Gene PCR Negative 09/12/16 1849 Laboratory Tests Test 09/13/16 04:18 09/14/16 08:13 White Blood Count 7.1T/MM3 (4.5-11.0) 9.0T/MM3 (4.5-11.0) Red Blood Count 2.37M/MM3 (4.50-5.90) 2.64M/MM3 (4.50-5.90) Hemoglobin 7.5GM/DL (13.5-17.5) 8.2GM/DL (13.5-17.5) Hematocrit 23.1% (41-53) 25.5% (41-53) Mean Corpuscular Volume 97.5UM3 (80-100) 96.6UM3 (80-100) Mean Corpuscular Hemoglobin 31.6UUG (26-34) 31.1UUG (26-34) Mean Corpuscular Hemoglobin Concent 32.5GM/DL (31-37) 32.2GM/DL (31-37) RDW Standard Deviation 52.2FL (36.9-50.2) 52.0FL (36.9-50.2) Platelet Count 137T/MM3 (130-400) 173T/MM3 (130-400) Mean Platelet Volume 10.8UM3 (9.4-12.4) 10.6UM3 (9.4-12.4) Immature Granulocyte % (Auto) 0.6% (0.0-0.5) Neutrophils (%) (Auto) 66.2% (33-66) Lymphocytes (%) (Auto) 16.0% (23-45) Monocytes (%) (Auto) 11.2% (0-9.0) Eosinophils (%) (Auto) 5.6% (0-4) Basophils (%) (Auto) 0.4% (0-2) Absolute Immature Granulocyte (auto 0.04T/MM3 (0.00-0.03) Absolute Neutrophils (auto) 4.7T/MM3 (1.8-7.7) Absolute Lymphocytes (auto) 1.1T/MM3 (1-4.8) Absolute Monocytes (auto) 0.8T/MM3 (0-0.8) Absolute Eosinophils (auto) 0.4T/MM3 (0-0.5) Absolute Basophils (auto) 0.0T/MM3 (0-0.2) Turbidity < 20 (0-20) < 20 (0-20) Sodium Level 144MEQ/L (134-144) 145MEQ/L (134-144) Potassium Level 3.3MEQ/L (3.6-5) 3.5MEQ/L (3.6-5) Chloride Level 108MEQ/L (98-107) 106MEQ/L (98-107) Carbon Dioxide Level 25MEQ/L (22-30) 27MEQ/L (22-30) Anion Gap 11MEQ/L (5-15) 12MEQ/L (5-15) Blood Urea Nitrogen 28.0MG/DL (9-20) 25.0MG/DL (9-20) Creatinine 1.1MG/DL (0.8-1.5) 1.0MG/DL (0.8-1.5) Glomerular Filtration Rate Calc 63 71 BUN/Creatinine Ratio 26RATIO (6-26) 25RATIO (6-26) Glucose Level 103MG/DL (75-110) 115MG/DL (75-110) Calculated Osmolality 283MOSM/KG (261-280) 284MOSM/KG (261-280) Calcium Level 8.7MG/DL (8.4-10.2) 8.8MG/DL (8.4-10.2) Icterus Index < 2 (0-7) < 2 (0-7) Chemistry Specimen Hemolysis < 15 (0-25) < 15 (0-25) Microbiology Urine culture showed no growth Radiology Pelvic x-ray 09/07/2016 showing closed posttraumatic subcapital right femoral neck fracture Chest x-ray 09/07/2016 showing no acute cardiopulmonary abnormality Hip x-ray 09/07/2016 showing new right femoral prosthesis without evidence of immediate complication X-ray pelvis 09/09/2016 X-ray chest 09/10/2016 shows stable chest without focal pneumonia History of Present Illness Patient is a pleasant 86-year-old gentleman who resides with his in [place], [place] under the care of Dr. Gume Tang with [facility]. This morning, patient was ambulating to the front door to obtain his [employer] Whe[employer] tray when he lost his balance and fell onto the right hip. [facility] for evaluation by his primary care provider, however, was unable to get out of the vehicle. Due to the severity in pain. He was sent to [place] for an outpatient x-ray that revealed a nondisplaced fracture of the right femoral neck. The hospitalist services at [facility] were contacted for direct admission for further inpatient evaluation and treatment. Ketan is seen on admission with his daughter at bedside. He complains of right hip pain and is also noted to have a abrasion to the left knee. He is alert however confused about details and history. Daughter confirms that he does have dementia and verifies the patient is a do not resuscitate. All admission medical screening and labs is pending at time of examination. Hospital Course Patient was admitted on 09/07/2016 with right hip fracture. He underwent surgical repair by Dr. Emanuel on 09/08/2016 with right hip endoprosthesis, as noted above and did well. Postoperatively the patient had a drop in his hemoglobin and platelets. Platelets were as low as 63 and hemoglobin as low as 7.5. On discharge hemoglobin is 8.2 and platelets are 173. There was concern that the Lovenox may have contributed to his thrombocytopenia. At discharge he was started on aspirin 325 mg twice daily for DVT prophylaxis instead of the usual Lovenox. The patient did develop significant bruising around the right thigh. The patient did require a unit of packed red cells on 09/09/2016 and 09/10/2016 will be started on oral iron at discharge. The patient was found to be vitamin D deficient and was started on calcium and vitamin D. The patient did develop urinary retention and Walsh catheter had to be replaced. He will be discharged to the longterm with catheter in place with plans for bladder retraining. He also had what appeared to be UTI on urinalysis and received 5 days of IV Rocephin. Urine culture did not grow any bacteria. The patient did have some difficulties with swallowing and was placed on a pur ed diet with thin liquids. He should [facility] The patient has underlying dementia and developed fairly significant delirium during the hospital course. He was given a couple of doses of Seroquel without much improvement. He was then placed on Haldol when necessary and encephalopathy did improve. He will be discharged on Haldol at at bedtime but this could be stopped if he continues to do well. The patient's Florinef was restarted for his chronic orthostatic hypotension. The patient had mild hypokalemia and was given oral potassium replacement. This will need to be followed up as an outpatient. On 09/14/2016 it was felt that the patient was stable for dismissal to [facility]. Today the patient is alert and pleasant. He does have memory difficulties. On exam chest is clear to auscultation and cardiovascular reveals a regular rate and rhythm. Abdomen is soft and nontender. Extremities are free of edema. He will be discharged to [facility] today. I did coordinate all discharge instructions, orders, meds with Dr. Tang who is the patient's primary care physician with the [facility]. Greater than 1 hour of time was spent seeing and evaluating the patient and coordinating discharge. Problems: (1) Encephalopathy Status: Acute (2) Hypokalemia Status: Acute Assessment & Plan: POA (3) Urinary tract infection Status: Acute Assessment & Plan: NOT POA (4) Thrombocytopenia Status: Acute Assessment & Plan: Not POA (5) Hip fracture, right Status: Acute (6) Fall Status: Acute (7) Blood loss anemia Status: Acute Assessment & Plan: 09/09: Transfusion 1 unit pRBC 09/10: Transfusion 1 unit pRBC (8) BPH (benign prostatic hyperplasia) Status: Chronic (9) Peripheral neuropathy Status: Chronic (10) Orthostatic hypotension Status: Chronic (11) Chronic back pain Status: Chronic (12) Chronic constipation Status: Chronic (13) Dementia Status: Chronic (14) History of AAA (abdominal aortic aneurysm) repair Status: Resolved (15) History of cerebellar hemorrhage Status: Resolved (16) Hypernatremia Status: Resolved Assessment & Plan: POA (17) Vitamin D deficiency Status: Chronic Assessment & Plan: Dx with admission. Code Status Do Not Resuscitate Home Meds Active Scripts Ferrous Sulfate (Slow Fe) 142 Mg Tablet.er, 142 MG PO DAILY, #30 Prov:POLLY PHILLIPS MD 09/14/16 Calcium Carbonate (Calcium) 600 Mg Tablet, 600 MG PO BID., #60 Prov:POLLY PHILLIPS MD 09/14/16 Haloperidol (Haloperidol) 0.5 Mg Tablet, 1 TAB PO HS, #30 TAB Prov:POLLY PHILLIPS MD 09/14/16 Ergocalciferol (Vitamin D2) (Vitamin D2) 50,000 Unit Capsule, 56556 UNIT PO Th@ 09, #4 CAP Prov:POLLY PHILLIPS MD 09/14/16 Dutasteride (Avodart) 0.5 Mg Capsule, 0.5 MG PO HS, #30 CAP Prov:POLLY PHILLIPS MD 09/14/16 Aspirin *EC* (Aspirin EC) 325 Mg Tablet.dr, 325 MG PO BIDWM, #60 TAB Prov:POLLY PHILLIPS MD 09/14/16 Sennosides (Senna) 8.6 Mg Tablet, 8.6 MG PO BID, #60 TAB Prov:POLLY PHILLIPS MD 09/14/16 Polyethylene Glycol 3350 (Miralax) 17 Gm Powd.pack, 17 G PO DAILY, #1 BOTTLE Take 17 Grams (1 capful), by mouth, once a day. Prov:POLLY PHILLIPS MD 09/14/16 Clonazepam (Klonopin) 0.5 Mg Tablet, 1 TAB PO HS, #30 TAB Prov:POLLY PHILLIPS MD 09/14/16 Acetaminophen (Tylenol) 325 Mg Tablet, 2 TAB PO TID Y for PAIN, #60 TAB Prov:POLLY PHILLIPS MD 09/14/16 Reported Medications Tamsulosin HCl (Tamsulosin HCl) 0.4 Mg Cap.er.24h, 0.4 MG PO QOD, CAP Take 1 capsule, by mouth, 1 time a day (at BEDTIME). 09/07/16 Gabapentin (Gabapentin) 300 Mg Capsule, 1 CAP PO BID, CAP 09/07/16 Fludrocortisone Acetate (Fludrocortisone Acetate) 0.1 Mg Tablet, 0.1 MG PO DAILY , TAB 09/07/16 Lubiprostone (Amitiza) 8 Mcg Capsule, 1 CAP PO BID, CAP 09/07/16 Discontinued Reported Medications Vitamin B Complex (B Complex) 1 Each Tablet, 1 TAB PO AC 09/07/16 Magnesium Hydroxide (Milk of Magnesia) 400 Mg/5 Ml Oral.susp, 30 ML PO DAILY 09/07/16 Aspirin *EC* (Low Dose Aspirin EC) 81 Mg Tablet.dr, 1 TAB PO DAILY, TAB 09/07/16 Face to Face Encounter I met with patient on the day of dismissal and discussed follow up appointments , medications, and safety plan. Discharge Disposition [facility]charged to [facility] in good condition Copies To 1: GUME TANG MD; PAPA EMANUEL MD, STEPHANIE L MD September 14, 2016 11:30
--- NOTE | 2016-09-14 11:56 | NUR ---
MIGUEL A TIME OUT COMPLETED WITH
--- NOTE | 2016-09-14 12:30 | CONSPD ---
Consultation Info Date DATE: 09/14/16 TIME: 12:[address] Emanuel Reason for Consultation: evaluate bone health Impression/Recommendation Impression/Recommendation: (1) Fracture of femoral neck, right, closed Status: Acute Qualifiers: Encounter type: initial encounter Qualified Codes: S72.001A - Fracture of unspecified part of neck of right femur, initial encounter for closed fracture Recommendation: s/p Right hip endoprosthesis by 09/09/16 Lovenox for DVT prevention for 30 days post op. follow up with [facility] in 2 weeks. SCDs and mobilize today hospitalist for medical management. Orthopaedically ready for discharge. (2) Osteopenia Status: Chronic Recommendation: Eventual DEXA (3) Vitamin D deficiency Status: Acute Recommendation: will order extra vit D Ortho HPI HPI Elements Location: FOUND hip (right) Injury: Yes (fall at home) Onset: Sudden Radiating: No Duration: FOUND 12-24 hours Previous Surgery: No Previous Injury: No Aggrevated by: FOUND standing, FOUND walking, FOUND all activity, FOUND getting out of a chair Associated Symptoms: NOT FOUND swelling, FOUND sensation of giving way, NOT FOUND numbness Treatments Tried: FOUND pain medications, FOUND rest X-ray Findings: FOUND sub-capital fracture (angulated, varus) Recommendation: FOUND FHR HPI 86 yo male sp fall at home. Transferred from [place] to [facility]. Admitted to hospital service. 09/14/16 fell when reaching for food tray from meals on wheels-had been advised to use walker- no hx of previous fracture or falls Review of Systems Unable to Obtain ROS Due to: clinical condition Past Medical History Adult Problem List Updates Dimension BPH. Chronic back pain. Chronic constipation. History of abdominal aortic aneurysm. History of cerebral aneurysm Neuropathy Orthostatic hypotension Surgical History Patient's Surgical History: Abdominal aortic aneurysm repair Cerebral aneurysm repair Current Medications Acetaminophen (Tylenol) 325 Mg Tablet, 2 TAB PO TID PRN for PAIN Aspirin *EC* (Aspirin EC) 325 Mg Tablet.dr, 325 MG PO BIDWM Calcium Carbonate (Calcium) 600 Mg Tablet, 600 MG PO BID. Clonazepam (Klonopin) 0.5 Mg Tablet, 1 TAB PO HS Dutasteride (Avodart) 0.5 Mg Capsule, 0.5 MG PO HS Ergocalciferol (Vitamin D2) (Vitamin D2) 50,000 Unit Capsule, 50,000 UNIT PO Th@ 09 Ferrous Sulfate (Slow Fe) 142 Mg Tablet.er, 142 MG PO DAILY Fludrocortisone Acetate (Fludrocortisone Acetate) 0.1 Mg Tablet, 0.1 MG PO DAILY , (Reported) Last Taken: UNKNOWN on Unknown Date & Time Gabapentin (Gabapentin) 300 Mg Capsule, 1 CAP PO BID, (Reported) Last Taken: UNKNOWN on Unknown Date & Time Haloperidol (Haloperidol) 0.5 Mg Tablet, 1 TAB PO HS Lubiprostone (Amitiza) 8 Mcg Capsule, 1 CAP PO BID, (Reported) Last Taken: UNKNOWN on Unknown Date & Time Polyethylene Glycol 3350 (Miralax ) 17 Gm Powd.pack, 17 G PO DAILY Take 17 Grams (1 capful), by mouth, once a day. Sennosides (Senna) 8.6 Mg Tablet, 8.6 MG PO BID Tamsulosin HCl (Tamsulosin HCl) 0.4 Mg Cap.er.24h, 0.4 MG PO QOD, (Reported) Take 1 capsule, by mouth, 1 time a day (at BEDTIME). Last Taken: UNKNOWN on Unknown Date & Time Allergies Allergies: Coded Allergies: No Known Allergies (Unverified , 09/07/16) Family History Family History: unknown by patient Vaccines No Social History Smoking Status: Never smoker Does patient use chewing tobac: No Substance Use Type: does not use Alcohol Intake: none Marital Status: Sexuality: female partner Housing: house Advance Directives: Yes DNR, Yes DPOA for Healthcare Only (ELIEL CHAN) Physical Exam General General: well nourished, well developed, no acute distress Respiratory FOUND non-labored, NOT FOUND rales, NOT FOUND wheezes Cardiovascular FOUND pedal pulses intact, FOUND regular rate, FOUND regular rhythm, NOT FOUND peripheral edema Capillary Refill: <2 sec Abdomen Abdominal: FOUND BS normo active x4, FOUND soft, NOT FOUND distended, NOT FOUND tender Musculoskeletal Musculoskeletal : Hip: FOUND other (Varus right knee with flexion contracture), FOUND painful PROM, FOUND tender over trochanter, NOT FOUND abnormal rotation, NOT FOUND unequal leg length Musculoskeletal Brief: FOUND: loss of motion, tenderness, Not FOUND: deformity Integumentary FOUND brusing (Right flank, negative AP compression test of ribs), FOUND dry, FOUND pink, FOUND warm Neurologic FOUND intact to light touch, FOUND no deficits Psychiatric FOUND alert, FOUND normal affect, NOT FOUND oriented Laboratory Laboratory Tests Test 09/14/16 08:13 White Blood Count 9.0T/MM3 Red Blood Count 2.64M/MM3 Hemoglobin 8.2GM/DL Hematocrit 25.5% Mean Corpuscular Volume 96.6UM3 Mean Corpuscular Hemoglobin 31.1UUG Mean Corpuscular Hemoglobin Concent 32.2GM/DL RDW Standard Deviation 52.0FL Platelet Count 173T/MM3 Mean Platelet Volume 10.6UM3 Turbidity < 20 Sodium Level 145MEQ/L Potassium Level 3.5MEQ/L Chloride Level 106MEQ/L Carbon Dioxide Level 27MEQ/L Anion Gap 12MEQ/L Blood Urea Nitrogen 25.0MG/DL Creatinine 1.0MG/DL Glomerular Filtration Rate Calc 71 BUN/Creatinine Ratio 25RATIO Glucose Level 115MG/DL Calculated Osmolality 284MOSM/KG Calcium Level 8.8MG/DL Icterus Index < 2 Chemistry Specimen Hemolysis < 15 Case Report- BMD Demographics Date of Initial Screening: September 14, 2016 Age 86 Date of Fracture: September 07, 2016 Gender: Male Race White Height (Feet): 5 Height (Inches): 11.50 Weight (Kilograms): 81.600 Site of Current Fracture Lower Limb: hip (proximal femur) Fracture History History of fracture age 50 or: No Risk Factors Lifestyle Factors: vitamin D insufficiency (history &/or confirmed by lab) Medications at time of fractur: anticonvulsants History of Rheumatoid Arthriti: No Secondary Osteoporosis d/t con: No Medication Use Nutritional Supplements: calcium, vitamin d Treatment/Counseling Calcium 1200 mg/day (in divide: yes Vitamin D at least 800-1000 IU: yes Regular Weight Bearing and Mus: yes Fall Prevention: yes Smoking Cessation: yes Alcohol Comsumption (no more t: yes Pharmacologic Treatment Recomend Pharmacologic Therapy: No Therapy not recommended due to: bone health assessment ongoing Pharmacologic Therapy Initiate: No Reason Not Initiating Therapy: tx planned for near future Bone Mineral Density Testing Was BMD Testing Recommended?: Yes BMD Testing: planned/scheduled Written Communication Was pt provided with a letter: Yes Letter Provided to pts PCP?: Yes Discharge Status: discharge to SNF/rehab Additional Information Comments Spent 40 min in evaluation of patient They live in a facility that is free of clutter, etc KAYCEE JAQUEZ MD September 14, 2016 12:24
--- NOTE | 2016-09-14 13:15 | PDOCECFAO ---
Admission Orders Admission Orders Admit to: Longterm Allergies: Coded Allergies: No Known Allergies (Unverified , 09/07/16) Admitting Diagnosis Right Hip Fracture Admitting Physician Tonia Phillips MD Code Status Do Not Resuscitate Anticipated LOS: 30 days or less Rehab Potential: Good Rehab Prognosis: Good Diet: Blended/Pureed (pured diet with regular liquids), Mechanical Soft Wound/Incision Care: Keep Mepliex dressing on until follow up. 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 SNF inpatient care is necessary for the following reasons Neuro Assessment, Wound Care/Assessment, Med Admininistration, Postop Assessment Care Cardiac or Respiratory Arrest In Event of Arrest: Do Not Start CPR Resident is Aware of Diagnosis: Yes Laboratory/Radiology CBC with differential and iron level for anemia, basic metabolic profile for hypokalemia on 09/15/2016. Please send to Dr. Watson Additional Orders: Walsh to dependent drainage. On 09/15/2016 in the morning after breakfast clamp Walsh and hold for 4 hours and release for 30 minutes and clamp and hold for 4 hours and then release for 30 minutes. Repeat cycle for [address] Watson for any concerns. Cell phone [phone]. Home phone A follow-up with [facility] has already been scheduled for 09/30/2016 at 9:[address] Watson of date and time and he can change the appointment date if needed [phone] TONIA PHILLIPS MD September 14, 2016 11:27
--- NOTE | 2016-09-14 13:35 | NUR ---
CM I HAVE LEFT A MESSAGE FOR [facility] WITH [facility] THAT WE HAVE DISCHARGE ORDERS TO SET UP TRANSPORTATION. I ALSO CALLED LINDA AT [facility] TO NOTIFY AND THEY ARE READY TO TRANSPORT SOON COORDINATED. SHE WILL CONTACT [facility]. I OPENED THE PORTAL FOR [facility] PER REQUEST.
--- NOTE | 2016-09-14 13:53 | NUR ---
CM UPDATED NURSE AND FAMILY PRESENT IN ROOM ABOUT DISCHARGE PROGRESS, ORDERS HAVE BEEN FAXED AND WAITING FOR TRANSPORTATION TIME FROM [facility].
--- NOTE | 2016-09-14 15:15 | NUR ---
DISCHARGE PATIENT IS ALERT TO PERSON ONLY AT THIS TIME. PATIENT VITALS ARE STABLE AND PATIENT IS ON ROOM AIR. PATIENT LEFT WITH [facility] TRANSPORTATION VIA WHEELCHAIR. PERSONAL BELONGINGS RETURNED AND ID BANDS REMOVED. IV WAS DISCONTINUED. SMALLS WAS NOT REMOVED PER DOCTOR ORDER. DISCHARGE PACKET GIVEN TO [facility] TRANSPORTATION. REPORT GIVEN TO Amanda WILEY RN AT [facility].
[2016-09-15] MEDS ORDERED: CHOLECALCIFEROL 5,000 UNIT CAPSULE PO SCH (09:00)
== END 2016-09-14 15:15 | DRG 469 ==
LOC: EDBD 15:46 → SRG 15:46
PROVIDERS: ADMIT Hospitalist; ATTEND Internal Medicine
PROC: 0SRR019 Replacement of Right Hip Joint, Femoral Surface with Metal Synthetic Substitute, Cemented, Open Approach (ICD-10-PCS; principal; 2016-09-08 13:06)
PROC: 30233N1 Transfusion of Nonautologous Red Blood Cells into Peripheral Vein, Percutaneous Approach (ICD-10-PCS; 2016-09-09)
DX: S72.011A Unspecified intracapsular fracture of right femur, initial encounter for closed fracture (principal); G93.40 Encephalopathy, unspecified; E87.0 Hyperosmolality and hypernatremia; D62 Acute posthemorrhagic anemia; T83.511A Infection and inflammatory reaction due to indwelling urethral catheter, initial encounter; E87.6 Hypokalemia; D69.6 Thrombocytopenia, unspecified; G62.9 Polyneuropathy, unspecified; Z66 Do not resuscitate; R33.9 Retention of urine, unspecified; M85.80 Other specified disorders of bone density and structure, unspecified site; G89.29 Other chronic pain; K59.00 Constipation, unspecified; M54.9 Dorsalgia, unspecified; I95.1 Orthostatic hypotension; F03.90 Unspecified dementia, unspecified severity, without behavioral disturbance, psychotic disturbance, mood disturbance, and anxiety; E55.9 Vitamin D deficiency, unspecified; N40.0 Benign prostatic hyperplasia without lower urinary tract symptoms; Z79.82 Long term (current) use of aspirin; W01.0XXA Fall on same level from slipping, tripping and stumbling without subsequent striking against object, initial encounter; Y93.01 Activity, walking, marching and hiking; Y92.019 Unspecified place in single-family (private) house as the place of occurrence of the external cause; Y99.8 Other external cause status; Y84.6 Urinary catheterization as the cause of abnormal reaction of the patient, or of later complication, without mention of misadventure at the time of the procedure; Y92.239 Unspecified place in hospital as the place of occurrence of the external cause
CPT/HCPCS: 36415; 80048; 80053; 81001; 82306; 82948; 83735; 85014; 85018; 85025; 85027; 85610; 86850; 86870; 86900; 86901; 86922; 87086; 87493; 93005